=== PATIENT | female | born 1930 | race Caucasian/White ===

== ENCOUNTER 2018-05-31 11:05 | Inpatient (IN) | payer BC, MEDICARE ==
--- NOTE | 2018-05-31 11:57 | ED ---
General Adult HPI - General Chief complaint: Arrhythmia/Palpitations Stated complaint: Chest pain Source: patient, family Mode of arrival: wheelchair Limitations: no limitations - History of Present Illness Initial comments: Dictation was produced using [employer] dictation software. please excuse any grammatical, word or spelling errors. Chief Complaint: 88-year-old female past medical history of hypertension, dysrhythmia presents with generalized weakness and abnormal heart rate History of Present Illness: Is 80-year-old female sent in by primary care physician for dysrhythmia. EKG performed at PCPs office showed atrial flutter. Patient has been feeling generally weak for the last 2-3 days. Patient has a history of this dysrhythmia. She takes 25 mg of diltiazem daily. She states that she was instructed to take 2 pills if she began feeling palpitations. Patient denies the sensation of palpitations. She went to her PCPs office today for generalized weakness. Patient denies any pain complaints. She does have some shortness of breath however only with exertion. The ROS documented in this emergency department record has been reviewed and confirmed by me. Those systems with pertinent positive or negative responses have been documented in the HPI. All other systems are other negative and/or noncontributory. - Related Data Home Medications Medication Instructions Recorded Confirmed Aspirin 81 mg PO DAILY 10/24/15 05/31/18 Diltiazem Cd [Cardizem Cd] 120 mg PO DAILY 10/24/15 05/31/18 HYDROcodone/APAP 7.5-325MG [[place] 1 tab PO TID PRN 10/24/15 05/31/18 7.5-325] Metoprolol Tartrate [Lopressor] 25 mg PO BID 10/24/15 05/31/18 Raloxifene [Evista] 60 mg PO DAILY 10/24/15 05/31/18 Spironolactone-Hctz 25-25Mg 1 each PO DAILY 10/24/15 05/31/18 [Aldactazide 25-25Mg] Allergies Allergy/AdvReac Type Severity Reaction Status Date / Time No Known Allergies Allergy Verified 05/31/18 12:14 Review of Systems ROS Statement: Those systems with pertinent positive or pertinent negative responses have been documented in the HPI. ROS Other: All systems not noted in ROS Statement are negative. Past Medical History Past Medical History: Eye Disorder, Hypertension, Musculoskeletal Disorder, Osteoarthritis (OA) Additional Past Medical History / Comment(s): cataracts, uses cane History of Any Multi-Drug Resistant Organisms: None Reported Past Surgical History: Appendectomy, Back Surgery, Section, Joint Replacement, Tubal Ligation Additional Past Surgical History / Comment(s): left knee & left shoulder replaced, back surg. x 2 Past Anesthesia/Blood Transfusion Reactions: Postoperative Nausea & Vomiting ( PONV) Past Psychological History: No Psychological Hx Reported Smoking Status: Former smoker Past Alcohol Use History: Occasional Past Drug Use History: None Reported - Past Family History Sister(s) Family Medical History: Cancer General Exam - General Exam Comments Initial Comments: PHYSICAL EXAM: General Impression: Alert and oriented x3, not in acute distress HEENT: Normocephalic atraumatic, extra-ocular movements intact, pupils equal and reactive to light bilaterally, mucous membranes moist. Cardiovascular: Tachycardic Chest: Lungs clear to auscultation bilaterally, no rhonchi, no wheeze, no rales Abdomen: Bowel sounds present, abdomen soft, non-tender, non-distended, no organomegaly Musculoskeletal: Pulses present and equal in all extremities, no peripheral edema Motor: Power 5/5 bilaterally, no focal deficits noted Neurological: CN II-XII grossly intact, no focal motor or sensory deficits noted Skin: Intact with no visualized rashes Psych: Normal affect and mood Limitations: no limitations Course Vital Signs 05/31/18 05/31/18 11:15 13:21 Temperature 98.0 F Pulse Rate 147 H 78 Respiratory 18 18 Rate Blood Pressure 105/71 100/68 O2 Sat by Pulse 90 L 99 Oximetry Medical Decision Making - Medical Decision Making ED course: Year-old female past medical history of dysrhythmia presents with clinical presentation consistent with atrial flutter. Patient having any other symptoms. No infectious complaints. At this point I believe it's indicated to start patient on rate controlling medications. As upon arrival shows heart rate of 147, O2 sat of 90, rest of vital signs within normal limits. Patient started on Cardizem drip.Patient started on heparin due to tachydysrhythmia ongoing for more than 48 hours. Laboratory evaluation obtained. White blood cell count 11.5, rest of CBC unremarkable. Coag panel is unremarkable. Chemistry panel shows sodium 128 with chloride 89. There is a mild Acidosis. Glucose is 122. Troponin is 0.048. Urinalysis is negative. Troponin elevation is likely secondary to tachydysrhythmia. Patient labs suggests dehydration. Patient given intravenous fluids. She started on Cardizem. Patient be admitted with cardiology on consult. EKG Interpretation: A 12 lead EKG was obtained. It was interpreted by myself and attending physician. There is a P wave before every QRS complex. Rate is 146. Rhythm is atrial flutter, QRS 88, QTc 523. QT is not prolonged. - Lab Data Result diagrams: 05/31/18 11:28 05/31/18 11:28 Lab Results 05/31/18 05/31/18 05/31/18 Range/Units 11:28 11:28 11:28 WBC 11.5 H (3.8-10.6) k/uL RBC 5.19 (3.80-5.40) m/uL Hgb 15.2 (11.4-16.0) gm/dL Hct 46.1 H (34.0-46.0) % MCV 88.7 (80.0-100.0) fL MCH 29.3 (25.0-35.0) pg MCHC 33.0 (31.0-37.0) g/dL RDW 12.7 (11.5-15.5) % Plt Count 357 (150-450) k/uL Neutrophils % 82 % Lymphocytes % 11 % Monocytes % 5 % Eosinophils % 1 % Basophils % 0 % Neutrophils # 9.5 H (1.3-7.7) k/uL Lymphocytes # 1.2 (1.0-4.8) k/uL Monocytes # 0.6 (0-1.0) k/uL Eosinophils # 0.1 (0-0.7) k/uL Basophils # 0.0 (0-0.2) k/uL PT (9.0-12.0) sec INR (<1.2) APTT (22.0-30.0) sec Sodium 128 L (137-145) mmol/L Potassium 4.1 (3.5-5.1) mmol/L Chloride 89 L (98-107) mmol/L Carbon Dioxide 23 (22-30) mmol/L Anion Gap 16 mmol/L BUN 20 H (7-17) mg/dL Creatinine 0.86 (0.52-1.04) mg/dL Est GFR (CKD-EPI)AfAm 70 (>60 ml/min/1.73 sqM) Est GFR (CKD-EPI)NonAf 61 (>60 ml/min/1.73 sqM) Glucose 122 H (74-99) mg/dL Calcium 10.2 (8.4-10.2) mg/dL Magnesium 1.7 (1.6-2.3) mg/dL Total Bilirubin 0.8 (0.2-1.3) mg/dL AST 24 (14-36) U/L ALT 26 (9-52) U/L Alkaline Phosphatase 52 (38-126) U/L Total Creatine Kinase 27 L (30-135) U/L CK-MB (CK-2) 1.9 (0.0-2.4) ng/mL CK-MB (CK-2) Rel Index 7.0 Troponin I 0.048 H* (0.000-0.034) ng/mL Total Protein 7.4 (6.3-8.2) g/dL Albumin 4.4 (3.5-5.0) g/dL TSH 1.380 (0.465-4.680) mIU/L Urine Color Urine Appearance (Clear) Urine pH (5.0-8.0) Ur Specific [place] (1.001-1.035) Urine Protein (Negative) Urine Glucose (UA) (Negative) Urine Ketones (Negative) Urine Blood (Negative) Urine Nitrite (Negative) Urine Bilirubin (Negative) Urine Urobilinogen (<2.0) mg/dL Ur Leukocyte Esterase (Negative) Urine RBC (0-5) /hpf Urine WBC (0-5) /hpf Ur Squamous Epith Cells (0-4) /hpf Urine Mucus (None) /hpf 05/31/18 05/31/18 Range/Units 11:28 12:59 WBC (3.8-10.6) k/uL RBC (3.80-5.40) m/uL Hgb (11.4-16.0) gm/dL Hct (34.0-46.0) % MCV (80.0-100.0) fL MCH (25.0-35.0) pg MCHC (31.0-37.0) g/dL RDW (11.5-15.5) % Plt Count (150-450) k/uL Neutrophils % % Lymphocytes % % Monocytes % % Eosinophils % % Basophils % % Neutrophils # (1.3-7.7) k/uL Lymphocytes # (1.0-4.8) k/uL Monocytes # (0-1.0) k/uL Eosinophils # (0-0.7) k/uL Basophils # (0-0.2) k/uL PT 10.4 (9.0-12.0) sec INR 1.1 (<1.2) APTT 23.6 (22.0-30.0) sec Sodium (137-145) mmol/L Potassium (3.5-5.1) mmol/L Chloride (98-107) mmol/L Carbon Dioxide (22-30) mmol/L Anion Gap mmol/L BUN (7-17) mg/dL Creatinine (0.52-1.04) mg/dL Est GFR (CKD-EPI)AfAm (>60 ml/min/1.73 sqM) Est GFR (CKD-EPI)NonAf (>60 ml/min/1.73 sqM) Glucose (74-99) mg/dL Calcium (8.4-10.2) mg/dL Magnesium (1.6-2.3) mg/dL Total Bilirubin (0.2-1.3) mg/dL AST (14-36) U/L ALT (9-52) U/L Alkaline Phosphatase (38-126) U/L Total Creatine Kinase (30-135) U/L CK-MB (CK-2) (0.0-2.4) ng/mL CK-MB (CK-2) Rel Index Troponin I (0.000-0.034) ng/mL Total Protein (6.3-8.2) g/dL Albumin (3.5-5.0) g/dL TSH (0.465-4.680) mIU/L Urine Color Yellow Urine Appearance Clear (Clear) Urine pH 7.0 (5.0-8.0) Ur Specific [place] 1.009 (1.001-1.035) Urine Protein Negative (Negative) Urine Glucose (UA) Negative (Negative) Urine Ketones Negative (Negative) Urine Blood Negative (Negative) Urine Nitrite Negative (Negative) Urine Bilirubin Negative (Negative) Urine Urobilinogen <2.0 (<2.0) mg/dL Ur Leukocyte Esterase Trace H (Negative) Urine RBC 11 H (0-5) /hpf Urine WBC 1 (0-5) /hpf Ur Squamous Epith Cells <1 (0-4) /hpf Urine Mucus Occasional H (None) /hpf Disposition Clinical Impression: Atrial flutter Disposition: ADMITTED IP TO THIS HOSP Condition: Fair Referrals: Quinn Dailey MD [Primary Care Provider] - 1-2 days Decision Time: 13:59
[2018-05-31 12:06] LABS: Basophils % (A) 0 %; Eosinophils # (A) 0.1 k/uL (0-0.7); Eosinophils % (A) 1 %; HCT 46.1 % (34.0-46.0); HGB 15.2 gm/dL (11.4-16.0); Lymphocytes # (A) 1.2 k/uL (1.0-4.8); Lymphocytes % (A) 11 %; MCH 29.3 pg (25.0-35.0); MCV 88.7 fL (80.0-100.0); Mean Platelet Volume 6.7; Monocytes # (A) 0.6 k/uL (0-1.0); Monocytes % (A) 5 %; Neutrophils # (A) 9.5 k/uL (1.3-7.7); Neutrophils % (A) 82 %; Platelet Count 357 k/uL (150-450); RBC 5.19 m/uL (3.80-5.40); RDW 12.7 % (11.5-15.5); WBC 11.5 k/uL (3.8-10.6)
[2018-05-31 12:25] LABS: Albumin 4.4 g/dL (3.5-5.0); Calcium 10.2 mg/dL (8.4-10.2); Magnesium 1.7 mg/dL (1.6-2.3); Potassium 4.1 mmol/L (3.5-5.1); Total Bilirubin 0.8 mg/dL (0.2-1.3); Total Protein 7.4 g/dL (6.3-8.2)
[2018-05-31 12:33] LABS: INR 1.1 (<1.2); Partial Thromboplastin Time 23.6 sec (22.0-30.0); Prothrombin Time 10.4 sec (9.0-12.0)
[2018-05-31 12:42] LABS: Creatine Kinase MB 1.9 ng/mL (0.0-2.4)
[2018-05-31] MEDS: DILTIAZEM 50 MG in SODIUM CHLORIDE 0.9% 40 ML IV SCH (12:42)
[2018-05-31 12:46] LABS: Troponin I 0.048 ng/mL (0.000-0.034)
[2018-05-31] MEDS ORDERED: HEPARIN SODIUM,PORCINE 5,000 UNIT/ML 1 ML VIAL IV PRN (12:48)
[2018-05-31] MEDS ORDERED: HEPARIN SODIUM,PORCINE 5,000 UNIT/ML 1 ML VIAL IV ONE (12:48)
[2018-05-31] MEDS ORDERED: DILTIAZEM DRIP BOLUS FROM BAG 1 MG SOLN IV ONE (12:49)
[2018-05-31] MEDS ORDERED: HEPARIN SOD,PORK IN 0.45% NACL 25,000 UNIT in 0.45% NACL 1 500ML.BAG IV SCH (13:00)
--- NOTE | 2018-05-31 13:10 | XR ---
EXAMINATION TYPE: XR chest 2V DATE OF EXAM: 05/31/2018 COMPARISON: CT chest 05/03/2012 HISTORY: Dysrhythmia TECHNIQUE: Frontal and lateral views of the chest are obtained. FINDINGS: There is a substernal nodular density which likely corresponds to previously described nod ule from prior CT. The smaller nodule seen on prior exam are not seen definitively. There is scarring suspected at the lingula. No evident pneumothorax or pleural effusion. Patient is rotated and there are overlying cardiac leads. Arthropathy noted in the right shoulder. Postop change noted to the left shoulder. Heart size is likely within normal limits. Pulmonary vascularity and gill are unremarkable . Possible scarring right lower lobe. The aorta is dense. There is mitral annular calcification. IMPRESSION: Indeterminate lung nodule as described. Follow-up recommended.
[2018-05-31 13:12] LABS: Appearance,Urine Clear (Clear); Bilirubin,Urine Negative (Negative); Blood,Urine Negative (Negative); Color,Urine Yellow; Glucose,Urine (UA) Negative (Negative); Ketones,Urine Negative (Negative); Leukocyte Esterase,Urine Trace (Negative); Mucus,Urine Occasional /hpf; Nitrite,Urine Negative (Negative); Protein,Urine Negative (Negative); RBC,Urine 11 /hpf (0-5); Specific Gravity,Urine 1.009 (1.001-1.035); Squamous Epithelial Cell,Urine <1 /hpf (0-4); Urobilinogen,Urine <2.0 mg/dL (<2.0); WBC,Urine 1 /hpf (0-5)
[2018-05-31] MEDS ORDERED: NALOXONE 0.4 MG/ML 1 ML VIAL IV PRN (13:54)
--- NOTE | 2018-05-31 15:29 | P.HPIM ---
History of Present Illness H&P Date: 05/31/18 Chief Complaint: Generalized weakness This is a 88-year-old female with past medical history noted below who presented to the emergency room with generalized weakness. Patient said that her symptoms started 3 days ago when she was feeling generally weak and lightheaded. She denies any chest pain or shortness of breath. She denies any muscle aches. She said that she was getting dizzy when she stand up as well. She went to see her primary care physician An EKG in the office showed evidence of atrial flutter with rapid ventricular response. She was sent to the emergency room for further evaluation. Patient said that she was diagnosed some arrhythmia in the past that she is not sure what it is exactly. 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 She has extended release Cardizem 120 mg listed on her medication list as once daily that she said that she was directed by her PCP to take half a tablet on a daily basis unless her heart rate is elevated then she can take the other half in the evening. She is otherwise known to have underlying hypertension. Patient was evaluated in the emergency room and was found to have atrial flutter with heart rate up to 150. She was started on IV Cardizem drip. She was also started on IV heparin. Chest x-ray showed evidence of a lung nodule. Patient will be admitted to the hospital for further evaluation. She is hemodynamically stable. I have seen and evaluated the patient in the emergency room. She denies any chest pain at this time. Her heart rate is in the 70s on IV Cardizem drip. She is awaiting cardiology evaluation. Review of Systems Review of system: 14 points review of systems were obtained and were negative except to what were mentioned in the HPI. Past Medical History Past Medical History: Eye Disorder, Hypertension, Musculoskeletal Disorder, Osteoarthritis (OA) Additional Past Medical History / Comment(s): has lt eye cataract(had sx on rt one), uses cane when up. "irreg heart beat-takes cardizem", "takes ativan for sleep" History of Any Multi-Drug Resistant Organisms: None Reported Past Surgical History: Appendectomy, Back Surgery, Section, Joint Replacement, Tubal Ligation Additional Past Surgical History / Comment(s): left knee & left shoulder replaced, back surg. x 2, rt eye cataract removed-has lens implant, 1 upper dental implant. Past Anesthesia/Blood Transfusion Reactions: Postoperative Nausea & Vomiting ( PONV) Smoking Status: Former smoker - Past Family History Sister(s) Family Medical History: Cancer Mother Family Medical History: Coronary Artery Disease (CAD) Additional Family Medical History / Comment(s): "heart problems" Father Additional Family Medical History / Comment(s): alcoholic Medications and Allergies Home Medications Medication Instructions Recorded Confirmed Type Aspirin 81 mg PO DAILY 10/24/15 05/31/18 History Diltiazem Cd [Cardizem Cd] 120 mg PO DAILY 10/24/15 05/31/18 History HYDROcodone/APAP 7.5-325MG [[place] 1 tab PO TID PRN 10/24/15 05/31/18 History 7.5-325] Metoprolol Tartrate [Lopressor] 25 mg PO BID 10/24/15 05/31/18 History Raloxifene [Evista] 60 mg PO DAILY 10/24/15 05/31/18 History Spironolactone-Hctz 25-25Mg 1 each PO DAILY 10/24/15 05/31/18 History [Aldactazide 25-25Mg] Allergies Allergy/AdvReac Type Severity Reaction Status Date / Time No Known Allergies Allergy Verified 05/31/18 12:14 Physical Exam Vitals: Vital Signs Temp Pulse Resp BP Pulse Ox 05/31/18 14:00 49 L 18 109/63 98 05/31/18 13:21 78 18 100/68 99 05/31/18 11:15 98.0 F 147 H 18 105/71 90 L Intake and Output 05/31/18 05/31/18 05/31/18 06:59 14:59 22:59 Other: Weight 73.482 kg General: The patient is awake and alert, in no distress Eye: there is normal conjunctiva bilaterally. Neck: The neck is supple, there is no JVD. Cardiovascular: Normal S1-S2, no S3-S4, no murmurs. Respiratory: Lungs clear to auscultation bilaterally Gastrointestinal: Abdomen is soft, nontender Musculoskeletal: There is no pedal edema. Neurological:. Speech is normal. Skin: Skin is warm and dry Results CBC & Chem 7: 05/31/18 11:28 05/31/18 11:28 Labs: Abnormal Lab Results - Last 24 Hours (Table) 05/31/18 05/31/18 05/31/18 Range/Units 11:28 11:28 11:28 WBC 11.5 H (3.8-10.6) k/uL Hct 46.1 H (34.0-46.0) % Neutrophils # 9.5 H (1.3-7.7) k/uL Sodium 128 L (137-145) mmol/L Chloride 89 L (98-107) mmol/L BUN 20 H (7-17) mg/dL Glucose 122 H (74-99) mg/dL Total Creatine Kinase 27 L (30-135) U/L Troponin I 0.048 H* (0.000-0.034) ng/mL Ur Leukocyte Esterase (Negative) Urine RBC (0-5) /hpf Urine Mucus (None) /hpf 05/31/18 Range/Units 12:59 WBC (3.8-10.6) k/uL Hct (34.0-46.0) % Neutrophils # (1.3-7.7) k/uL Sodium (137-145) mmol/L Chloride (98-107) mmol/L BUN (7-17) mg/dL Glucose (74-99) mg/dL Total Creatine Kinase (30-135) U/L Troponin I (0.000-0.034) ng/mL Ur Leukocyte Esterase Trace H (Negative) Urine RBC 11 H (0-5) /hpf Urine Mucus Occasional H (None) /hpf Assessment and Plan Assessment: 1. Atrial flutter with rapid ventricular response, patient was started on IV Cardizem drip and IV heparin. Awaiting cardiology evaluation. Electrolytes within acceptable range except for hyponatremia. Thyroid function test normal. I would order echocardiogram. Resume home dose of metoprolol. Continue telemetry monitoring. 2. Essential hypertension, blood pressure on the lower side. Discontinue hydrochlorothiazide/spironolactone. We will continue to monitor closely. 3. Hypovolemic hyponatremia, may be attributed to diuretics use. Currently discontinued. I would continue gentle IV fluid hydration and recheck of work in the morning. 4. Dizziness, most likely secondary to underlying atrial flutter. I would check orthostatic blood pressure 5. Lung nodule. Seen previously on CT. Consider repeat imaging after discharge Today, I reviewed her medication list and lab work results. Continue current regimen. Awaiting cardiology evaluation. Patient and her son were updated about her current clinical condition. All of their questions answered to their satisfaction.
[2018-05-31] MEDS: SODIUM CHLORIDE 0.9% 1,000 ML IV SCH (18:16)
[2018-05-31] MEDS: LORazepam 1 MG TAB PO PRN (21:48)
[2018-05-31] MEDS: METOPROLOL TARTRATE 25 MG TAB PO SCH (21:48)
[2018-06-01] MEDS: DILTIAZEM 50 MG in SODIUM CHLORIDE 0.9% 40 ML IV SCH ×2 (03:18→10:57)
[2018-06-01] MEDS: HYDROcodone/APAP 7.5-325MG 1 EACH TAB PO PRN ×2 (03:19→17:26)
[2018-06-01 07:00] LABS: Basophils % (A) 0 %; Eosinophils # (A) 0.1 k/uL (0-0.7); Eosinophils % (A) 1 %; HCT 41.2 % (34.0-46.0); HGB 13.3 gm/dL (11.4-16.0); Lymphocytes # (A) 1.8 k/uL (1.0-4.8); Lymphocytes % (A) 24 %; MCH 29.3 pg (25.0-35.0); MCHC 32.2 g/dL (31.0-37.0); MCV 90.9 fL (80.0-100.0); Monocytes # (A) 0.7 k/uL (0-1.0); Monocytes % (A) 9 %; Neutrophils # (A) 4.8 k/uL (1.3-7.7); Neutrophils % (A) 64 %; Platelet Count 310 k/uL (150-450); RBC 4.53 m/uL (3.80-5.40); WBC 7.4 k/uL (3.8-10.6)
[2018-06-01 07:17] LABS: Magnesium 1.6 mg/dL (1.6-2.3); Potassium 3.7 mmol/L (3.5-5.1)
[2018-06-01] MEDS: ASPIRIN 81 MG PO SCH (08:49)
[2018-06-01] MEDS: METOPROLOL TARTRATE 25 MG TAB PO SCH ×3 (08:49→21:53)
[2018-06-01] MEDS: RALOXIFENE 60 MG TAB PO SCH (08:50)
--- NOTE | 2018-06-01 10:53 | P.PN ---
Subjective Progress Note Date: 06/01/18 Patient said that she is not feeling well today. She still having palpitation in her chest. She is tachycardic on telemetry monitoring with heart rate between 101 130. Cardizem drip was discontinued overnight. Patient otherwise denies any chest pain or shortness of breath. Objective - Vital Signs Vital signs: Vital Signs Temp 97.1 F L 06/01/18 08:00 Pulse 98 06/01/18 08:00 Resp 18 06/01/18 08:00 BP 131/80 06/01/18 08:00 Pulse Ox 98 06/01/18 08:00 Intake & Output 05/31/18 06/01/18 06/01/18 18:59 06:59 18:59 Intake Total 667 Balance 667 Weight 74 kg 73.4 kg Intake: Intake, IV Titration 427 Amount Heparin Sod,Pork in 0.45% 102 NaCl 25,000 unit In 0.45 % NaCl 1 500ml.bag @ 12 UNITS/KG/HR 17.63 mls/hr IV .Q24H DAXA Rx#: [id number] Sodium Chloride 0.9% 1, 325 000 ml @ 50 mls/hr IV . Q20H DAXA Rx#:[id number] Oral 240 Other: Voiding Method Toilet Toilet # Voids 3 - Exam General: The patient is awake and alert, in no distress Eye: there is normal conjunctiva bilaterally. Neck: The neck is supple, there is no JVD. Cardiovascular: Normal S1-S2, no S3-S4, no murmurs. Respiratory: Lungs clear to auscultation bilaterally Gastrointestinal: Abdomen is soft, nontender Musculoskeletal: There is no pedal edema. Neurological:. Speech is normal. Skin: Skin is warm and dry - Labs CBC & Chem 7: 06/01/18 06:39 06/01/18 06:39 Labs: Abnormal Lab Results - Last 24 Hours (Table) 05/31/18 05/31/18 05/31/18 Range/Units 11:28 11:28 11:28 WBC 11.5 H (3.8-10.6) k/uL Hct 46.1 H (34.0-46.0) % Neutrophils # 9.5 H (1.3-7.7) k/uL APTT (22.0-30.0) sec Sodium 128 L (137-145) mmol/L Chloride 89 L (98-107) mmol/L BUN 20 H (7-17) mg/dL Glucose 122 H (74-99) mg/dL Total Creatine Kinase 27 L (30-135) U/L Troponin I 0.048 H* (0.000-0.034) ng/mL Ur Leukocyte Esterase (Negative) Urine RBC (0-5) /hpf Urine Mucus (None) /hpf 05/31/18 05/31/18 06/01/18 Range/Units 12:59 19:10 06:39 WBC (3.8-10.6) k/uL Hct (34.0-46.0) % Neutrophils # (1.3-7.7) k/uL APTT 51.4 H (22.0-30.0) sec Sodium 130 L (137-145) mmol/L Chloride 96 L (98-107) mmol/L BUN 18 H (7-17) mg/dL Glucose 101 H (74-99) mg/dL Total Creatine Kinase (30-135) U/L Troponin I (0.000-0.034) ng/mL Ur Leukocyte Esterase Trace H (Negative) Urine RBC 11 H (0-5) /hpf Urine Mucus Occasional H (None) /hpf 06/01/18 06/01/18 Range/Units 06:39 06:39 WBC (3.8-10.6) k/uL Hct (34.0-46.0) % Neutrophils # (1.3-7.7) k/uL APTT 53.4 H (22.0-30.0) sec Sodium (137-145) mmol/L Chloride (98-107) mmol/L BUN (7-17) mg/dL Glucose (74-99) mg/dL Total Creatine Kinase (30-135) U/L Troponin I 0.073 H* (0.000-0.034) ng/mL Ur Leukocyte Esterase (Negative) Urine RBC (0-5) /hpf Urine Mucus (None) /hpf Assessment and Plan Assessment: 1. Atrial flutter with rapid ventricular response, patient was started on IV Cardizem drip and IV heparin. Awaiting cardiology evaluation. Thyroid function test normal. Echocardiogram done awaiting. Resume home dose of metoprolol. Continue telemetry monitoring. 2. Essential hypertension, blood pressure on the lower side. I discontinued hydrochlorothiazide/spironolactone. We will continue to monitor closely. 3. Hypovolemic hyponatremia, may be attributed to diuretics use. Currently discontinued. I would continue gentle IV fluid hydration and recheck of work in the morning. 4. Dizziness, most likely secondary to underlying atrial flutter and possible orthostatic hypotension. Repeat orthostatic blood pressur 5. Lung nodule. Seen previously on CT. Consider repeat imaging after discharge Today, I reviewed her medication list and lab work results. Continue current regimen. Awaiting cardiology evaluation. Patient and her son were updated about her current clinical condition. All of their questions answered to their satisfaction.
--- NOTE | 2018-06-01 10:55 | P.CRDCN ---
History of Present Illness Consult date: 06/01/18 Requesting physician: Consuelo Lux Consult reason: atrial fibrillation Chief complaint: Weakness ,chest pressure History of present illness: This is a pleasant 88-year-old female with past medical history of hypertension, arrhythmia, for which she was on Cardizem 120 at home, she was directed by her primary care physician to take a half a pill in the morning and a half a pill in the evening and that if she felt herself go into a rapid irregular rhythm she was okay to take an additional dose. For approximately 3 days the patient has been experiencing symptoms of weakness and generalized lightheadedness, she also states that she's been having occasional episodes where she feels dull heaviness in her chest. She does also state that when she gets up too fast she has some mild dizziness. Because of the symptoms primarily of weakness she went to primary care physician's office, not her regular doctor he is currently on vacation, and EKG was performed there, patient was found to be in rapid atrial flutter with a heart rate in the 150s to 160s and patient was advised to come to the hospital for further evaluation. Patient denied at that time feeling any palpitations or heart racing, no chest discomfort at that time. Initial EKG on presentation here showed typical atrial flutter with 2-1 AV conduction. Chest x-ray showed intermediate lung nodule as described. Substernal nodular density which is likely related to previously described nodule from prior CAT scan. Blood pressure on arrival here 105/70 with a heart rate in the 150s, 90% on room air, afebrile. Blood pressure this morning 130/80 with a heart rate in the 90s, 98% on room air. Repeat EKG shows atrial fibrillation with moderately rapid ventricular response. White blood cell count on admission 11.5, 7.4 this morning, hemoglobin 15.2 on admission, 13.3 this morning. Platelet count 310. Sodium on admission 128, 130 this morning. BUN 18, creatinine 0.9, magnesium 1.6. Potassium 3.7. Troponin 0.048, 0.073. TSH 1.3. At the time of my examination this morning, patient feels well, no complaints. Past Medical History Past Medical History: Eye Disorder, Hypertension, Musculoskeletal Disorder, Osteoarthritis (OA) Additional Past Medical History / Comment(s): has lt eye cataract(had sx on rt one), uses cane when up. "irreg heart beat-takes cardizem", "takes ativan for sleep" History of Any Multi-Drug Resistant Organisms: None Reported Past Surgical History: Appendectomy, Back Surgery, Section, Joint Replacement, Tubal Ligation Additional Past Surgical History / Comment(s): left knee & left shoulder replaced, back surg. x 2, rt eye cataract removed-has lens implant, 1 upper dental implant. Past Anesthesia/Blood Transfusion Reactions: Postoperative Nausea & Vomiting ( PONV) Smoking Status: Former smoker - Past Family History Sister(s) Family Medical History: Cancer Mother Family Medical History: Coronary Artery Disease (CAD) Additional Family Medical History / Comment(s): "heart problems" Father Additional Family Medical History / Comment(s): alcoholic Medications and Allergies Home Medications Medication Instructions Recorded Confirmed Type Aspirin 81 mg PO DAILY 10/24/15 05/31/18 History Diltiazem Cd [Cardizem Cd] 120 mg PO DAILY 10/24/15 05/31/18 History HYDROcodone/APAP 7.5-325MG [[place] 1 tab PO TID PRN 10/24/15 05/31/18 History 7.5-325] Metoprolol Tartrate [Lopressor] 25 mg PO BID 10/24/15 05/31/18 History Raloxifene [Evista] 60 mg PO DAILY 10/24/15 05/31/18 History Spironolactone-Hctz 25-25Mg 1 each PO DAILY 10/24/15 05/31/18 History [Aldactazide 25-25Mg] LORazepam [Ativan] 1 mg PO HS PRN 05/31/18 05/31/18 History Allergies Allergy/AdvReac Type Severity Reaction Status Date / Time No Known Allergies Allergy Verified 05/31/18 12:14 Physical Exam Vitals: Vital Signs Temp Pulse Pulse Pulse Resp BP BP 06/01/18 08:00 97.1 F L 98 18 131/80 06/01/18 03:58 97.7 F 75 17 103/67 05/31/18 23:45 98.0 F 90 18 95/64 05/31/18 20:00 97.7 F 111 H 18 97/61 05/31/18 18:04 97 F L 78 18 108/57 05/31/18 18:00 78 20 05/31/18 17:32 70 16 108/68 05/31/18 16:10 87 16 108/68 05/31/18 15:20 95 18 122/64 05/31/18 14:00 49 L 18 109/63 05/31/18 13:21 78 18 100/68 05/31/18 11:15 98.0 F 147 H 18 105/71 Pulse Ox 06/01/18 08:00 98 06/01/18 03:58 98 05/31/18 23:45 98 05/31/18 20:00 95 05/31/18 18:04 05/31/18 18:00 05/31/18 17:32 99 05/31/18 16:10 98 05/31/18 15:20 95 05/31/18 14:00 98 05/31/18 13:21 99 05/31/18 11:15 90 L Intake and Output 05/31/18 06/01/18 06/01/18 22:59 06:59 14:59 Intake Total 667 Balance 667 Intake: Intake, IV Titration 427 Amount Heparin Sod,Pork in 0.45% 102 NaCl 25,000 unit In 0.45 % NaCl 1 500ml.bag @ 12 UNITS/KG/HR 17.63 mls/hr IV .Q24H [facility] Rx#: [id number] Sodium Chloride 0.9% 1, 325 000 ml @ 50 mls/hr IV . Q20H [facility] Rx#:[id number] Oral 240 Other: Voiding Method Toilet Toilet Toilet # Voids 3 Weight 74 kg 73.4 kg PHYSICAL EXAMINATION: GENERAL: 88-year-old female in no acute distress at the time of my examination HEENT: Head is atraumatic, normocephalic. Pupils equal, round. Sclera anicteric. Conjunctiva are clear. Mucous membranes of the mouth are moist. Neck is supple. There is no elevated jugular venous pressure. No carotid bruit is heard. HEART EXAMINATION: S1 and S2 irregularly irregular systolic murmur is heard. CHEST EXAMINATION: Lungs are clear to auscultation and precussion. No chest wall tenderness is noted on palpation or with deep breathing. ABDOMEN: Soft, nontender. Bowel sounds are heard. No organomegaly noted. EXTREMITIES: 2+ peripheral pulses with no evidence of peripheral edema and no calf tenderness noted. Mild discoloration noted in bilateral lower extremities NEUROLOGIC patient is awake, alert and oriented X3. . Results 06/01/18 06:39 06/01/18 06:39 Cardiac Enzymes 05/31/18 05/31/18 06/01/18 Range/Units 11:28 11:28 06:39 AST 24 (14-36) U/L CK-MB (CK-2) 1.9 (0.0-2.4) ng/mL Troponin I 0.048 H* 0.073 H* (0.000-0.034) ng/mL Coagulation 05/31/18 05/31/18 06/01/18 Range/Units 11:28 19:10 06:39 PT 10.4 (9.0-12.0) sec APTT 23.6 51.4 H 53.4 H (22.0-30.0) sec CBC 05/31/18 06/01/18 Range/Units 11:28 06:39 WBC 11.5 H 7.4 (3.8-10.6) k/uL RBC 5.19 4.53 (3.80-5.40) m/uL Hgb 15.2 13.3 (11.4-16.0) gm/dL Hct 46.1 H 41.2 (34.0-46.0) % Plt Count 357 310 (150-450) k/uL Comprehensive Metabolic Panel 05/31/18 06/01/18 Range/Units 11:28 06:39 Sodium 128 L 130 L (137-145) mmol/L Potassium 4.1 3.7 (3.5-5.1) mmol/L Chloride 89 L 96 L (98-107) mmol/L Carbon Dioxide 23 26 (22-30) mmol/L BUN 20 H 18 H (7-17) mg/dL Creatinine 0.86 0.92 (0.52-1.04) mg/dL Glucose 122 H 101 H (74-99) mg/dL Calcium 10.2 9.0 (8.4-10.2) mg/dL AST 24 (14-36) U/L ALT 26 (9-52) U/L Alkaline Phosphatase 52 (38-126) U/L Total Protein 7.4 (6.3-8.2) g/dL Albumin 4.4 (3.5-5.0) g/dL Current Medications Generic Name Dose Route Start Last Admin Trade Name Freq PRN Reason Stop Dose Admin Hydrocodone Bitart/Acetaminophen 1 each 05/31/18 15:18 06/01/18 03:19 [place] 7.5-325 PO 1 each TID PRN Administration Moderate Pain Aspirin 81 mg 06/01/18 09:00 06/01/18 08:49 Aspirin PO 81 mg DAILY [facility] Administration Heparin Sodium (Porcine) 0 unit 05/31/18 12:48 Heparin IV PER PROTOCOL PRN Low PTT Protocol Diltiazem HCl 50 mg/ Sodium 50 mls @ 5 mls/hr 05/31/18 12:00 06/01/18 03:18 Chloride IV Not Given .Q10H [facility] 5 MG/HR Heparin Sodium/Sodium Chloride 500 mls @ 17.63 mls/hr 05/31/18 13:00 13:31 25,000 unit/ Sodium Chloride IV 12 units/kg/hr .Q24H [facility] 17.63 mls/hr Administration Protocol 12 UNITS/KG/HR Sodium Chloride 1,000 mls @ 50 mls/hr 05/31/18 15:30 05/31/18 18:16 Saline 0.9% IV Not Given .Q20H [facility] Lorazepam 1 mg 05/31/18 21:34 05/31/18 21:48 Ativan PO 1 mg HS PRN Administration Insomnia Metoprolol Tartrate 25 mg 05/31/18 21:00 06/01/18 08:49 Lopressor PO 25 mg BID [facility] Administration Naloxone HCl 0.2 mg 05/31/18 13:54 Narcan IV Q2M PRN Opioid Reversal Raloxifene HCl 60 mg 06/01/18 09:00 06/01/18 08:50 Evista PO 60 mg DAILY [facility] Administration Intake and Output 05/31/18 06/01/18 06/01/18 22:59 06:59 14:59 Intake Total 667 Balance 667 Intake: Intake, IV Titration 427 Amount Heparin Sod,Pork in 0.45% 102 NaCl 25,000 unit In 0.45 % NaCl 1 500ml.bag @ 12 UNITS/KG/HR 17.63 mls/hr IV .Q24H [facility] Rx#: [id number] Sodium Chloride 0.9% 1, 325 000 ml @ 50 mls/hr IV . Q20H [facility] Rx#:[id number] Oral 240 Other: Voiding Method Toilet Toilet Toilet # Voids 3 Weight 74 kg 73.4 kg 06/01/18 06:39 06/01/18 06:39 EKG Interpretations (text) Initial EKG showed atrial flutter with rapid ventricular response, subsequent EKG this morning shows atrial fibrillation with moderately rapid ventricular Assessment and Plan Plan: Assessment and plan #1 atrial flutter with rapid ventricular response currently in atrial fibrillation with moderately rapid ventricular rate. TSH is normal #2 history of atrial arrhythmia, on Cardizem at home #3 hypertension #4 hypomagnesemia Plan We will obtain an echocardiogram with Doppler study. We will also replace the potassium and magnesium levels. Should is currently on heparin and she has been educated regarding the need for anticoagulation. We will check into one of the newer anticoagulants to see if the patient has coverage, if so we will initiate Eliquis 2-1/2 mg one tablet by mouth twice a day. We will discontinue the IV Cardizem and increase her dose of beta lily to 25 mg one tablet by mouth 3 times a day. Further recommendations to follow. DNP note has been reviewed, I agree with a documented findings and plan of care. Patient was seen and examined.
[2018-06-01] MEDS: APIXABAN 2.5 MG TABLET PO SCH ×2 (13:24→21:52)
--- NOTE | 2018-06-01 14:08 | ECHOF ---
Referral Reason:Aflutter MEASUREMENTS -------- HEIGHT: 172.7 cm WEIGHT: 73.0 kg BP: 103/67 RVIDd: 2.1 cm (< 3.3) IVSd: 1.5 cm (0.6 - 1.1) LVIDd: 4.0 cm (3.9 - 5.3) LVPWd: 1.2 cm (0.6 - 1.1) IVSs: 1.7 cm LVIDs: 2.4 cm LVPWs: 1.4 cm LA Diam: 3.9 cm (2.7 - 3.8) LAESV Index (A-L): 32.81 ml/m Ao Diam: 3.4 cm (2.0 - 3.7) AV Cusp: 1.0 cm (1.5 - 2.6) LA Diam: 4.0 cm (2.7 - 3.8) MV EXCURSION: 15.965 mm (> 18.000) MV EF SLOPE: 163 mm/s (70 - 150) EPSS: 0.3 cm MV E Kai: 0.53 m/s MV DecT: 253 ms MV A Kai: 0.76 m/s MV E/A Ratio: 0.69 RAP: 5.00 mmHg RVSP: 24.94 mmHg FINDINGS -------- The rhythm appears to be atrial flutter. This was a technically adequate study. The left ventricular size is normal. There is moderate concentric left ventricular hypertrophy. O verall left ventricular systolic function is normal with, an EF between 55 - 60 %. The right ventricle is normal in size. The left atrial size is normal. LA is midly dilated 29-33ml/m2. The right atrial size is normal. There is mild aortic valve sclerosis. There is mild aortic regurgitation. Mild mitral annular calcification present. Mild mitral regurgitation is present. Mild tricuspid regurgitation present. There is no evidence of pulmonary hypertension. The right v entricular systolic pressure, as measured by Doppler, is 24.94mmHg. Trace/mild (physiologic) pulmonic regurgitation. The aortic root size is normal. There is no pericardial effusion. CONCLUSIONS -------- 1. The left ventricular size is normal. 2. There is moderate concentric left ventricular hypertrophy. 3. Overall left ventricular systolic function is normal with, an EF between 55 - 60 %. 4. The right ventricle is normal in size. 5. The left atrial size is normal. 6. LA is midly dilated 29-33ml/m2. 7. The right atrial size is normal. 8. There is mild aortic valve sclerosis. 9. There is mild aortic regurgitation. 10. Mild mitral annular calcification present. 11. Mild mitral regurgitation is present. 12. Mild tricuspid regurgitation present. 13. There is no evidence of pulmonary hypertension. 14. The right ventricular systolic pressure, as measured by Doppler, is 24.94mmHg. 15. Trace/mild (physiologic) pulmonic regurgitation. 16. The aortic root size is normal. 17. There is no pericardial effusion. APPLICATIONS CONSULTANT: Clarisa Mcdaniel RDCS
[2018-06-01] MEDS: LORazepam 1 MG TAB PO PRN (21:53)
[2018-06-02 07:06] LABS: Basophils % (A) 0 %; Eosinophils # (A) 0.1 k/uL (0-0.7); Eosinophils % (A) 2 %; HCT 40.1 % (34.0-46.0); HGB 13.2 gm/dL (11.4-16.0); Lymphocytes # (A) 1.4 k/uL (1.0-4.8); Lymphocytes % (A) 20 %; MCH 29.8 pg (25.0-35.0); MCHC 32.9 g/dL (31.0-37.0); MCV 90.6 fL (80.0-100.0); Mean Platelet Volume 6.8; Monocytes # (A) 0.6 k/uL (0-1.0); Monocytes % (A) 9 %; Neutrophils # (A) 4.5 k/uL (1.3-7.7); Neutrophils % (A) 67 %; Platelet Count 304 k/uL (150-450); RBC 4.42 m/uL (3.80-5.40); RDW 12.9 % (11.5-15.5); WBC 6.8 k/uL (3.8-10.6)
[2018-06-02 07:11] LABS: Magnesium 1.8 mg/dL (1.6-2.3)
[2018-06-02] MEDS: SODIUM CHLORIDE 0.9% 1,000 ML IV SCH ×2 (07:31→07:40)
[2018-06-02] MEDS: METOPROLOL TARTRATE 25 MG TAB PO SCH ×3 (07:41→21:43)
[2018-06-02] MEDS: ASPIRIN 81 MG PO SCH (07:41)
[2018-06-02] MEDS: RALOXIFENE 60 MG TAB PO SCH (07:41)
[2018-06-02] MEDS: APIXABAN 2.5 MG TABLET PO SCH ×2 (07:41→19:58)
[2018-06-02] MEDS ORDERED: METOPROLOL TARTRATE 25 MG TAB PO STA (12:26)
--- NOTE | 2018-06-02 13:52 | P.PN ---
Subjective Progress Note Date: 06/02/18 Patient's heart rate is still not well controlled today generally in the 120 range. Cardizem drip was discontinued. Patient denies any shortness of breath or chest pain. Cardiology adjusting her regimen. Objective - Vital Signs Vital signs: Vital Signs Temp 97.8 F 06/02/18 11:14 Pulse 108 H 06/02/18 11:14 Resp 16 06/02/18 11:14 BP 105/63 06/02/18 11:14 Pulse Ox 95 06/02/18 11:14 Intake & Output 06/01/18 06/02/18 06/02/18 18:59 06:59 18:59 Intake Total 230 540 118 Balance 230 540 118 Weight 73.2 kg Intake: Intake, IV Titration 300 Amount Sodium Chloride 0.9% 1, 300 000 ml @ 50 mls/hr IV . Q20H [facility] Rx#:[id number] Oral 230 240 118 Other: Voiding Method Toilet Toilet Toilet # Voids 1 3 - Exam General: The patient is awake and alert, in no distress Eye: there is normal conjunctiva bilaterally. Neck: The neck is supple, there is no JVD. Cardiovascular: Normal S1-S2, no S3-S4, no murmurs. Respiratory: Lungs clear to auscultation bilaterally Gastrointestinal: Abdomen is soft, nontender Musculoskeletal: There is no pedal edema. Neurological:. Speech is normal. Skin: Skin is warm and dry - Labs CBC & Chem 7: 06/02/18 06:28 06/02/18 06:28 Labs: Abnormal Lab Results - Last 24 Hours (Table) 06/01/18 06/02/18 Range/Units 18:39 06:28 Sodium 132 L (137-145) mmol/L Glucose 101 H (74-99) mg/dL Troponin I 0.049 H* (0.000-0.034) ng/mL Assessment and Plan Assessment: 1. Atrial flutter with rapid ventricular response, patient was started on IV Cardizem drip and IV heparin on presentation. Her regimen was adjusted and she is currently on metoprolol and Eliquis for anticoagulation. Thyroid function test normal. Echocardiogram showed preserved ejection fraction and no significant valvular abnormality. Continue telemetry monitoring. 2. Essential hypertension, blood pressure on the lower side. I discontinued hydrochlorothiazide/spironolactone. We will continue to monitor closely. 3. Hypovolemic hyponatremia, may be attributed to diuretics use. Currently discontinued. patient received IV fluid hydration. Sodium level improving slowly. 4 Dizziness, most likely secondary to underlying atrial flutter and possible orthostatic hypotension. Repeat orthostatic blood pressure in the morning 5. Lung nodule. Seen previously on CT. Consider repeat imaging few weeks after discharge Today, I reviewed her medication list and lab work results. Continue current regimen. Patient and her son were updated about her current clinical condition. All of their questions answered to their satisfaction.
--- NOTE | 2018-06-02 15:28 | CDI ---
Last Revision, August 2017 Documentation Clarification Form Date: 06/02/2018 3:00:41 PM From: Ann Marie Ocasio RN, CCDS Admit Date: 05/31/2018 1:54:00 PM Patient Name: Keara Duong Visit Number: [id number] Discharge Date: ATTENTION: The Clinical Documentation Specialists (CDI) and [facility] Coding Staff appreciate your assistance in clarifying documentation. Please respond to the clarification below the line at the bottom and electronically sign. The CDI & [facility] Coding staff will review the response and follow-up if needed. Please note: Queries are made part of the Legal Health Record. If you have any questions, please contact the author of this message via ITS. Deena Campbell Atrial fibrillation is documented in your consult on 06/01/18 History/Risk Factors: Hypertension, Dysrhythmia Clinical Indicators: Present with generalized weakness and complaints of palpitation in her chest. EKG showed typical atrial flutter with 2:1 AV conduction. Repeat EKG shows atrial fibrillation with moderately rapid ventricular response. Troponin 0.048, 0.037, EKG/telemetry: Atrial Fibrillation with rapid ventricular response @ 104 bpm Treatment: Cardizem drip (DC) Heparin drip Monitor/Circulation Man Labs Eliquis PO Lopressor PO In your professional opinion, can you please clarify the type of atrial fibrillation, if known? Chronic/Permanent Paroxysmal Persistent Other, please specify Unable to determine Please continue to document in your progress notes and discharge summary in order to capture severity of illness and risk of mortality. Include clinical findings that support your diagnosis. MTDD
[2018-06-02] MEDS: HYDROcodone/APAP 7.5-325MG 1 EACH TAB PO PRN (19:58)
[2018-06-02] MEDS: LORazepam 1 MG TAB PO PRN (21:44)
[2018-06-03 06:00] LABS: Basophils % (A) 0 %; Eosinophils # (A) 0.2 k/uL (0-0.7); Eosinophils % (A) 3 %; HCT 40.9 % (34.0-46.0); HGB 13.2 gm/dL (11.4-16.0); Lymphocytes # (A) 1.4 k/uL (1.0-4.8); Lymphocytes % (A) 21 %; MCH 29.8 pg (25.0-35.0); MCHC 32.3 g/dL (31.0-37.0); MCV 92.1 fL (80.0-100.0); Mean Platelet Volume 6.8; Monocytes # (A) 0.6 k/uL (0-1.0); Monocytes % (A) 8 %; Neutrophils # (A) 4.6 k/uL (1.3-7.7); Neutrophils % (A) 67 %; Platelet Count 295 k/uL (150-450); RBC 4.44 m/uL (3.80-5.40); RDW 13.1 % (11.5-15.5); WBC 6.8 k/uL (3.8-10.6)
[2018-06-03 06:12] LABS: Calcium 9.2 mg/dL (8.4-10.2); Magnesium 1.9 mg/dL (1.6-2.3)
[2018-06-03] MEDS: ASPIRIN 81 MG PO SCH (08:13)
[2018-06-03] MEDS: RALOXIFENE 60 MG TAB PO SCH (08:13)
[2018-06-03] MEDS: APIXABAN 2.5 MG TABLET PO SCH ×2 (08:13→20:44)
[2018-06-03] MEDS: HYDROcodone/APAP 7.5-325MG 1 EACH TAB PO PRN (08:18)
[2018-06-03] MEDS ORDERED: METOPROLOL TARTRATE 50 MG TAB PO SCH (09:00)
--- NOTE | 2018-06-03 10:41 | P.PN ---
Subjective Patient is doing well this morning. She denies any dizziness or postoral dizziness, chest pain or shortness of breath. She is still in atrial fibrillation with occasional documented spikes with heart rate in high 90s although the heart rate is been better this morning. She says she's been up and ambulating without any significant difficulties. She's been eating well and not having any particular complaints at this moment REVIEW OF SYSTEMS: CONSTITUTIONAL: No fever or chills HEENT: No changes in vision or voice CARDIOVASCULAR: no chest pain or abnormal heart beats, or any swelling in ankles or feet. RESPIRATORY: No wheezing or coughing. GASTROINTESTINAL: No abdominal pain, no nausea no vomiting no constipation or diarrhea GENITOURINARY: no any urinary urgency, frequency or burning, and there has been no blood in her urine. no flank pain. MUSCULOSKELETAL: She notes full range of motion of all her joints without pain or swelling. NEUROLOGICAL: , no headache. no vision changes, or fainting. No numbness or tingling. Objective - Vital Signs Vital signs: Vital Signs Temp 96.1 F L 06/03/18 08:00 Pulse 62 06/03/18 08:00 Resp 18 06/03/18 08:00 BP 108/61 06/03/18 08:00 Pulse Ox 97 06/03/18 08:00 Intake & Output 06/02/18 06/03/18 06/03/18 18:59 06:59 18:59 Intake Total 688 240 Output Total 380 Balance 688 -380 240 Weight 73.6 kg Intake: Intake, IV Titration 50 Amount Sodium Chloride 0.9% 1, 50 000 ml @ 50 mls/hr IV . Q20H [facility] Rx#:[id number] Oral 638 240 Output: Urine 380 Other: Voiding Method Toilet Toilet Toilet # Voids 1 - Exam Vital Signs: I have reviewed the vital signs. GENERAL: Well-nourished, Well-developed , no apparent distress, cooperative Eyes: PERRL, extraoculry movements intact, clear conjunctiva Head: : Atraumatic external nose and ears, oropharyngeal mucosa is moist without lesions or exudates Neck: Symmetric, trachea midline, No thyromegaly, no masses or neck vain pulsation, no neck rigidity CVS: +S1/S2, No murmurs or gallops. Heart rhythm is irregularly irregular but not tachycardic and bradycardic RESP: Unlabored respiratory effort. Clear to auscultation bilaterally. Abdomen: Bowel sounds present in all 4 quadrants, Soft to palpation, Nontender/ Nondistended, No hepatosplenomegaly, no hernias or masses, no CVA tnderness Musculoskeletal: Extremities w/o deformity, No cyanosis or clubbing, no joint swelling Skin: Warm, Dry. 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 Atrial fibrillation with rapid ventricular response symptomatic Status post Cardizem and subsequently Cardizem was discontinued and she was switched to metoprolol 3 times a day She's been tolerating this well based on the patient reports and we will continue to monitor any post dural symptoms or hypotension Patient has elevated CADVASC score and has been started on anticoagulation with Eliquis which she has been tolerating well without any clinical signs of bleeding We will check her hemoglobin in the morning Home blood pressure medications have been discontinued to allow metoprolol and we will continue with this 2. Symptomatic hyponatremia, hypovolemic in nature and due to use of thiazide diuretics This improved with discontinuation of diuretics and light IV hydration We will completely discontinue her diuretics and anticipate this will stay at the time of discharge like this Encourage protein intake 3. Anxiety chronic musculoskeletal pain Patient been chronically on lorazepam as needed on bedtime this was continued and also on her home pain medications continue the when necessary basis tolerating this well 4. Lung nodule Patient is a former smoker We will kindly ask patient to follow-up this an outpatient basis with her PCP and likely obtain further imaging with appropriate computed tomography scan
--- NOTE | 2018-06-03 12:52 | P.PN ---
Subjective Progress Note Date: 06/03/18 This is a pleasant 88-year-old female with past medical history of hypertension, arrhythmia, for which she was on Cardizem 120 at home, she was directed by her primary care physician to take a half a pill in the morning and a half a pill in the evening and that if she felt herself go into a rapid irregular rhythm she was okay to take an additional dose. For approximately 3 days the patient has been experiencing symptoms of weakness and generalized lightheadedness, she also states that she's been having occasional episodes where she feels dull heaviness in her chest. She does also state that when she gets up too fast she has some mild dizziness. Because of the symptoms primarily of weakness she went to primary care physician's office, not her regular doctor he is currently on vacation, and EKG was performed there, patient was found to be in rapid atrial flutter with a heart rate in the 150s to 160s and patient was advised to come to the hospital for further evaluation. Patient denied at that time feeling any palpitations or heart racing, no chest discomfort at that time. Initial EKG on presentation here showed typical atrial flutter with 2-1 AV conduction. Chest x-ray showed intermediate lung nodule as described. Substernal nodular density which is likely related to previously described nodule from prior CAT scan. Blood pressure on arrival here 105/70 with a heart rate in the 150s, 90% on room air, afebrile. Blood pressure this morning 130/80 with a heart rate in the 90s, 98% on room air. Repeat EKG shows atrial fibrillation with moderately rapid ventricular response. White blood cell count on admission 11.5, 7.4 this morning, hemoglobin 15.2 on admission, 13.3 this morning. Platelet count 310. Sodium on admission 128, 130 this morning. BUN 18, creatinine 0.9, magnesium 1.6. Potassium 3.7. Troponin 0.048, 0.073. TSH 1.3. At the time of my examination this morning, patient feels well, no complaints. 06/03/2018 Patient was seen and examined this morning, continues to be in atrial fibrillation, heart rate in the 70s. Earlier this morning her heart rate was up in the 120 range, as well as it through the night, beta lily was increased to 50 mg one tablet by mouth 3 times a day. Objective - Vital Signs Vital signs: Vital Signs Temp 97.4 F L 06/03/18 12:00 Pulse 88 06/03/18 12:00 Resp 18 06/03/18 12:00 BP 118/74 06/03/18 12:00 Pulse Ox 98 06/03/18 12:00 Intake & Output 06/02/18 06/03/18 06/03/18 18:59 06:59 18:59 Intake Total 688 240 Output Total 380 Balance 688 -380 240 Weight 73.6 kg Intake: Intake, IV Titration 50 Amount Sodium Chloride 0.9% 1, 50 000 ml @ 50 mls/hr IV . Q20H DAXA Rx#:[id number] Oral 638 240 Output: Urine 380 Other: Voiding Method Toilet Toilet Toilet # Voids 1 - Exam PHYSICAL EXAMINATION: GENERAL: 88-year-old female in no acute distress at the time of my examination HEENT: Head is atraumatic, normocephalic. Pupils equal, round. Sclera anicteric. Conjunctiva are clear. Mucous membranes of the mouth are moist. Neck is supple. There is no elevated jugular venous pressure. No carotid bruit is heard. HEART EXAMINATION: S1 and S2 irregularly irregular systolic murmur is heard. CHEST EXAMINATION: Lungs are clear to auscultation and precussion. No chest wall tenderness is noted on palpation or with deep breathing. ABDOMEN: Soft, nontender. Bowel sounds are heard. No organomegaly noted. EXTREMITIES: 2+ peripheral pulses with no evidence of peripheral edema and no calf tenderness noted. Mild discoloration noted in bilateral lower extremities NEUROLOGIC patient is awake, alert and oriented X3. - Labs CBC & Chem 7: 06/03/18 05:31 06/03/18 05:31 Labs: Abnormal Lab Results - Last 24 Hours (Table) 06/03/18 Range/Units 05:31 Sodium 135 L (137-145) mmol/L Glucose 100 H (74-99) mg/dL Assessment and Plan Plan: Assessment and plan #1 atrial flutter with rapid ventricular response currently in persistent atrial fibrillation with moderately rapid ventricular rate. TSH is normal #2 history of atrial arrhythmia, on Cardizem at home #3 hypertension #4 hypomagnesemia Plan From cardiology's perspective, the patient has been encouraged to be up ambulating in the hallway, if heart rate remains stableshe may be able to be discharged on current medications. FRANCISCO JAVIER Caldwell will see her in the office post discharge and consider cardioversion electively as an outpatient. DNP note has been reviewed, I agree with a documented findings and plan of care. Patient was seen and examined.
[2018-06-03] MEDS: METOPROLOL TARTRATE 50 MG TAB PO SCH ×2 (15:45→20:44)
[2018-06-03] MEDS: LORazepam 1 MG TAB PO PRN (20:44)
[2018-06-04] MEDS: HYDROcodone/APAP 7.5-325MG 1 EACH TAB PO PRN (04:38)
[2018-06-04 07:49] LABS: Basophils % (A) 0 %; Eosinophils # (A) 0.2 k/uL (0-0.7); Eosinophils % (A) 2 %; HCT 43.4 % (34.0-46.0); HGB 14.5 gm/dL (11.4-16.0); Lymphocytes # (A) 1.8 k/uL (1.0-4.8); Lymphocytes % (A) 19 %; MCH 30.4 pg (25.0-35.0); MCHC 33.4 g/dL (31.0-37.0); Monocytes # (A) 0.6 k/uL (0-1.0); Monocytes % (A) 7 %; Neutrophils # (A) 6.6 k/uL (1.3-7.7); Neutrophils % (A) 70 %; Platelet Count 302 k/uL (150-450); RBC 4.77 m/uL (3.80-5.40); WBC 9.5 k/uL (3.8-10.6)
[2018-06-04 07:58] LABS: Calcium 9.4 mg/dL (8.4-10.2); Potassium 5.2 mmol/L (3.5-5.1)
[2018-06-04] MEDS: ASPIRIN 81 MG PO SCH (08:09)
[2018-06-04] MEDS: RALOXIFENE 60 MG TAB PO SCH (08:09)
[2018-06-04] MEDS: APIXABAN 2.5 MG TABLET PO SCH ×2 (08:09→21:25)
[2018-06-04] MEDS: METOPROLOL TARTRATE 50 MG TAB PO SCH ×3 (08:09→21:25)
--- NOTE | 2018-06-04 10:52 | P.PN ---
Subjective Progress Note Date: 06/04/18 This is a pleasant 88-year-old female with past medical history of hypertension, arrhythmia, for which she was on Cardizem 120 at home, she was directed by her primary care physician to take a half a pill in the morning and a half a pill in the evening and that if she felt herself go into a rapid irregular rhythm she was okay to take an additional dose. For approximately 3 days the patient has been experiencing symptoms of weakness and generalized lightheadedness, she also states that she's been having occasional episodes where she feels dull heaviness in her chest. She does also state that when she gets up too fast she has some mild dizziness. Because of the symptoms primarily of weakness she went to primary care physician's office, not her regular doctor he is currently on vacation, and EKG was performed there, patient was found to be in rapid atrial flutter with a heart rate in the 150s to 160s and patient was advised to come to the hospital for further evaluation. Patient denied at that time feeling any palpitations or heart racing, no chest discomfort at that time. Initial EKG on presentation here showed typical atrial flutter with 2-1 AV conduction. Chest x-ray showed intermediate lung nodule as described. Substernal nodular density which is likely related to previously described nodule from prior CAT scan. Blood pressure on arrival here 105/70 with a heart rate in the 150s, 90% on room air, afebrile. Blood pressure this morning 130/80 with a heart rate in the 90s, 98% on room air. Repeat EKG shows atrial fibrillation with moderately rapid ventricular response. White blood cell count on admission 11.5, 7.4 this morning, hemoglobin 15.2 on admission, 13.3 this morning. Platelet count 310. Sodium on admission 128, 130 this morning. BUN 18, creatinine 0.9, magnesium 1.6. Potassium 3.7. Troponin 0.048, 0.073. TSH 1.3. At the time of my examination this morning, patient feels well, no complaints. 06/03/2018 Patient was seen and examined this morning, continues to be in atrial fibrillation, heart rate in the 70s. Earlier this morning her heart rate was up in the 120 range, as well as it through the night, beta lily was increased to 50 mg one tablet by mouth 3 times a day. 06/04/2018 Patient was seen and examined this morning, overall feeling well she just states that she feels weak because she's been in bed for so many days. Continues to be in A. fib, her rate is under adequate control. From cardiology' s perspective, she may be able to be discharged home to follow-up in the office with Dr. Travis Caldwell. Objective - Vital Signs Vital signs: Vital Signs Temp 96.9 F L 06/04/18 08:00 Pulse 96 06/04/18 08:00 Resp 18 06/04/18 08:00 BP 124/66 06/04/18 08:00 Pulse Ox 96 06/04/18 08:00 Intake & Output 06/03/18 06/04/18 06/04/18 18:59 06:59 18:59 Intake Total 740 137 240 Balance 740 137 240 Weight 73.2 kg Intake: Oral 740 137 240 Other: Voiding Method Toilet Toilet Toilet # Voids 3 1 - Exam PHYSICAL EXAMINATION: GENERAL: 88-year-old female in no acute distress at the time of my examination HEENT: Head is atraumatic, normocephalic. Pupils equal, round. Sclera anicteric. Conjunctiva are clear. Mucous membranes of the mouth are moist. Neck is supple. There is no elevated jugular venous pressure. No carotid bruit is heard. HEART EXAMINATION: S1 and S2 irregularly irregular systolic murmur is heard. CHEST EXAMINATION: Lungs are clear to auscultation and precussion. No chest wall tenderness is noted on palpation or with deep breathing. ABDOMEN: Soft, nontender. Bowel sounds are heard. No organomegaly noted. EXTREMITIES: 2+ peripheral pulses with no evidence of peripheral edema and no calf tenderness noted. Mild discoloration noted in bilateral lower extremities NEUROLOGIC patient is awake, alert and oriented X3. - Labs CBC & Chem 7: 06/04/18 06:56 06/04/18 06:56 Labs: Abnormal Lab Results - Last 24 Hours (Table) 06/04/18 Range/Units 06:56 Sodium 136 L (137-145) mmol/L Potassium 5.2 H (3.5-5.1) mmol/L BUN 21 H (7-17) mg/dL Glucose 105 H (74-99) mg/dL Assessment and Plan Plan: Assessment and plan #1 atrial flutter with rapid ventricular response currently in persistent atrial fibrillation with moderately rapid ventricular rate. TSH is normal #2 history of atrial arrhythmia, on Cardizem at home #3 hypertension #4 hypomagnesemia Plan From cardiology's perspective, patient may be able to be discharged home today. We'll make her a follow-up appointment to see Dr. FRANCISCO JAVIER Caldwell in the office post discharge. DNP note has been reviewed, I agree with a documented findings and plan of care. Patient was seen and examined.
--- NOTE | 2018-06-04 14:18 | P.PN ---
Subjective Patient is up in chair eating lunch. She was doing quite well overnight and this morning being in normal sinus rhythm but unfortunately she is back into A. fib with RVR with heart rate into 130s. She describes feeling some palpitations but no chest pain or shortness of breath and no dizziness. REVIEW OF SYSTEMS: CONSTITUTIONAL: No fever or chills HEENT: No changes in vision or voice RESPIRATORY: No wheezing or coughing. GASTROINTESTINAL: No abdominal pain, no nausea no vomiting no constipation or diarrhea GENITOURINARY: no any urinary urgency, frequency or burning, and there has been no blood in her urine. no flank pain. MUSCULOSKELETAL: She notes full range of motion of all her joints without pain or swelling. NEUROLOGICAL: , no headache. no vision changes, or fainting. No numbness or tingling. Objective - Vital Signs Vital signs: Vital Signs Temp 97.1 F L 06/04/18 12:00 Pulse 114 H 06/04/18 12:00 Resp 18 06/04/18 12:00 BP 104/64 06/04/18 12:00 Pulse Ox 100 06/04/18 12:00 Intake & Output 06/03/18 06/04/18 06/04/18 18:59 06:59 18:59 Intake Total 740 137 360 Balance 740 137 360 Weight 73.2 kg Intake: Oral 740 137 360 Other: Voiding Method Toilet Toilet Toilet # Voids 3 1 2 - Exam Vital Signs: I have reviewed the vital signs. GENERAL: Well-nourished, Well-developed , no apparent distress, cooperative Eyes: PERRL, extraoculry movements intact, clear conjunctiva Head: : Atraumatic external nose and ears, oropharyngeal mucosa is moist without lesions or exudates Neck: Symmetric, trachea midline, No thyromegaly, no masses or neck vain pulsation, no neck rigidity CVS: Tachycardic and irregular S1-S2 RESP: Unlabored respiratory effort. Clear to auscultation bilaterally. Abdomen: Bowel sounds present in all 4 quadrants, Soft to palpation, Nontender/ Nondistended, No hepatosplenomegaly, no hernias or masses, no CVA tnderness Musculoskeletal: Extremities w/o deformity, No cyanosis or clubbing, no joint swelling Skin: Warm, Dry. 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 Atrial fibrillation with rapid ventricular response symptomatic Status post Cardizem and subsequently Cardizem was discontinued and she was switched to metoprolol 3 times a day She's been tolerating this well No hypotension orthostatic dizziness. Unfortunately she's back to A. fib with RVR Awaiting further cardiology input Patient has elevated CADVASC score and has been started on anticoagulation with Eliquis which she has been tolerating well without any clinical signs of bleeding Home blood pressure medications have been discontinued to allow metoprolol and we will continue with this 2. Symptomatic hyponatremia, hypovolemic in nature and due to use of thiazide diuretics This improved with discontinuation of diuretics and light IV hydration We will completely discontinue her diuretics and anticipate this will stay at the time of discharge like this Encourage protein intake 3. Anxiety chronic musculoskeletal pain Patient been chronically on lorazepam as needed on bedtime this was continued and also on her home pain medications continue the when necessary basis tolerating this well 4. Lung nodule Patient is a former smoker We will kindly ask patient to follow-up this an outpatient basis with her PCP and likely obtain further imaging with appropriate computed tomography scan
[2018-06-04] MEDS: LORazepam 1 MG TAB PO PRN (21:25)
[2018-06-05 05:56] LABS: Basophils % (A) 0 %; Eosinophils # (A) 0.2 k/uL (0-0.7); Eosinophils % (A) 2 %; HCT 38.8 % (34.0-46.0); HGB 13.1 gm/dL (11.4-16.0); Lymphocytes # (A) 1.7 k/uL (1.0-4.8); Lymphocytes % (A) 20 %; MCH 30.7 pg (25.0-35.0); MCHC 33.7 g/dL (31.0-37.0); MCV 91.2 fL (80.0-100.0); Mean Platelet Volume 7.1; Monocytes # (A) 0.6 k/uL (0-1.0); Monocytes % (A) 7 %; Neutrophils # (A) 6.2 k/uL (1.3-7.7); Neutrophils % (A) 70 %; Platelet Count 294 k/uL (150-450); RBC 4.25 m/uL (3.80-5.40); RDW 13.3 % (11.5-15.5); WBC 8.9 k/uL (3.8-10.6)
[2018-06-05 06:10] LABS: Calcium 9.1 mg/dL (8.4-10.2); Potassium 4.6 mmol/L (3.5-5.1)
[2018-06-05] MEDS: APIXABAN 2.5 MG TABLET PO SCH ×2 (07:44→20:28)
[2018-06-05] MEDS: METOPROLOL TARTRATE 50 MG TAB PO SCH ×3 (07:44→20:28)
[2018-06-05] MEDS: RALOXIFENE 60 MG TAB PO SCH (07:45)
[2018-06-05] MEDS: HYDROcodone/APAP 7.5-325MG 1 EACH TAB PO PRN ×2 (07:47→20:27)
--- NOTE | 2018-06-05 13:36 | P.PN ---
Subjective Patient had an uneventful evening and night but this morning she is back into A. fib with RVR this morning 140 currently after receiving oral Lopressor she is down to 100 210. Asymptomatic no shortness of breath no chest pain no dizziness no palpitations. She is currently on Lopressor 50 mg 3 times a day and Eliquis. Her daughter is in the room and we had a torn discussion went over all the plan of care and all the findings. REVIEW OF SYSTEMS: CONSTITUTIONAL: No fever or chills HEENT: No changes in vision or voice CARDIOVASCULAR: no chest pain or any swelling in ankles or feet. RESPIRATORY: No wheezing or coughing. GASTROINTESTINAL: No abdominal pain, no nausea no vomiting no constipation or diarrhea GENITOURINARY: no any urinary urgency, frequency or burning, and there has been no blood in her urine. no flank pain. MUSCULOSKELETAL: She notes full range of motion of all her joints without pain or swelling. NEUROLOGICAL: , no headache. no vision changes, or fainting. No numbness or tingling. Objective - Vital Signs Vital signs: Vital Signs Temp 96.8 F L 06/05/18 12:00 Pulse 113 H 06/05/18 12:00 Resp 18 06/05/18 12:00 BP 92/68 06/05/18 12:00 Pulse Ox 98 06/05/18 12:00 Intake & Output 06/04/18 06/05/18 06/05/18 18:59 06:59 18:59 Intake Total 480 620 360 Balance 480 620 360 Weight 73.4 kg Intake: Oral 480 620 360 Other: Voiding Method Toilet Toilet Toilet # Voids 1 2 1 - Exam Vital Signs: I have reviewed the vital signs. GENERAL: Well-nourished, Well-developed , no apparent distress, cooperative Eyes: PERRL, extraoculry movements intact, clear conjunctiva Head: : Atraumatic external nose and ears, oropharyngeal mucosa is moist without lesions or exudates Neck: Symmetric, trachea midline, No thyromegaly, no masses or neck vain pulsation, no neck rigidity; scar from surgery CVS: Tachycardic around 100 to 110 and irregular S1-S2 RESP: Unlabored respiratory effort. Clear to auscultation bilaterally. Abdomen: Bowel sounds present in all 4 quadrants, Soft to palpation, Nontender/ Nondistended, No hepatosplenomegaly, no hernias or masses, no CVA tnderness Musculoskeletal: Extremities w/o deformity, No cyanosis or clubbing, no joint swelling Skin: Warm, Dry. No rashes or lesions Psych: Awake, Alert, & Oriented (AAO) x3 Appropriate mood and affect - Labs CBC & Chem 7: 06/05/18 05:45 06/05/18 05:45 Labs: Abnormal Lab Results - Last 24 Hours (Table) 06/05/18 Range/Units 05:45 BUN 23 H (7-17) mg/dL Glucose 107 H (74-99) mg/dL Assessment and Plan Plan: 1. Atrial fibrillation with rapid ventricular response symptomatic Status post Cardizem and subsequently Cardizem was discontinued and she was switched to metoprolol 3 times a day She's been tolerating this well No hypotension orthostatic dizziness. She's been having early-morning tachycardias that responded well to Lopressor Awaiting further cardiology input Patient has elevated CADVASC score and has been started on anticoagulation with Eliquis which she has been tolerating well without any clinical signs of bleeding Home blood pressure medications have been discontinued to allow metoprolol and we will continue with this 2. Symptomatic hyponatremia, hypovolemic in nature and due to use of thiazide diuretics This improved with discontinuation of diuretics and light IV hydration We will completely discontinue her diuretics and anticipate this will stay at the time of discharge like this Encourage protein intake 3. Anxiety chronic musculoskeletal pain Patient been chronically on lorazepam as needed on bedtime this was continued and also on her home pain medications continue the when necessary basis tolerating this well 4. Lung nodule Patient is a former smoker We will kindly ask patient to follow-up this an outpatient basis with her PCP and likely obtain further imaging with appropriate computed tomography scan
[2018-06-05] MEDS: LORazepam 1 MG TAB PO PRN (21:16)
[2018-06-06] MEDS: HYDROcodone/APAP 7.5-325MG 1 EACH TAB PO PRN (04:13)
[2018-06-06 06:50] LABS: Basophils % (A) 0 %; Eosinophils # (A) 0.2 k/uL (0-0.7); Eosinophils % (A) 2 %; HCT 39.3 % (34.0-46.0); HGB 12.9 gm/dL (11.4-16.0); Lymphocytes # (A) 1.6 k/uL (1.0-4.8); Lymphocytes % (A) 21 %; MCH 30.5 pg (25.0-35.0); MCHC 32.9 g/dL (31.0-37.0); MCV 92.5 fL (80.0-100.0); Monocytes # (A) 0.6 k/uL (0-1.0); Monocytes % (A) 8 %; Neutrophils # (A) 5.2 k/uL (1.3-7.7); Neutrophils % (A) 68 %; Platelet Count 270 k/uL (150-450); RBC 4.24 m/uL (3.80-5.40); RDW 13.3 % (11.5-15.5); WBC 7.7 k/uL (3.8-10.6)
[2018-06-06 07:14] LABS: Calcium 9.1 mg/dL (8.4-10.2); Potassium 4.7 mmol/L (3.5-5.1)
[2018-06-06] MEDS: RALOXIFENE 60 MG TAB PO SCH (09:07)
[2018-06-06] MEDS: APIXABAN 2.5 MG TABLET PO SCH ×2 (09:08→20:52)
[2018-06-06] MEDS: METOPROLOL TARTRATE 50 MG TAB PO SCH ×3 (09:12→20:52)
--- NOTE | 2018-06-06 15:32 | P.PN ---
Subjective Progress Note Date: 06/06/18 The patient was seen and examined the bedside. The patient was in good spirits today and noted that she had an episode of palpitations, with shortness of breath, and dizziness at 3 AM which woke her up from sleep. The episode lasted until 6 AM, and then resolved spontaneously and did not recur. She otherwise denied fever, chills, chest pain, shortness of breath, nausea, vomiting, diarrhea, constipation, or dizziness. Objective - Vital Signs Vital signs: Vital Signs Temp 97.0 F L 06/06/18 12:00 Pulse 113 H 06/06/18 12:00 Resp 18 06/06/18 12:00 BP 112/69 06/06/18 12:00 Pulse Ox 95 06/06/18 12:00 Intake & Output 06/05/18 06/06/18 06/06/18 18:59 06:59 18:59 Intake Total 480 750 240 Balance 480 750 240 Weight 73.8 kg Intake: Oral 480 750 240 Other: Voiding Method Toilet Toilet Toilet # Voids 1 1 - Exam General: Non-toxic, in no acute distress HEENT: NC/AT, anicteric sclerae, moist conjunctiva, no lid-lag, PERRLA, oropharynx clear, no erythema, exudates Cardiovascular: S1/S2 wnl, irregularly irregular, no murmurs appreciated Lungs: Clear to auscultation, normal respiratory effort, no accessory muscle use Abdominal: Soft, nontender, non-distended, no guarding, rebound, or rigidity, normoactive bowel sounds Skin: Warm, dry Extremities: No edema or contractures Psychiatric: Alert and oriented to person, place and time, appropriate affect, Intact judgment Neuro: CN II-XII grossly intact, no focal motor deficits - Labs CBC & Chem 7: 06/06/18 06:25 06/06/18 06:25 Labs: Abnormal Lab Results - Last 24 Hours (Table) 06/06/18 Range/Units 06:25 Carbon Dioxide 20 L (22-30) mmol/L BUN 22 H (7-17) mg/dL Glucose 103 H (74-99) mg/dL Assessment and Plan Plan: Aflutter w/ RVR - Patient continues to have runs of RVR into 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
[2018-06-06] MEDS: LORazepam 1 MG TAB PO PRN (20:53)
[2018-06-07 06:42] LABS: Basophils % (A) 0 %; Eosinophils # (A) 0.2 k/uL (0-0.7); Eosinophils % (A) 2 %; HCT 38.8 % (34.0-46.0); HGB 12.7 gm/dL (11.4-16.0); Lymphocytes # (A) 1.7 k/uL (1.0-4.8); Lymphocytes % (A) 20 %; MCH 29.8 pg (25.0-35.0); MCHC 32.8 g/dL (31.0-37.0); Mean Platelet Volume 7.7; Monocytes # (A) 0.5 k/uL (0-1.0); Monocytes % (A) 6 %; Neutrophils # (A) 5.7 k/uL (1.3-7.7); Neutrophils % (A) 69 %; Platelet Count 291 k/uL (150-450); RBC 4.26 m/uL (3.80-5.40); RDW 13.4 % (11.5-15.5); WBC 8.3 k/uL (3.8-10.6)
[2018-06-07 06:51] LABS: Calcium 9.2 mg/dL (8.4-10.2); Potassium 4.8 mmol/L (3.5-5.1)
[2018-06-07] MEDS: HYDROcodone/APAP 7.5-325MG 1 EACH TAB PO PRN (08:48)
[2018-06-07] MEDS: METOPROLOL TARTRATE 50 MG TAB PO SCH ×2 (09:08→20:03)
[2018-06-07] MEDS: APIXABAN 2.5 MG TABLET PO SCH ×2 (09:08→20:03)
[2018-06-07] MEDS: RALOXIFENE 60 MG TAB PO SCH (09:08)
[2018-06-07] MEDS ORDERED: DEXTROSE 5% IN WATER 100 ML with AMIODARONE 150 MG IV ONE (11:05)
[2018-06-07] MEDS: AMIODARONE 450 MG in DEXTROSE 5% IN WATER 250 ML IV SCH ×4 (11:41→21:10)
[2018-06-07] MEDS: SODIUM CHLORIDE 0.9% 1,000 ML IV SCH (11:46)
--- NOTE | 2018-06-07 12:00 | P.PN ---
Subjective Patient interviewed and examined. Seen by Dr. Dailey today and requested reevaluation for atrial fibrillation Currently in atrial fibrillation/rapid atrial tachycardia with RVR that has been difficult to rate control with metoprolol 100 mg twice daily. On anticoagulation since May The patient continues to be short of breath feels that her heart is beating rapidly and is symptomatic Suggest Continue anticoagulation, start IV amiodarone, D and electrical cardioversion during this admission and switched to by mouth amiodarone If she has atrial flutter once again she should undergo an EP study and ablation for this Lifelong anticoagulation Objective - Vital Signs Vital signs: Vital Signs Temp 97.5 F L 06/07/18 08:50 Pulse 84 06/07/18 11:46 Resp 18 06/07/18 11:46 BP 105/68 06/07/18 11:46 Pulse Ox 96 06/07/18 11:46 Intake & Output 06/06/18 06/07/18 06/07/18 18:59 06:59 18:59 Intake Total 582 550 360 Balance 582 550 360 Weight 73.6 kg Intake: Oral 582 550 360 Other: Voiding Method Toilet Toilet Toilet # Voids 2 2 - Labs CBC & Chem 7: 06/07/18 05:53 06/07/18 05:53 Labs: Abnormal Lab Results - Last 24 Hours (Table) 06/07/18 Range/Units 05:53 Chloride 108 H (98-107) mmol/L Carbon Dioxide 19 L (22-30) mmol/L BUN 22 H (7-17) mg/dL
[2018-06-07 14:12] VITALS: BMI 24.6
[2018-06-07] MEDS: MIRTAZAPINE 15 MG TAB PO SCH (20:03)
[2018-06-07] MEDS: LORazepam 1 MG TAB PO PRN (20:43)
--- NOTE | 2018-06-07 21:25 | PN ---
PROGRESS NOTE ATTENDING PHYSICIAN: Dr. Graciela Dailey. CHIEF COMPLAINT: Re-evaluation. HISTORY OF PRESENT ILLNESS: This 88-year-old female was admitted to the hospital with atrial fibrillation, rapid ventricular rate. The patient is noted to have adequate thyroid status and no dilated cardiomyopathy. The patient continues to be in atrial fibrillation. No evidence of any other infective process. REVIEW OF SYSTEMS: NEURO: Denies any headaches, dizziness. PSYCH: Some depression and grief. CARDIAC: No chest pain, angina, palpitations. CARDIAC: No chest pain, angina. Some palpitations off and on. No shortness of breath. GI: No nausea, vomiting, abdominal pain, diarrhea, constipation, hematochezia, melena. : No symptoms of dysuria, hematuria, urgency, frequency. EXTREMITIES: Denies pain, edema. CONSTITUTIONAL: No fever or chills. PHYSICAL EXAMINATION: Pleasant female in no distress. Vital signs reveal temperature 97.5, pulse 123, respirations 18, blood pressure 94/74, pulse ox of 98% on room air. HEENT: Normocephalic. NECK: Supple. No JVD. CHEST: Clear to auscultation, percussion. CARDIAC: Normal S1, S2 with no gallops. Irregularly, irregular rhythm. Systolic murmur 2/6 left sternal border. ABDOMEN: Soft. No palpable masses. Bowel sounds normal. No organomegaly. No abdominal bruits. Extremities reveal no edema. Good pulses both upper and lower extremities. Neurologically, awake, alert, oriented with well-coordinated movements. The patient is depressed, did cry. Current depression per family relating to spouse's recent demise. LABORATORY ASSESSMENT: Electrolytes which are normal, CO2 currently of 19, BUN 22, creatinine 0.83. ASSESSMENT: 1. Atrial fibrillation with rapid ventricular rate. 2. History of hypertension. 3. Chronic back pain. 4. Depression. PLAN: Continue present medical regimen. I have contacted the mining consultant to take further steps, as the patient's present management is not adequate to control her heart rate. Possibility of using amiodarone. The patient condition otherwise is guarded. Prognosis guarded. We will start the patient on some Remeron to see if that will help with her depression. MMODL / IJN: [id number] /
[2018-06-08] MEDS: APIXABAN 2.5 MG TABLET PO SCH ×2 (06:34→20:44)
[2018-06-08] MEDS: RALOXIFENE 60 MG TAB PO SCH (06:34)
[2018-06-08 08:09] LABS: Basophils % (A) 0 %; Eosinophils # (A) 0.2 k/uL (0-0.7); Eosinophils % (A) 2 %; HCT 40.6 % (34.0-46.0); HGB 13.4 gm/dL (11.4-16.0); Lymphocytes # (A) 1.5 k/uL (1.0-4.8); Lymphocytes % (A) 16 %; MCH 30.2 pg (25.0-35.0); MCHC 32.9 g/dL (31.0-37.0); MCV 91.8 fL (80.0-100.0); Mean Platelet Volume 7.8; Monocytes # (A) 0.7 k/uL (0-1.0); Monocytes % (A) 8 %; Neutrophils # (A) 6.6 k/uL (1.3-7.7); Neutrophils % (A) 73 %; Platelet Count 304 k/uL (150-450); RBC 4.42 m/uL (3.80-5.40); RDW 13.4 % (11.5-15.5); WBC 9.1 k/uL (3.8-10.6)
[2018-06-08 08:19] LABS: Calcium 9.4 mg/dL (8.4-10.2); Potassium 4.7 mmol/L (3.5-5.1)
--- NOTE | 2018-06-08 15:06 | P.PN ---
Subjective Progress Note Date: 06/08/18 This is a pleasant 88-year-old female with past medical history of hypertension, arrhythmia, for which she was on Cardizem 120 at home, she was directed by her primary care physician to take a half a pill in the morning and a half a pill in the evening and that if she felt herself go into a rapid irregular rhythm she was okay to take an additional dose. For approximately 3 days the patient has been experiencing symptoms of weakness and generalized lightheadedness, she also states that she's been having occasional episodes where she feels dull heaviness in her chest. She does also state that when she gets up too fast she has some mild dizziness. Because of the symptoms primarily of weakness she went to primary care physician's office, not her regular doctor he is currently on vacation, and EKG was performed there, patient was found to be in rapid atrial flutter with a heart rate in the 150s to 160s and patient was advised to come to the hospital for further evaluation. Patient denied at that time feeling any palpitations or heart racing, no chest discomfort at that time. Initial EKG on presentation here showed typical atrial flutter with 2-1 AV conduction. Chest x-ray showed intermediate lung nodule as described. Substernal nodular density which is likely related to previously described nodule from prior CAT scan. Blood pressure on arrival here 105/70 with a heart rate in the 150s, 90% on room air, afebrile. Blood pressure this morning 130/80 with a heart rate in the 90s, 98% on room air. Repeat EKG shows atrial fibrillation with moderately rapid ventricular response. White blood cell count on admission 11.5, 7.4 this morning, hemoglobin 15.2 on admission, 13.3 this morning. Platelet count 310. Sodium on admission 128, 130 this morning. BUN 18, creatinine 0.9, magnesium 1.6. Potassium 3.7. Troponin 0.048, 0.073. TSH 1.3. At the time of my examination this morning, patient feels well, no complaints. 06/03/2018 Patient was seen and examined this morning, continues to be in atrial fibrillation, heart rate in the 70s. Earlier this morning her heart rate was up in the 120 range, as well as it through the night, beta lily was increased to 50 mg one tablet by mouth 3 times a day. 06/04/2018 Patient was seen and examined this morning, overall feeling well she just states that she feels weak because she's been in bed for so many days. Continues to be in A. fib, her rate is under adequate control. From cardiology' s perspective, she may be able to be discharged home to follow-up in the office with Dr. Travis Caldwell. 06/08/2018 Patient seen and examined this morning, converted to normal sinus rhythm and remains in normal sinus rhythm. Once the IV amiodarone is discontinued we will start the patient on amiodarone 400 mg by mouth daily. LUKE and cardioversion which are scheduled for today have been canceled. Objective - Vital Signs Vital signs: Vital Signs Temp 97.2 F L 06/08/18 03:24 Pulse 45 L 06/08/18 03:27 Resp 17 06/08/18 03:27 BP 124/58 06/08/18 03:24 Pulse Ox 92 L 06/08/18 03:24 Intake & Output 06/07/18 06/08/18 06/08/18 18:59 06:59 18:59 Intake Total 1172.36 516.64 240 Balance 1172.36 516.64 240 Weight 73.6 kg 73.8 kg Intake: IV 40 Sodium Chloride 0.9% 1, 40 000 ml @ 20 mls/hr IV . Q24H DAXA Rx#:[id number] Intake, IV Titration 212.36 266.64 Amount Amiodarone 450 mg In 212.36 46.64 Dextrose 5% in Water 250 ml @ 1 MG/MIN 34.53 mls/ hr IV .Q7H31M DAXA Rx#: [id number] Sodium Chloride 0.9% 1, 220 000 ml @ 20 mls/hr IV . Q24H DAXA Rx#:[id number] Oral 920 250 240 Other: Voiding Method Toilet Toilet # Voids 1 2 - Exam PHYSICAL EXAMINATION: GENERAL: 88-year-old female in no acute distress at the time of my examination HEENT: Head is atraumatic, normocephalic. Pupils equal, round. Sclera anicteric. Conjunctiva are clear. Mucous membranes of the mouth are moist. Neck is supple. There is no elevated jugular venous pressure. No carotid bruit is heard. HEART EXAMINATION: S1 and S2 normal systolic murmur is heard. CHEST EXAMINATION: Lungs are clear to auscultation and precussion. No chest wall tenderness is noted on palpation or with deep breathing. ABDOMEN: Soft, nontender. Bowel sounds are heard. No organomegaly noted. EXTREMITIES: 2+ peripheral pulses with no evidence of peripheral edema and no calf tenderness noted. Mild discoloration noted in bilateral lower extremities NEUROLOGIC patient is awake, alert and oriented X3. - Labs CBC & Chem 7: 06/08/18 07:31 06/08/18 07:31 Labs: Abnormal Lab Results - Last 24 Hours (Table) 06/08/18 Range/Units 07:31 Chloride 108 H (98-107) mmol/L Carbon Dioxide 21 L (22-30) mmol/L BUN 22 H (7-17) mg/dL Assessment and Plan Plan: Assessment and plan #1 atrial flutter with rapid ventricular response currently in persistent atrial fibrillation with moderately rapid ventricular rate. TSH is normal #2 history of atrial arrhythmia, on Cardizem at home #3 hypertension #4 hypomagnesemia Plan From cardiology's perspective, patient may be able to be discharged home today. We will add amiodarone 400 mg one tablet daily to her medication regime. We' ll make her a follow-up appointment to see Dr. FRANCISCO JAVIER Caldwell in the office post discharge. DNP note has been reviewed, I agree with a documented findings and plan of care. Patient was seen and examined.
[2018-06-08] MEDS: METOPROLOL TARTRATE 50 MG TAB PO SCH ×2 (17:33→22:44)
[2018-06-08] MEDS: AMIODARONE 200 MG TAB PO SCH (17:33)
[2018-06-08] MEDS: SODIUM CHLORIDE 0.9% 1,000 ML IV SCH (18:36)
[2018-06-08] MEDS: LORazepam 1 MG TAB PO PRN (20:44)
[2018-06-08] MEDS: MIRTAZAPINE 15 MG TAB PO SCH (20:44)
--- NOTE | 2018-06-08 22:35 | PN ---
PROGRESS NOTE CHIEF COMPLAINT: Re-evaluation. HISTORY OF PRESENT ILLNESS: This 88-year-old female was admitted to the hospital with atrial flutter and also subsequently degenerating into atrial fibrillation with rapid ventricular rate. The patient was scheduled for a LUKE and cardioversion; however, in the night the patient cardioverted on amiodarone drip. She is feeling fairly well otherwise. Denies any symptoms of palpitations or shortness of breath. She did sleep well. She was started on Remeron last night for depression. She is doing better this morning. Obviously, with the patient back in a sinus rhythm, the LUKE and cardioversion are being canceled. REVIEW OF SYSTEMS: NEURO: Denies any headaches, dizziness. PSYCH: Some anxiety and depression. CARDIAC: Denies chest pain, angina, palpitations. RESPIRATORY: Denies shortness of breath, cough, hemoptysis. GI: No nausea, vomiting, abdominal pain, diarrhea. : No symptoms of dysuria, hematuria. EXTREMITIES: Denies pain, edema. CONSTITUTIONAL: No fever or chills. PHYSICAL EXAMINATION: Pleasant female in no distress. Vital signs reveal temperature 97.2, pulse 45, respirations 17, blood pressure 124/58, pulse ox 92% on room air. HEENT: Normocephalic. NECK: No JVD. CHEST: Clear to auscultation. CARDIAC: Normal S1 and S2 with no gallops or murmurs. ABDOMEN: Soft. Bowel sounds present. Extremities reveal no edema. Good pulses, both upper and lower extremities. Neurologically awake, alert, oriented with well-coordinated movements. LABORATORY ASSESSMENT: CBC normal. BMP normal. ASSESSMENT: 1. Atrial fibrillation, converted. 2. Bradycardia. 3. Hypertension, controlled. 4. Chronic back pain. 5. Depression. PLAN: Continue present medical regimen. Patient's condition discussed with the patient. Prognosis remains guarded. Will decrease the metoprolol from 100 b.i.d. to 50 b.i.d. Meanwhile, the patient to ambulate. Probable discharge home tomorrow. Patient's condition discussed with the patient and also with her son, JOLIE, over the phone. MMODL / IJN: [id number] /
[2018-06-09] MEDS: METOPROLOL TARTRATE 50 MG TAB PO SCH (08:37)
[2018-06-09] MEDS: RALOXIFENE 60 MG TAB PO SCH (08:37)
[2018-06-09] MEDS: AMIODARONE 200 MG TAB PO SCH (08:37)
[2018-06-09] MEDS: HYDROcodone/APAP 7.5-325MG 1 EACH TAB PO PRN (08:37)
[2018-06-09] MEDS: APIXABAN 2.5 MG TABLET PO SCH (08:37)
[2018-06-09 11:19] VITALS: BP 115/62; PULSE 55; RESP 16; TEMP 99
--- NOTE | 2018-06-09 14:30 | P.PN ---
Subjective Progress Note Date: 06/09/18 This is a pleasant 88-year-old female with past medical history of hypertension, arrhythmia, for which she was on Cardizem 120 at home, she was directed by her primary care physician to take a half a pill in the morning and a half a pill in the evening and that if she felt herself go into a rapid irregular rhythm she was okay to take an additional dose. For approximately 3 days the patient has been experiencing symptoms of weakness and generalized lightheadedness, she also states that she's been having occasional episodes where she feels dull heaviness in her chest. She does also state that when she gets up too fast she has some mild dizziness. Because of the symptoms primarily of weakness she went to primary care physician's office, not her regular doctor he is currently on vacation, and EKG was performed there, patient was found to be in rapid atrial flutter with a heart rate in the 150s to 160s and patient was advised to come to the hospital for further evaluation. Patient denied at that time feeling any palpitations or heart racing, no chest discomfort at that time. Initial EKG on presentation here showed typical atrial flutter with 2-1 AV conduction. Chest x-ray showed intermediate lung nodule as described. Substernal nodular density which is likely related to previously described nodule from prior CAT scan. Blood pressure on arrival here 105/70 with a heart rate in the 150s, 90% on room air, afebrile. Blood pressure this morning 130/80 with a heart rate in the 90s, 98% on room air. Repeat EKG shows atrial fibrillation with moderately rapid ventricular response. White blood cell count on admission 11.5, 7.4 this morning, hemoglobin 15.2 on admission, 13.3 this morning. Platelet count 310. Sodium on admission 128, 130 this morning. BUN 18, creatinine 0.9, magnesium 1.6. Potassium 3.7. Troponin 0.048, 0.073. TSH 1.3. At the time of my examination this morning, patient feels well, no complaints. 06/03/2018 Patient was seen and examined this morning, continues to be in atrial fibrillation, heart rate in the 70s. Earlier this morning her heart rate was up in the 120 range, as well as it through the night, beta lily was increased to 50 mg one tablet by mouth 3 times a day. 06/04/2018 Patient was seen and examined this morning, overall feeling well she just states that she feels weak because she's been in bed for so many days. Continues to be in A. fib, her rate is under adequate control. From cardiology' s perspective, she may be able to be discharged home to follow-up in the office with Dr. Travis Caldwell. 06/08/2018 Patient seen and examined this morning, converted to normal sinus rhythm and remains in normal sinus rhythm. Once the IV amiodarone is discontinued we will start the patient on amiodarone 400 mg by mouth daily. LUKE and cardioversion which are scheduled for today have been canceled. 06/09/2018 seen and examined today, doing well overall. She may be able to be discharged from our perspective, we'll make her a follow-up appointment to see Dr. FRANCISCO JAVIER Caldwell in the office post discharge. Objective - Vital Signs Vital signs: Vital Signs Temp 99 F 06/09/18 11:18 Pulse 55 L 06/09/18 11:18 Resp 16 06/09/18 11:18 BP 115/62 06/09/18 11:18 Pulse Ox 97 06/09/18 11:18 Intake & Output 06/08/18 06/09/18 06/09/18 18:59 06:59 18:59 Intake Total 480 10 300 Balance 480 10 300 Weight 73.8 kg Intake: IV 10 Invasive Line 3 10 Oral 480 300 Other: Voiding Method Toilet Toilet Toilet # Voids 1 1 - Exam PHYSICAL EXAMINATION: GENERAL: 88-year-old female in no acute distress at the time of my examination HEENT: Head is atraumatic, normocephalic. Pupils equal, round. Sclera anicteric. Conjunctiva are clear. Mucous membranes of the mouth are moist. Neck is supple. There is no elevated jugular venous pressure. No carotid bruit is heard. HEART EXAMINATION: S1 and S2 normal systolic murmur is heard. CHEST EXAMINATION: Lungs are clear to auscultation and precussion. No chest wall tenderness is noted on palpation or with deep breathing. ABDOMEN: Soft, nontender. Bowel sounds are heard. No organomegaly noted. EXTREMITIES: 2+ peripheral pulses with no evidence of peripheral edema and no calf tenderness noted. Mild discoloration noted in bilateral lower extremities NEUROLOGIC patient is awake, alert and oriented X3. - Labs CBC & Chem 7: 06/08/18 07:31 06/08/18 07:31 Assessment and Plan Plan: Assessment and plan #1 atrial flutter with rapid ventricular response currently in persistent atrial fibrillation with moderately rapid ventricular rate. TSH is normal #2 history of atrial arrhythmia, on Cardizem at home #3 hypertension #4 hypomagnesemia Plan From cardiology's perspective, patient may be able to be discharged home today. Continue amiodarone 400 mg one tablet daily to her medication regime. We'll make her a follow-up appointment to see Dr. FRANCISCO JAVIER Caldwell in the office post discharge. DNP note has been reviewed, I agree with a documented findings and plan of care. Patient was seen and examined.
== END 2018-06-09 13:01 | disposition home health service (06) | DRG 309 ==
LOC: EC 11:05 → 6SEL 13:54
PROVIDERS: ADMIT Internal Medicine; ATTEND Internal Medicine
DX: I48.3 Typical atrial flutter (principal); E87.1 Hypo-osmolality and hyponatremia; E87.2 Acidosis; E83.42 Hypomagnesemia; I48.1 Persistent atrial fibrillation; I10 Essential (primary) hypertension; F32.9 Major depressive disorder, single episode, unspecified; F41.9 Anxiety disorder, unspecified; M54.9 Dorsalgia, unspecified; G89.29 Other chronic pain; M19.91 Primary osteoarthritis, unspecified site; H26.9 Unspecified cataract; R91.1 Solitary pulmonary nodule; Z79.82 Long term (current) use of aspirin; Z79.810 Long term (current) use of selective estrogen receptor modulators (SERMs); Z79.899 Other long term (current) drug therapy; Z98.51 Tubal ligation status; Z90.49 Acquired absence of other specified parts of digestive tract; Z96.612 Presence of left artificial shoulder joint; Z87.891 Personal history of nicotine dependence; Z98.41 Cataract extraction status, right eye; Z96.1 Presence of intraocular lens; Z80.9 Family history of malignant neoplasm, unspecified; Z82.49 Family history of ischemic heart disease and other diseases of the circulatory system; Z81.1 Family history of alcohol abuse and dependence
CPT/HCPCS: 36415; 71046; 80048; 80053; 81001; 82550; 82553; 83735; 84443; 84484; 85025; 85610; 85730; 93005; 93306; 96365; 96366; 96368; 96376; 99285

== ENCOUNTER → 2018-06-29 | Outpatient (CLI) | payer MEDICARE ==
[2018-06-29 16:33] LABS: Calcium 9.4 mg/dL (8.4-10.2)
== END | disposition home or self-care (01) ==
LOC: LABWHC1 14:53
PROVIDERS: ATTEND Nurse Practitioner Adult Health
DX: R60.0 Localized edema (principal)
CPT/HCPCS: 36415; 80048

== ENCOUNTER 2018-11-16 06:35 | Day surgery (SDC) | payer MEDICARE ==
[2018-11-10 14:35] VITALS: BMI 26.9
[~2018-11-16 06:35] MED LIST: LACTATED RINGERS 1,000 ML IV SCH; LIDOCAINE 1% 20 ML VIAL (10MG/ML) FOR IV START INTRADERMA PRN; TETRACAINE 0.5% OPHTH (PF) DROPS 4 ML BTL OP ONE
[2018-11-16] MEDS: PHENYLEPHRINE 2.5% OPHTH DRP 2ML OP NR ×3 (06:58→07:17)
[2018-11-16 07:02] VITALS: TEMP 97.7
[2018-11-16] MEDS: CYCLOPENTOLATE 1% OPHTH SOLN 2 ML BTL OP ONE ×3 (07:02→07:20)
[2018-11-16] MEDS ORDERED: MIDAZOLAM 2 MG/2 ML VIAL ONE (07:25)
[2018-11-16] MEDS ORDERED: fentaNYL (PF) 50 MCG/ML 2 ML AMP ONE (07:25)
[2018-11-16] MEDS ORDERED: HYALURONATE SODIUM INTRAOCULAR 1 EACH SYRINGE (12MG/ML) INTRAOCULA ONE ×2 (07:39→07:46)
[2018-11-16] MEDS: TIMOLOL 0.5% OPHTH DROPS 5 ML BTL OP ONE ×2 (07:40→07:46)
[2018-11-16] MEDS ORDERED: BALANCED SALT IRRIG SOLN COMB2 15 ML IRRIG.SOLN IRRIGATION ONE ×2 (07:40→07:46)
[2018-11-16] MEDS ORDERED: LIDOCAINE 1% (PF) 10MG/ML VIAL SQ ONE ×2 (07:40→07:46)
[2018-11-16] MEDS: MOXIFLOXACIN HCL 0.5% DROPS 3 ML BTL OP ONE ×2 (07:40→07:46)
[2018-11-16] MEDS ORDERED: EPINEPHrine (PF) 0.3 ML in BALANCED SALT IRRIG SOLN COMB2 500 ML IRRIGATION ONE (07:41)
--- NOTE | 2018-11-16 07:58 | P.OP ---
Date of Procedure: 11/16/18 Preoperative Diagnosis: NS & CS Postoperative Diagnosis: same Procedure(s) Performed: PIOL, OS Implants: PCB00 19.00 Anesthesia: MAC Surgeon: Jose Villegas Estimated Blood Loss (ml): 0 Pathology: none sent Condition: stable Disposition: same day Indications for Procedure: Blurry vision Operative Findings: no complications
[2018-11-16 08:29] VITALS: BP 121/78; PULSE 56; RESP 18
--- NOTE | 2018-11-16 12:27 | OP ---
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 POSTOPERATIVE DIAGNOSIS: Nuclear sclerosis and cortical sclerosis. OPERATION: Phacoemulsification of cataract and intraocular lens implant of the left eye. ESTIMATED BLOOD LOSS: Zero. SPECIMEN TAKEN: None. NARRATIVE: After obtaining the appropriate consent, the patient was brought to the operating room where the patient was placed under cardiac monitoring and prepped and draped in the usual sterile manner. At the 5 o'clock position a 15 degree super sharp blade was used to create a paracentesis followed by instillation of 1% Xylocaine MPF 50:50 mix with BSS into the anterior chamber. This was followed by viscoelastic Amvisc to stabilize the anterior chamber. At the 3 o'clock position a self-sealing corneal flap incision was created using 2.8 mm vicenta keratome. A cystotome was used to initiate a continuous tear capsulorrhexis which was completed with the Utrata forceps. A Binkhorst cannula was used to hydrodissect the lens nucleus followed by hydrodelineation. Phacoemulsification of the lens was performed utilizing phaco chop in 12.85 seconds at 19% power. The remaining cortical material was removed using the irrigation aspiration mode followed by additional 1% Xylocaine MPF into the anterior chamber followed by viscoelastic to stabilize the capsular bag. A Mahesh-Mahesh PCB00 19.0 diopters posterior chamber lens was placed into the capsular bag without difficulty. The remaining viscoelastic material was removed from the anterior chamber with the irrigation/aspiration. Balanced salt solution was used to normalize the intraocular pressure. The incision was checked for watertight integrity. The patient then received two drops of 0.5% timolol followed by two drops Vigamox, was lightly patched and shielded in the usual manner. There were no complications from the procedure. The patient tolerated the procedure well and was returned to recovery in good condition. MMODL / IJN: [id number] /
== END 2018-11-16 08:36 | disposition home or self-care (01) ==
LOC: OR 06:35
PROVIDERS: ATTEND Ophthalmology
DX: H25.12 Age-related nuclear cataract, left eye (principal); K21.9 Gastro-esophageal reflux disease without esophagitis; I48.91 Unspecified atrial fibrillation; I11.0 Hypertensive heart disease with heart failure; I50.9 Heart failure, unspecified; H25.012 Cortical age-related cataract, left eye; H02.831 Dermatochalasis of right upper eyelid; H02.834 Dermatochalasis of left upper eyelid; H00.023 Hordeolum internum right eye, unspecified eyelid; H00.026 Hordeolum internum left eye, unspecified eyelid; H52.4 Presbyopia; H52.13 Myopia, bilateral; F32.9 Major depressive disorder, single episode, unspecified; M19.90 Unspecified osteoarthritis, unspecified site; F41.9 Anxiety disorder, unspecified; G47.00 Insomnia, unspecified; Z79.891 Long term (current) use of opiate analgesic; Z79.899 Other long term (current) drug therapy; Z79.01 Long term (current) use of anticoagulants; Z96.612 Presence of left artificial shoulder joint; Z98.42 Cataract extraction status, left eye; Z96.1 Presence of intraocular lens; Z97.3 Presence of spectacles and contact lenses; Z87.891 Personal history of nicotine dependence
CPT/HCPCS: 66984; C1780; J2250; J0171; J3010; J2001

== ENCOUNTER 2019-01-19 12:48 | Observation (INO) | payer MEDICARE, BC ==
--- NOTE | 2019-01-19 13:47 | ED ---
General Adult HPI - General Chief complaint: Shortness of Breath Stated complaint: SOB weakness Time Seen by Provider: 01/19/19 13:26 Source: patient, RN notes reviewed, old records reviewed Mode of arrival: wheelchair Limitations: no limitations - History of Present Illness Initial comments: 88 yo female presented for evaluation of dyspnea generalized weakness. Patient has history of congestive heart failure. Symptoms have progressed over one week. She said generalized weakness, decreased appetite, dyspnea. Dyspnea began as orthopnea, has progressed to dyspnea with exertion. She denies weight gain. Denies lower extremity pain or swelling. Denies chest pain. Denies nausea vomiting but has had decreased appetite. No fever or chills. No dysuria or hematuria. - Related Data Home Medications Medication Instructions Recorded Confirmed HYDROcodone/APAP 7.5-325MG [Rupert 1 tab PO TID PRN 10/24/15 01/19/19 7.5-325] Raloxifene [Evista] 60 mg PO DAILY 10/24/15 01/19/19 LORazepam [Ativan] 1 mg PO HS 05/31/18 01/19/19 Furosemide [Lasix] 40 mg PO QAM 11/10/18 01/19/19 Metoprolol Tartrate [Lopressor] 25 mg PO QAM 11/10/18 01/19/19 Potassium Chloride [K-Tab ER] 10 meq PO DAILY 11/10/18 01/19/19 Previous Rx's Medication Instructions Recorded Apixaban [Eliquis] 2.5 mg PO BID #60 tablet 06/09/18 Mirtazapine [Remeron] 7.5 mg PO HS #30 tab 06/09/18 Allergies Allergy/AdvReac Type Severity Reaction Status Date / Time No Known Allergies Allergy Verified 01/19/19 13:36 Review of Systems ROS Statement: Those systems with pertinent positive or pertinent negative responses have been documented in the HPI. ROS Other: All systems not noted in ROS Statement are negative. Past Medical History Past Medical History: Atrial Fibrillation, Eye Disorder, Hypertension, Musculoskeletal Disorder, Osteoarthritis (OA) Additional Past Medical History / Comment(s): has lt eye cataract, uses cane wh en up. History of Any Multi-Drug Resistant Organisms: None Reported Past Surgical History: Appendectomy, Back Surgery, Section, Joint Replacement, Tubal Ligation Additional Past Surgical History / Comment(s): left knee & left shoulder replaced, back surg. x 2, rt eye cataract removed-has lens implant, 1 upper dental implant. Past Anesthesia/Blood Transfusion Reactions: Postoperative Nausea & Vomiting (PONV) Additional Past Anesthesia/Blood Transfusion Reaction / Comment(s): no hx blood transfusion Past Psychological History: Anxiety, Depression Smoking Status: Former smoker Past Alcohol Use History: None Reported Past Drug Use History: None Reported - Past Family History Sister(s) Family Medical History: Cancer Mother Family Medical History: Coronary Artery Disease (CAD) Additional Family Medical History / Comment(s): "heart problems" Father Additional Family Medical History / Comment(s): alcoholic General Exam Limitations: no limitations General appearance: alert, in no apparent distress Head exam: Present: atraumatic, normocephalic Eye exam: Present: normal appearance, PERRL ENT exam: Present: normal exam Neck exam: Present: normal inspection Respiratory exam: Present: normal lung sounds bilaterally, respiratory distress. Absent: rales Cardiovascular Exam: Present: regular rate, irregular rhythm GI/Abdominal exam: Present: soft. Absent: distended, tenderness, guarding Extremities exam: Present: normal inspection, normal capillary refill. Absent: pedal edema, joint swelling, calf tenderness Neurological exam: Present: alert, oriented X3, CN II-XII intact. Absent: motor sensory deficit Psychiatric exam: Present: normal affect, normal mood Skin exam: Present: warm, dry, intact. Absent: cyanosis, diaphoretic Course Vital Signs 01/19/19 13:22 Temperature 97.9 F Pulse Rate 88 Respiratory 24 Rate Blood Pressure 132/78 O2 Sat by Pulse 98 Oximetry EKG Findings - EKG Comments: EKG Findings:: EKG: Atrial fibrillation, left axis deviation, no ST segment elevation rate of 89, QRS duration 86, QTC 345 Medical Decision Making - Medical Decision Making 80-year-old female presenting with dyspnea and orthopnea. Patient has history of atrial fibrillation, history of congestive heart failure she is currently on Eliquis. No significant weight gain or pedal edema. Chest x-ray negative for eric pulmonary edema. She has normal CBC, CMP shows mild hypokalemia, creatin ine 1.13 which is mildly elevated above baseline. She has troponin elevation 0.044. BMP is pending. Urinalysis negative for infection. Patient given aspirin, and Lasix in the emergency department. She will be admitted to trend cardiac enzymes, echo will be obtained. Cardiology placed on consult. Case discussed with admitting physician. - Lab Data Result diagrams: 01/19/19 14:27 01/19/19 14:27 Lab Results 01/19/19 01/19/19 01/19/19 Range/Units 14:25 14:27 14:27 WBC 8.9 (3.8-10.6) k/uL RBC 4.94 (3.80-5.40) m/uL Hgb 15.0 (11.4-16.0) gm/dL Hct 44.6 (34.0-46.0) % MCV 90.4 (80.0-100.0) fL MCH 30.3 (25.0-35.0) pg MCHC 33.6 (31.0-37.0) g/dL RDW 13.6 (11.5-15.5) % Plt Count 309 (150-450) k/uL Neutrophils % 75 % Lymphocytes % 15 % Monocytes % 6 % Eosinophils % 1 % Basophils % 0 % Neutrophils # 6.6 (1.3-7.7) k/uL Lymphocytes # 1.4 (1.0-4.8) k/uL Monocytes # 0.6 (0-1.0) k/uL Eosinophils # 0.1 (0-0.7) k/uL Basophils # 0.0 (0-0.2) k/uL PT (9.0-12.0) sec INR (<1.2) APTT (22.0-30.0) sec Sodium 142 (137-145) mmol/L Potassium 3.4 L (3.5-5.1) mmol/L Chloride 100 (98-107) mmol/L Carbon Dioxide 30 (22-30) mmol/L Anion Gap 12 mmol/L BUN 27 H (7-17) mg/dL Creatinine 1.13 H (0.52-1.04) mg/dL Est GFR (CKD-EPI)AfAm 50 (>60 ml/min/1.73 sqM) Est GFR (CKD-EPI)NonAf 44 (>60 ml/min/1.73 sqM) Glucose 114 H (74-99) mg/dL Calcium 10.0 (8.4-10.2) mg/dL Magnesium 1.9 (1.6-2.3) mg/dL Total Bilirubin 0.7 (0.2-1.3) mg/dL AST 20 (14-36) U/L ALT 28 (9-52) U/L Alkaline Phosphatase 67 (38-126) U/L Troponin I (0.000-0.034) ng/mL Total Protein 7.5 (6.3-8.2) g/dL Albumin 4.6 (3.5-5.0) g/dL Urine Color Light Yellow Urine Appearance Clear (Clear) Urine pH 7.0 (5.0-8.0) Ur Specific [place] 1.010 (1.001-1.035) Urine Protein Negative (Negative) Urine Glucose (UA) Negative (Negative) Urine Ketones Negative (Negative) Urine Blood Negative (Negative) Urine Nitrite Negative (Negative) Urine Bilirubin Negative (Negative) Urine Urobilinogen <2.0 (<2.0) mg/dL Ur Leukocyte Esterase Negative (Negative) 01/19/19 01/19/19 Range/Units 14:27 14:27 WBC (3.8-10.6) k/uL RBC (3.80-5.40) m/uL Hgb (11.4-16.0) gm/dL Hct (34.0-46.0) % MCV (80.0-100.0) fL MCH (25.0-35.0) pg MCHC (31.0-37.0) g/dL RDW (11.5-15.5) % Plt Count (150-450) k/uL Neutrophils % % Lymphocytes % % Monocytes % % Eosinophils % % Basophils % % Neutrophils # (1.3-7.7) k/uL Lymphocytes # (1.0-4.8) k/uL Monocytes # (0-1.0) k/uL Eosinophils # (0-0.7) k/uL Basophils # (0-0.2) k/uL PT 10.6 (9.0-12.0) sec INR 1.0 (<1.2) APTT 24.4 (22.0-30.0) sec Sodium (137-145) mmol/L Potassium (3.5-5.1) mmol/L Chloride (98-107) mmol/L Carbon Dioxide (22-30) mmol/L Anion Gap mmol/L BUN (7-17) mg/dL Creatinine (0.52-1.04) mg/dL Est GFR (CKD-EPI)AfAm (>60 ml/min/1.73 sqM) Est GFR (CKD-EPI)NonAf (>60 ml/min/1.73 sqM) Glucose (74-99) mg/dL Calcium (8.4-10.2) mg/dL Magnesium (1.6-2.3) mg/dL Total Bilirubin (0.2-1.3) mg/dL AST (14-36) U/L ALT (9-52) U/L Alkaline Phosphatase (38-126) U/L Troponin I 0.044 H* (0.000-0.034) ng/mL Total Protein (6.3-8.2) g/dL Albumin (3.5-5.0) g/dL Urine Color Urine Appearance (Clear) Urine pH (5.0-8.0) Ur Specific [place] (1.001-1.035) Urine Protein (Negative) Urine Glucose (UA) (Negative) Urine Ketones (Negative) Urine Blood (Negative) Urine Nitrite (Negative) Urine Bilirubin (Negative) Urine Urobilinogen (<2.0) mg/dL Ur Leukocyte Esterase (Negative) Disposition Clinical Impression: Congestive heart failure, Elevated troponin I level Disposition: ADMITTED IP TO THIS [facility] Condition: Stable Is patient prescribed a controlled substance at d/c from ED?: No Referrals: Quinn Dailey MD [Primary Care Provider] - 1-2 days Decision to Admit Reason: Admit from EC Decision Date: 01/19/19 Decision Time: 16:26
[2019-01-19 14:56] LABS: Basophils % (A) 0 %; Eosinophils # (A) 0.1 k/uL (0-0.7); Eosinophils % (A) 1 %; HCT 44.6 % (34.0-46.0); Lymphocytes # (A) 1.4 k/uL (1.0-4.8); Lymphocytes % (A) 15 %; MCH 30.3 pg (25.0-35.0); MCHC 33.6 g/dL (31.0-37.0); MCV 90.4 fL (80.0-100.0); Monocytes # (A) 0.6 k/uL (0-1.0); Monocytes % (A) 6 %; Neutrophils # (A) 6.6 k/uL (1.3-7.7); Neutrophils % (A) 75 %; Platelet Count 309 k/uL (150-450); RBC 4.94 m/uL (3.80-5.40); RDW 13.6 % (11.5-15.5); WBC 8.9 k/uL (3.8-10.6)
[2019-01-19 14:58] LABS: Appearance,Urine Clear (Clear); Bilirubin,Urine Negative (Negative); Blood,Urine Negative (Negative); Color,Urine Light Yellow; Glucose,Urine (UA) Negative (Negative); Ketones,Urine Negative (Negative); Leukocyte Esterase,Urine Negative (Negative); Nitrite,Urine Negative (Negative); Protein,Urine Negative (Negative); Urobilinogen,Urine <2.0 mg/dL (<2.0)
[2019-01-19 15:08] LABS: Albumin 4.6 g/dL (3.5-5.0); Magnesium 1.9 mg/dL (1.6-2.3); Potassium 3.4 mmol/L (3.5-5.1); Total Bilirubin 0.7 mg/dL (0.2-1.3); Total Protein 7.5 g/dL (6.3-8.2)
[2019-01-19 15:09] LABS: Partial Thromboplastin Time 24.4 sec (22.0-30.0); Prothrombin Time 10.6 sec (9.0-12.0)
--- NOTE | 2019-01-19 15:26 | XR ---
EXAMINATION TYPE: XR chest 2V DATE OF EXAM: 01/19/2019 COMPARISON: Prior chest x-ray 05/31/2018 HISTORY: Difficulty breathing, shortness of breath TECHNIQUE: Frontal and lateral views of the chest are obtained. FINDINGS: There is no focal air space opacity, pleural effusion, or pneumothorax seen. The cardiac silhouette size is within normal limits. Patient is status post left shoulder arthroplasty. Arthropa thy noted in the right shoulder. The aorta is dense. The osseous structures are intact. IMPRESSION: No acute cardiopulmonary process. Previously identified subpleural nodule seen with cert ainty.
[2019-01-19] MEDS ORDERED: FUROSEMIDE 10 MG/ML 4 ML VIAL IV STA (15:53)
[2019-01-19] MEDS ORDERED: ASPIRIN 325 MG TAB PO STA (15:53)
[2019-01-19] MEDS ORDERED: NALOXONE 0.4 MG/ML 1 ML VIAL IV PRN (16:22)
--- NOTE | 2019-01-19 19:01 | P.HPIM ---
History of Present Illness H&P Date: 01/19/19 Chief Complaint: Shortness of breath 88-year-old female with PMH of atrial fibrillation, hypertension presents the ED for shortness of breath. Patient reports progressive shortness of breath that has been worsening over the past 2 days. Patient initially reported dyspnea intermittently but has become more constant recently. She also reports generalized weakness at this time. She denies any orthopnea or lower extremity edema. Patient reports falling 3 days ago, states that her knee buckled, denied any loss of consciousness. She also reports some chest pressure at this time. Patient denies any headaches, lower extremity edema, nausea, vomiting, fever, cough, chest pain, palpitations, changes in urination or bowel habits. Patient does report a decrease in appetite. Patient reports feeling depressed since loss of her less than one year ago. In the ED, patient's vital signs are stable except for heart rate which ranged from 88 to 140s on telemetry. CBC was unremarkable. Correlation thousand negative. CMP showed a potassium of 3.4, BUN of 27 and creatinine 1.13. Troponin was 0.044. BNP was 3810. Chest x-ray was negative. Patient is admitted for shortness of breath and elevated troponins, cardiology on consult. Review of Systems Pertinent positives and negatives as discussed in HPI, a complete review of systems was performed and all other systems are negative. Past Medical History Past Medical History: Atrial Fibrillation, Eye Disorder, Hypertension, Musculoskeletal Disorder, Osteoarthritis (OA) Additional Past Medical History / Comment(s): has lt eye cataract, uses cane when up. History of Any Multi-Drug Resistant Organisms: None Reported Past Surgical History: Appendectomy, Back Surgery, Section, Joint Replacement, Tubal Ligation Additional Past Surgical History / Comment(s): left knee & left shoulder replaced, back surg. x 2, rt eye cataract removed-has lens implant, 1 upper dental implant. Past Anesthesia/Blood Transfusion Reactions: Postoperative Nausea & Vomiting (PONV) Additional Past Anesthesia/Blood Transfusion Reaction / Comment(s): no hx blood transfusion Past Psychological History: Anxiety, Depression Smoking Status: Former smoker Past Alcohol Use History: None Reported Past Drug Use History: None Reported - Past Family History Sister(s) Family Medical History: Cancer Mother Family Medical History: Coronary Artery Disease (CAD) Additional Family Medical History / Comment(s): "heart problems" Father Additional Family Medical History / Comment(s): alcoholic Medications and Allergies Home Medications Medication Instructions Recorded Confirmed Type RX: HYDROcodone/APAP 7.5-325MG 1 tab PO TID PRN 10/24/15 01/19/19 History [[place] 7.5-325] RX: Raloxifene [Evista] 60 mg PO DAILY 10/24/15 01/19/19 History RX: LORazepam [Ativan] 1 mg PO HS 05/31/18 01/19/19 History RX: Apixaban [Eliquis] 2.5 mg PO BID #60 tablet 06/09/18 01/19/19 Rx RX: Mirtazapine [Remeron] 7.5 mg PO HS #30 tab 06/09/18 01/19/19 Rx Furosemide [Lasix] 40 mg PO QAM 11/10/18 01/19/19 History Potassium Chloride [K-Tab ER] 10 meq PO DAILY 11/10/18 01/19/19 History RX: Metoprolol Tartrate [Lopressor] 25 mg PO QAM 11/10/18 01/19/19 History Allergies Allergy/AdvReac Type Severity Reaction Status Date / Time No Known Allergies Allergy Verified 01/19/19 13:36 Physical Exam Vitals: Vital Signs Temp Pulse Resp BP Pulse Ox 01/19/19 17:00 98.0 F 108 H 20 126/77 98 01/19/19 13:22 97.9 F 88 24 132/78 98 Intake and Output 01/19/19 01/19/19 01/19/19 06:59 14:59 22:59 Other: Weight 72.756 kg General: [non toxic], [no distress], [appears at stated age] Derm: [warm], [dry] Head: [atraumatic], [normocephalic], [symmetric] Eyes: [EOMI], [no lid lag], [anicteric sclera] Mouth: [no lip lesion], [mucus membranes moist] Cardiovascular: [S1S2 reg], [irregularly irregular], [positive DP pulse bilateral] Lungs: [CTA bilateral], [no rhonchi, no rales] , [no accessory muscle use] Abdominal: [soft], [ nontender to palpation], [no guarding], [no appreciable organomegaly] Ext: [no gross muscle atrophy], [no edema], [no contractures] Neuro: [ CN II-XI grossly intact], [no focal neuro deficits] Psych: [Alert], [oriented], [appropriate affect] Results CBC & Chem 7: 01/19/19 14:27 01/19/19 14:27 Labs: Abnormal Lab Results - Last 24 Hours (Table) 01/19/19 01/19/19 Range/Units 14:27 14:27 Potassium 3.4 L (3.5-5.1) mmol/L BUN 27 H (7-17) mg/dL Creatinine 1.13 H (0.52-1.04) mg/dL Glucose 114 H (74-99) mg/dL Troponin I 0.044 H* (0.000-0.034) ng/mL Thrombosis Risk Factor Assmnt - Choose All That Apply Any of the Below Risk Factors Present?: Yes Each Factor Represents 1 point: Obesity (BMI >25) Other Risk Factors: Yes Each Risk Factor Represents 3 Points: Age 75 years or older Thrombosis Risk Factor Assessment Total Risk Factor Score: 4 Thrombosis Risk Factor Assessment Level: Moderate Risk Assessment and Plan Assessment: Assessment and Plan 1. Shortness of breath likely secondary to atrial fibrillation with RVR 2. Troponin elevation 3. Atrial fibrillation 4. Hypertension 5. Acute kidney injury 6. Hypokalemia Chest x-ray negative. BNP 3810, echocardiogram in the past showing EF 55-60% with moderate LVH. Troponin 0.044, with EKG showing atrial fibrillation. Plan: Rule out acute coronary syndrome. Follow-up echocardiogram. Ensure that rate is controlled. Troponin 0.044, with EKG showing atrial fibrillation. Plan: Trend 2 Trop/EKG to rule out ACS. Follow cardiology consult. Follow lipid panel. Restart metoprolol. Telemetry monitoring. Heart rate as high as 140s and ED. Plan: Telemetry monitoring. Continue metoprolol. Continue Eliquis. Initial potassium greater than 4 and magnesium greater than 2. Follow echocardiogram, cardiology consult. BP 126/77. Continue metoprolol. Monitor vitals, adjust medications as necessary. BUN 27, creatinine 1.13. Possibly on CKD. Plan: Avoid nephrotoxins. Daily BMP. Encourage hydration by mouth. Potassium 3.4. Plan: Replace by mouth.
[2019-01-19] MEDS: HYDROcodone/APAP 7.5-325MG 1 EACH TAB PO PRN (20:20)
[2019-01-19] MEDS ORDERED: POTASSIUM CHLORIDE ER 20 MEQ TAB.ER PO STA (21:30)
[2019-01-19] MEDS ORDERED: HYDROcodone/APAP 5-325MG 1 EACH TAB PO PRN (21:32)
[2019-01-19] MEDS ORDERED: MORPHINE SULFATE 2 MG/ML SYRINGE IV PRN (21:32)
[2019-01-19] MEDS ORDERED: ACETAMINOPHEN TAB 325 MG TAB PO PRN (21:32)
[2019-01-19 22:19] VITALS: BMI 27.8
[2019-01-19] MEDS: LORazepam 1 MG TAB PO SCH (22:21)
[2019-01-19] MEDS: APIXABAN 2.5 MG TABLET PO SCH (22:21)
[2019-01-19] MEDS: MIRTAZAPINE 15 MG TAB PO SCH (22:21)
[2019-01-20 03:14] LABS: Calcium 9.3 mg/dL (8.4-10.2); Potassium 3.5 mmol/L (3.5-5.1)
[2019-01-20] MEDS ORDERED: METOPROLOL TARTRATE 25 MG TAB PO SCH (09:00)
[2019-01-20] MEDS: APIXABAN 2.5 MG TABLET PO SCH ×2 (09:23→21:30)
[2019-01-20] MEDS: RALOXIFENE 60 MG TAB PO SCH (09:23)
[2019-01-20] MEDS ORDERED: POTASSIUM CHLORIDE ER 20 MEQ TAB.ER PO STA (10:34)
--- NOTE | 2019-01-20 10:35 | P.PN ---
Subjective Progress Note Date: 01/20/19 Principal diagnosis: Atrial fibrillation, troponin elevation Patient was seen and examined. No acute events overnight. Patient states that her breathing has gotten slightly worse overnight. She complains of palpitations this morning. She denies any chest pain. No nausea or vomiting. No fever or chills. Tolerating breakfast this morning. Objective - Vital Signs Vital signs: Vital Signs Temp 97.6 F 01/19/19 22:03 Pulse 87 01/20/19 06:06 Resp 16 01/20/19 06:06 BP 117/66 01/20/19 06:06 Pulse Ox 97 01/20/19 06:06 Intake & Output 01/19/19 01/20/19 01/20/19 18:59 06:59 18:59 Intake Total 180 Balance 180 Weight 72.756 kg 71.4 kg Intake: Oral 180 Other: # Voids 1 - Exam General: [non toxic], [no distress], [appears at stated age] Derm: [warm], [dry] Head: [atraumatic], [normocephalic], [symmetric] Eyes: [EOMI], [no lid lag], [anicteric sclera] Mouth: [no lip lesion], [mucus membranes moist] Cardiovascular: [S1S2 reg], [irregularly irregular], [positive DP pulse bilateral] Lungs: [CTA bilateral], [no rhonchi, no rales] , [no accessory muscle use] Abdominal: [soft], [ nontender to palpation], [no guarding], [no appreciable organomegaly] Ext: [no gross muscle atrophy], [no edema], [no contractures] Neuro: [no focal neuro deficits] Psych: [Alert], [oriented], [appropriate affect] - Labs CBC & Chem 7: 01/19/19 14:27 01/20/19 02:48 Labs: Abnormal Lab Results - Last 24 Hours (Table) 01/19/19 01/19/19 01/19/19 Range/Units 14:27 14:27 20:46 Potassium 3.4 L (3.5-5.1) mmol/L BUN 27 H (7-17) mg/dL Creatinine 1.13 H (0.52-1.04) mg/dL Glucose 114 H (74-99) mg/dL Troponin I 0.044 H* 0.044 H* (0.000-0.034) ng/mL LDL Cholesterol, Calc (0-99) mg/dL 01/20/19 01/20/19 Range/Units 02:48 02:48 Potassium (3.5-5.1) mmol/L BUN 29 H (7-17) mg/dL Creatinine 1.17 H (0.52-1.04) mg/dL Glucose 112 H (74-99) mg/dL Troponin I 0.041 H* (0.000-0.034) ng/mL LDL Cholesterol, Calc 117 H (0-99) mg/dL Assessment and Plan Assessment: Assessment and Plan 1. Shortness of breath likely secondary to atrial fibrillation with RVR 2. Troponin elevation 3. Atrial fibrillation 4. Hypertension 5. Acute kidney injury 6. Hypokalemia 7. Hyperlipidemia Chest x-ray negative. BNP 3810, echocardiogram in the past showing EF 55-60% with moderate LVH. Troponin 0.044 x 2, 0.041 with EKG showing atrial fibrillation. Plan: ACS ruled out. Follow-up echocardiogram. Ensure that rate is controlled. Troponin 0.044 x 2, 0.041, with EKG showing atrial fibrillation. Likely demand ischemia. Plan: ACS ruled out. Follow cardiology consult. Restart metoprolol. Telemetry monitoring. Heart rate as high as 140s and ED. Plan: Telemetry monitoring. Continue metoprolol. Continue Eliquis. Ensure potassium greater than 4 and magnesium greater than 2. Follow echocardiogram, cardiology consult. BP 117/66. Continue metoprolol. Monitor vitals, adjust medications as necessary. BUN 27-29, creatinine 1.13-1.17. Possibly on CKD. Plan: Avoid nephrotoxins. Daily BMP. Encourage hydration by mouth. Hold Lasix. Potassium 3.4-3.5. Plan: Replace by mouth. Lipid panel shows LDL of 117. Plan: Start Lipitor. Patient admitted for shortness of breath and elevated troponins. Likely secondary to atrial fibrillation with RVR. Cardiology consulted, echocardiogram obtained. Patient is pending clinical improvement. Possible DC in 1-2 days.
--- NOTE | 2019-01-20 11:11 | ECHOF ---
Referral Reason:CHF MEASUREMENTS -------- HEIGHT: 160.0 cm WEIGHT: 71.2 kg BP: 117/66 IVSd: 1.4 cm (0.6 - 1.1) LVIDd: 2.9 cm (3.9 - 5.3) LVPWd: 1.6 cm (0.6 - 1.1) IVSs: 1.8 cm LVIDs: 1.5 cm LVPWs: 2.1 cm LAESV Index (A-L): 36.87 ml/m Ao Diam: 2.8 cm (2.0 - 3.7) AV Cusp: 1.2 cm (1.5 - 2.6) LA Diam: 3.0 cm (2.7 - 3.8) MV EXCURSION: 16.659 mm (> 18.000) MV EF SLOPE: 137 mm/s (70 - 150) EPSS: 0.5 cm AR PHT: 334 ms RAP: 5.00 mmHg RVSP: 21.47 mmHg FINDINGS -------- Atrial fibrillation. This was a technically adequate study. The left ventricular size is normal. There is moderate concentric left ventricular hypertrophy. O verall left ventricular systolic function is normal with, an EF between 55 - 60 %. The right ventricle is normal in size. LA is moderately dilated 34-39 ml/m2 The right atrial size is normal. Interatrial and interventricular septum intact. Aortic valve is trileaflet and is mildly thickened. There is moderate aortic regurgitation. The mitral valve leaflets are mildly thickened. Mild mitral annular calcification present. Modera te mitral regurgitation is present. Mild tricuspid regurgitation present. The right ventricular systolic pressure, as measured by Doppl er, is 21.47mmHg. There is no pulmonic regurgitation present. The aortic root size is normal. Normal inferior vena cava with normal inspiratory collapse consistent with estimated right atrial pre ssure of 5 mmHg. There is no pericardial effusion. CONCLUSIONS -------- 1. Atrial fibrillation. 2. This was a technically adequate study. 3. The left ventricular size is normal. 4. There is moderate concentric left ventricular hypertrophy. 5. Overall left ventricular systolic function is normal with, an EF between 55 - 60 %. 6. The right ventricle is normal in size. 7. LA is moderately dilated 34-39 ml/m2 8. The right atrial size is normal. 9. Interatrial and interventricular septum intact. 10. Aortic valve is trileaflet and is mildly thickened. 11. There is moderate aortic regurgitation. 12. The mitral valve leaflets are mildly thickened. 13. Mild mitral annular calcification present. 14. Moderate mitral regurgitation is present. 15. Mild tricuspid regurgitation present. 16. The right ventricular systolic pressure, as measured by Doppler, is 21.47mmHg. 17. There is no pulmonic regurgitation present. 18. The aortic root size is normal. 19. Normal inferior vena cava with normal inspiratory collapse consistent with estimated right atrial pressure of 5 mmHg. 20. There is no pericardial effusion. [employer] ATTENDANT: Olga Justin RDCS
--- NOTE | 2019-01-20 11:30 | P.CRDCN ---
History of Present Illness Consult date: 01/20/19 Requesting physician: Manasa Chowdhury Consult reason: atrial fibrillation, shortness of breath Chief complaint: Shortness of breath History of present illness: This is an 88-year-old female who follows with Dr. Travis Caldwell in the office, she has a past medical history significant for hypertension, paroxysmal atrial fibrillation, hypertension. She presented to the hospital with symptoms of worsening shortness of breath over a 2 day duration. According to the patient, at times she finds it very difficult to breathe, then the symptoms seemed to dissipate and shortly thereafter she again feels like it's extremely difficult to breathe. Patient also complains of feeling very weak. She has experienced a fall approximately 3 days ago, she states that her legs give out on her because her knees buckled at that time, she denies any syncope . Patient also admits to being very depressed since her approximately a year ago. Her EKG on arrival here showed atrial fibrillation with a heart rate in the 80s. Chest x-ray did not reveal any acute cardiopulmonary process. Previously identified subpleural nodule seen. Blood pressure 127/80, heart rate presently in the 80s, earlier this morning patient states it was harder to breathe today than it was yesterday, it was noted at that time that her heart rate was up in the 120 range on the monitor. It appears that when her atrial fibrillation rate goes fast that the patient has difficulty breathing, once her heart rate is regulated her breathing seems to be more stable. CBC is normal, sodium 139, potassium 3.5, BUN 29 and creatinine 1.1. Magnesium level 2.0. BNP level 3810, troponins 0.04, 0.04, 0.04. Patient's home medications include potassium, Lopressor 25 mg in the morning, Lasix 40 mg daily and Eliquis 2-1/2 twice a day. Past Medical History Past Medical History: Atrial Fibrillation, Eye Disorder, Hypertension, Musculoskeletal Disorder, Osteoarthritis (OA) Additional Past Medical History / Comment(s): has lt eye cataract, uses cane when up. History of Any Multi-Drug Resistant Organisms: None Reported Past Surgical History: Appendectomy, Back Surgery, Section, Joint Replacement, Tubal Ligation Additional Past Surgical History / Comment(s): left knee & left shoulder replaced, back surg. x 2, rt eye cataract removed-has lens implant, 1 upper dental implant. Past Anesthesia/Blood Transfusion Reactions: Postoperative Nausea & Vomiting (PONV) Additional Past Anesthesia/Blood Transfusion Reaction / Comment(s): no hx blood transfusion Past Psychological History: Anxiety, Depression Smoking Status: Former smoker Past Alcohol Use History: None Reported Additional Past Alcohol Use History / Comment(s): started smoking at age 12 smoked 1/2 ppd and quit 1966. Past Drug Use History: None Reported - Past Family History Sister(s) Family Medical History: Cancer Mother Family Medical History: Coronary Artery Disease (CAD) Additional Family Medical History / Comment(s): "heart problems" Father Additional Family Medical History / Comment(s): alcoholic Medications and Allergies Home Medications Medication Instructions Recorded Confirmed Type HYDROcodone/APAP 7.5-325MG [[place] 1 tab PO TID PRN 10/24/15 01/19/19 History 7.5-325] Raloxifene [Evista] 60 mg PO DAILY 10/24/15 01/19/19 History LORazepam [Ativan] 1 mg PO HS 05/31/18 01/19/19 History Apixaban [Eliquis] 2.5 mg PO BID #60 tablet 06/09/18 01/19/19 Rx Mirtazapine [Remeron] 7.5 mg PO HS #30 tab 06/09/18 01/19/19 Rx Furosemide [Lasix] 40 mg PO QAM 11/10/18 01/19/19 History Metoprolol Tartrate [Lopressor] 25 mg PO QAM 11/10/18 01/19/19 History Potassium Chloride [K-Tab ER] 10 meq PO DAILY 11/10/18 01/19/19 History Allergies Allergy/AdvReac Type Severity Reaction Status Date / Time No Known Allergies Allergy Verified 01/19/19 13:36 Physical Exam Vitals: Vital Signs Temp Pulse Pulse Resp BP BP Pulse Ox 01/20/19 08:00 87 20 139/77 93 L 01/20/19 06:06 87 16 117/66 97 01/19/19 22:03 97.6 F 71 16 132/69 97 01/19/19 21:16 78 16 102/76 98 01/19/19 20:28 110 H 20 127/87 100 01/19/19 17:00 98.0 F 108 H 20 126/77 98 01/19/19 13:22 97.9 F 88 24 132/78 98 Intake and Output 01/19/19 01/20/19 01/20/19 22:59 06:59 14:59 Intake Total 180 Balance 180 Intake: Oral 180 Other: # Voids 1 Weight 71.4 kg PHYSICAL EXAMINATION: GENERAL: 88-year-old female in no acute distress at the time of my examination HEENT: Head is atraumatic, normocephalic. Pupils equal, round. Sclera anicteric. Conjunctiva are clear. Mucous membranes of the mouth are moist. Neck is supple. There is no elevated jugular venous pressure. No carotid bruit is heard. HEART EXAMINATION: Heart S1 and S2 irregularly irregular a systolic murmur is heard CHEST EXAMINATION: Lungs are clear to auscultation and precussion. No chest wall tenderness is noted on palpation or with deep breathing. ABDOMEN: Soft, nontender. Bowel sounds are heard. No organomegaly noted. EXTREMITIES: 2+ peripheral pulses with no evidence of peripheral edema and no calf tenderness noted. NEUROLOGIC patient is awake, alert and oriented 3 . . Results 01/19/19 14:27 01/20/19 02:48 Cardiac Enzymes 01/19/19 01/19/19 01/19/19 Range/Units 14:27 14:27 20:46 AST 20 (14-36) U/L Troponin I 0.044 H* 0.044 H* (0.000-0.034) ng/mL 01/20/19 Range/Units 02:48 AST (14-36) U/L Troponin I 0.041 H* (0.000-0.034) ng/mL Coagulation 01/19/19 Range/Units 14:27 PT 10.6 (9.0-12.0) sec APTT 24.4 (22.0-30.0) sec Lipids 01/20/19 Range/Units 02:48 Triglycerides 106 (<150) mg/dL Cholesterol 179 (<200) mg/dL HDL Cholesterol 41 (40-60) mg/dL CBC 01/19/19 Range/Units 14:27 WBC 8.9 (3.8-10.6) k/uL RBC 4.94 (3.80-5.40) m/uL Hgb 15.0 (11.4-16.0) gm/dL Hct 44.6 (34.0-46.0) % Plt Count 309 (150-450) k/uL Comprehensive Metabolic Panel 01/19/19 01/20/19 Range/Units 14:27 02:48 Sodium 142 139 (137-145) mmol/L Potassium 3.4 L 3.5 (3.5-5.1) mmol/L Chloride 100 103 (98-107) mmol/L Carbon Dioxide 30 27 (22-30) mmol/L BUN 27 H 29 H (7-17) mg/dL Creatinine 1.13 H 1.17 H (0.52-1.04) mg/dL Glucose 114 H 112 H (74-99) mg/dL Calcium 10.0 9.3 (8.4-10.2) mg/dL AST 20 (14-36) U/L ALT 28 (9-52) U/L Alkaline Phosphatase 67 (38-126) U/L Total Protein 7.5 (6.3-8.2) g/dL Albumin 4.6 (3.5-5.0) g/dL Current Medications Generic Name Dose Route Start Last Admin Trade Name Freq PRN Reason Stop Dose Admin Acetaminophen 650 mg 01/19/19 21:32 Tylenol Tab PO Q6HR PRN Mild Pain or Fever > 100.5 Hydrocodone Bitart/Acetaminophen 1 each 01/19/19 18:55 01/19/19 20:20 [place] 7.5-325 PO 1 each TID PRN Administration Pain Hydrocodone Bitart/Acetaminophen 1 each 01/19/19 21:32 [place] 5-325 PO Q4HR PRN Moderate Pain Apixaban 2.5 mg 01/19/19 21:00 01/20/19 09:23 Eliquis PO 2.5 mg BID DAXA Administration Atorvastatin Calcium 20 mg 01/20/19 21:00 Lipitor PO HS DAXA Lorazepam 1 mg 01/19/19 21:00 01/19/19 22:21 Ativan PO 1 mg HS DAXA Administration Metoprolol Tartrate 25 mg 01/20/19 09:00 01/20/19 09:23 Lopressor PO 25 mg QAM DAXA Administration Mirtazapine 7.5 mg 01/19/19 21:00 01/19/19 22:21 Remeron PO 7.5 mg HS DAXA Administration Morphine Sulfate 2 mg 01/19/19 21:32 Morphine Sulfate (Inj) IV Q4HR PRN Severe Pain Naloxone HCl 0.2 mg 01/19/19 16:22 Narcan IV Q2M PRN Opioid Reversal Raloxifene HCl 60 mg 01/20/19 09:00 01/20/19 09:23 [place] PO 60 mg DAILY DAXA Administration Intake and Output 01/19/19 01/20/19 01/20/19 22:59 06:59 14:59 Intake Total 180 Balance 180 Intake: Oral 180 Other: # Voids 1 Weight 71.4 kg 01/19/19 14:27 01/20/19 02:48 EKG Interpretations (text) EKG shows atrial fibrillation with a controlled ventricular response Assessment and Plan Plan: Assessment and plan #1 symptoms of shortness of breath, appears to be secondary to A. fib with RVR, no overt evidence of congestive cardiac failure #2 paroxysmal atrial fibrillation #3 hypertension #4 hypokalemia #5 abnormality in troponin, not consistent with acute coronary syndrome, likely secondary to atrial fibrillation with rapid ventricular response Plan Patient had an echocardiogram with Doppler study performed which revealed an ejection fraction of 55-60%. We will increase the dose of beta lily, continue anticoagulation, replace potassium. Check TSH level. Further recommendations to follow. DNP note has been reviewed, I agree with a documented findings and plan of care. Patient was seen and examined.
[2019-01-20] MEDS: HYDROcodone/APAP 7.5-325MG 1 EACH TAB PO PRN (12:45)
[2019-01-20] MEDS ORDERED: ATORVASTATIN 20 MG TAB PO SCH (21:00)
[2019-01-20] MEDS: METOPROLOL TARTRATE 25 MG TAB PO SCH (21:30)
[2019-01-20] MEDS: MIRTAZAPINE 15 MG TAB PO SCH (21:31)
[2019-01-20] MEDS: LORazepam 1 MG TAB PO SCH (21:31)
[2019-01-21 00:30] VITALS: RESP 17
[2019-01-21] MEDS: APIXABAN 2.5 MG TABLET PO SCH (09:00)
[2019-01-21] MEDS: METOPROLOL TARTRATE 25 MG TAB PO SCH (09:00)
[2019-01-21] MEDS: RALOXIFENE 60 MG TAB PO SCH (09:00)
--- NOTE | 2019-01-21 10:12 | P.PN ---
Subjective Progress Note Date: 01/21/19 Principal diagnosis: Paroxysmal atrial fibrillation This is a pleasant 88-year-old female patient who sees Dr. Caldwell in the office as an outpatient with a past medical history significant for paroxysmal atrial fibrillation, hypertension, and dyslipidemia, who presented to the hospital with shortness of breath for 2 days and was found to be in atrial fibrillation with RVR. She underwent an echocardiogram which revealed normal LV function was moderate MR. On follow-up with her today, she is feeling better indeterminable shortness of breath. She has been in and out atrial fibrillation and once she is in atrial fibrillation her heart rate has been in the 90s. The blood pressure seems to be within normal limits. I'm going to increase the dose of metoprolol. From the cardiac standpoint of view, the patient can be discharged home. Objective - Vital Signs Vital signs: Vital Signs Temp 97.5 F L 01/21/19 08:20 Pulse 82 01/21/19 08:20 Resp 17 01/21/19 08:20 BP 119/71 01/21/19 08:20 Pulse Ox 100 01/21/19 08:20 Intake & Output 01/20/19 01/21/19 01/21/19 18:59 06:59 18:59 Intake Total 540 250 480 Output Total 400 400 Balance 140 250 80 Weight 71.4 kg 72.8 kg Intake: IV 10 0.9 10 Oral 540 240 480 Output: Urine 400 400 Other: Voiding Method Toilet # Voids 1 4 - Constitutional General appearance: Present: no acute distress - Respiratory Respiratory: bilateral: CTA - Cardiovascular Rhythm: irregularly irregular Heart sounds: normal: S1, S2 - Labs CBC & Chem 7: 01/19/19 14:27 01/20/19 02:48 Assessment and Plan Assessment: Assessment #1 paroxysmal atrial fibrillation #2 hypertension #3 mildly abnormal cardiac enzymes Plan #1 increase the dose of metoprolol #2 the patient can be discharged home
[2019-01-21 12:36] VITALS: BP 114/73; PULSE 70; TEMP 97.6
--- NOTE | 2019-01-21 12:45 | P.DS ---
Providers Date of admission: 01/19/19 16:22 Expected date of discharge: 01/21/19 Attending physician: Manasa Chowdhury MD Consults: 01/19/19 16:23 Consult Physician Routine Consulting Provider: Perry Acevedo Consult Reason/Comments: CHF Do you want consulting provider notified?: Yes Primary care physician: [facility] Course: -year-old female with PMH of atrial fibrillation, hypertension presents the ED for shortness of breath. Patient reports progressive shortness of breath that has been worsening over the past 2 days. Patient initially reported dyspnea intermittently but has become more constant recently. She also reports generalized weakness at this time. She denies any orthopnea or lower extremity edema. Patient reports falling 3 days ago, states that her knee buckled, denied any loss of consciousness. She also reports some chest pressure at this time. Patient denies any headaches, lower extremity edema, nausea, vomiting, fever, cough, chest pain, palpitations, changes in urination or bowel habits. Patient does report a decrease in appetite. Patient reports feeling depressed since loss of her less than one year ago. In the ED, patient's vital signs are stable except for heart rate which ranged from 88 to 140s on telemetry. CBC was unremarkable. Correlation thousand negative. CMP showed a potassium of 3.4, BUN of 27 and creatinine 1.13. Troponin was 0.044. BNP was 3810. Chest x-ray was negative. Patient is admitted for shortness of breath and elevated troponins, cardiology on consult. Her shortness of breath was thought to be secondary to atrial fibrillation with RVR. Chest x-ray was negative. BNP was 3810. Troponin was 0.0442, 0.041 with EKG showing atrial fibrillation, ACS was ruled out. Cardiology was consulted and recommended increasing metoprolol. Cardiology recommended echocardiogram which showed EF 55-60% with moderate LVH. Patient was seen and examined. No acute events overnight. Patient reports improvement in her breathing since admission. She was able to shower this morning with the help of a walker. Patient denies any dizziness, chest pain, shortness of breath or palpitations. No nausea or vomiting. No fever or chills. Requesting to go home. General: [non toxic], [no distress], [appears at stated age] Derm: [warm], [dry] Head: [atraumatic], [normocephalic], [symmetric] Eyes: [EOMI], [no lid lag], [anicteric sclera] Mouth: [no lip lesion], [mucus membranes moist] Cardiovascular: [S1S2 reg], [irregularly irregular], [positive DP pulse bilateral] Lungs: [CTA bilateral], [no rhonchi, no rales] , [no accessory muscle use] Abdominal: [soft], [ nontender to palpation], [no guarding], [no appreciable organomegaly] Ext: [no gross muscle atrophy], [no edema], [no contractures] Neuro: [no focal neuro deficits] Psych: [Alert], [oriented], [appropriate affect] Assessment and Plan 1. Shortness of breath likely secondary to atrial fibrillation with RVR 2. Troponin elevation 3. Atrial fibrillation 4. Hypertension 5. Acute kidney injury 6. Hypokalemia 7. Hyperlipidemia Chest x-ray negative. BNP 3810, echocardiogram in the past showing EF 55-60% with moderate LVH. Repeat echocardiogram is similar to previous echo. Troponin 0.044 x 2, 0.041 with EKG showing atrial fibrillation. Plan: ACS ruled out. Ensure that rate is controlled. Follow cardiology consult. Troponin 0.044 x 2, 0.041, with EKG showing atrial fibrillation. Likely demand ischemia. Plan: ACS ruled out. Follow cardiology consult. Restart metoprolol. Telemetry monitoring. Heart rate as high as 140s and ED. Plan: Telemetry monitoring. Continue metoprolol. Continue Eliquis. Ensure potassium greater than 4 and magnesium greater than 2. Cardiology recommends DC home. BP 114/73. Continue metoprolol. Monitor vitals, adjust medications as necessary. BUN 27-29, creatinine 1.13-1.17. Possibly on CKD. Plan: Avoid nephrotoxins. Daily BMP. Encourage hydration by mouth. Hold Lasix. Potassium 3.4-3.5. Plan: Resolved Lipid panel shows LDL of 117. Plan: Start Lipitor. Patient has shown significant improvement and is requesting to go home. She has been cleared by cardiology. PT is evaluated the patient and recommended subacute rehab but patient states that she would rather go home with home PT. She does have a walker at home. Her children live close by. Will discharge patient today. Close follow-up with PCP and cardiology within 1 week. Pertinent Studies: Chest x-ray, echocardiogram Patient Condition at Discharge: Stable Plan - Discharge Summary Discharge Rx Participant: Yes New Discharge Prescriptions: New Atorvastatin [Lipitor] 20 mg PO HS #30 tab Metoprolol Tartrate [Lopressor] 25 mg PO TID #90 tab Continue Raloxifene [Evista] 60 mg PO DAILY HYDROcodone/APAP 7.5-325MG [[place] 7.5-325] 1 tab PO TID PRN PRN Reason: Pain LORazepam [Ativan] 1 mg PO HS Apixaban [Eliquis] 2.5 mg PO BID #60 tablet Mirtazapine [Remeron] 7.5 mg PO HS #30 tab Potassium Chloride [K-Tab ER] 10 meq PO DAILY Furosemide [Lasix] 40 mg PO QAM Discontinued Metoprolol Tartrate [Lopressor] 25 mg PO QAM Discharge Medication List HYDROcodone/APAP 7.5-325MG [[place] 7.5-325] 1 tab PO TID PRN 10/24/15 [History] Raloxifene [Evista] 60 mg PO DAILY 10/24/15 [History] LORazepam [Ativan] 1 mg PO HS 05/31/18 [History] Apixaban [Eliquis] 2.5 mg PO BID #60 tablet 06/09/18 [Rx] Mirtazapine [Remeron] 7.5 mg PO HS #30 tab 06/09/18 [Rx] Furosemide [Lasix] 40 mg PO QAM 11/10/18 [History] Potassium Chloride [K-Tab ER] 10 meq PO DAILY 11/10/18 [History] Atorvastatin [Lipitor] 20 mg PO HS #30 tab 01/21/19 [Rx] Metoprolol Tartrate [Lopressor] 25 mg PO TID #90 tab 01/21/19 [Rx] Follow up Appointment(s)/Referral(s): Quinn Dailey MD [Primary Care Provider] - 1-2 days Veronica Caldwell MD [STAFF PHYSICIAN] - 02/06/19 1:15 pm () Ambulatory/Diagnostic Orders: Basic Metabolic Panel [LAB.AMB] Time Frame: 3 Days, Location: None Selected Patient Instructions/Handouts: Heart Failure (DC), Low-Sodium Diet (DC) Activity/Diet/Wound Care/Special Instructions: Diet: Heart healthy Follow-up with PCP within 1-2 days of discharge. Follow-up with cardiology with the appointment given to you. Take all medications as advised. Discharge Disposition: HOME SELF-CARE
[2019-01-21] MEDS ORDERED: METOPROLOL TARTRATE 25 MG TAB PO SCH (16:00)
== END 2019-01-21 14:09 | disposition home or self-care (01) ==
LOC: EC 12:48 → 3SCARD 16:22
PROVIDERS: ADMIT Family Medicine; ATTEND Family Medicine
DX: I48.0 Paroxysmal atrial fibrillation (principal); I11.0 Hypertensive heart disease with heart failure; I50.9 Heart failure, unspecified; R06.02 Shortness of breath; R77.8 Other specified abnormalities of plasma proteins; E78.5 Hyperlipidemia, unspecified; E87.6 Hypokalemia; F32.9 Major depressive disorder, single episode, unspecified; F41.9 Anxiety disorder, unspecified; H26.9 Unspecified cataract; N17.9 Acute kidney failure, unspecified; E66.9 Obesity, unspecified; Z68.28 Body mass index [BMI] 28.0-28.9, adult; Z96.612 Presence of left artificial shoulder joint; Z96.652 Presence of left artificial knee joint; Z87.891 Personal history of nicotine dependence; Z96.5 Presence of tooth-root and mandibular implants; Z98.51 Tubal ligation status; Z79.01 Long term (current) use of anticoagulants; W19.XXXA Unspecified fall, initial encounter; Z79.899 Other long term (current) drug therapy; Z82.49 Family history of ischemic heart disease and other diseases of the circulatory system
CPT/HCPCS: 96374; 99285; 36415; 93005; 93306; 97162; 83880; 80061; 80053; 80048; 83735 ×2; 84443; 84484 ×2; 85025; 85610; 85730; 81003; 71046; G0378 ×3; J1940

== ENCOUNTER 2019-07-09 11:48 | Inpatient (IN) | payer MEDICARE, BC ==
[2019-07-09] MEDS ORDERED: LORazepam 2 MG/ML INJ IV STA (12:15)
[2019-07-09] MEDS ORDERED: SODIUM CHLORIDE 0.9% 500 ML 500 ML IV STA (12:15)
--- NOTE | 2019-07-09 12:40 | ED ---
General Adult HPI - General Chief complaint: Weakness Stated complaint: WEAKNESS, BRUCE Time Seen by Provider: 07/09/19 12:00 Source: patient, family, RN notes reviewed Mode of arrival: ambulatory Limitations: no limitations - History of Present Illness Initial comments: This is an 89-year-old female presents to the emergency department complaining of weakness for the last 2 or 3 weeks. Son states that the patient's 1 year ago and since then she's been very depressed and anxious. Patient denies any headache she denies any numbness or focal weakness. Patient denies any chest pain or palpitations. Patient denies any shortness of breath or difficulty breathing. Patient denies any abdominal pain patient denies nausea vomiting diarrhea. Patient denies any recent injury or trauma. Patient denies any dysuria hematuria urinary frequency. - Related Data Home Medications Medication Instructions Recorded Confirmed Raloxifene [Evista] 60 mg PO DAILY 10/24/15 07/09/19 LORazepam [Ativan] 1 mg PO HS 05/31/18 07/09/19 Furosemide [Lasix] 40 mg PO QAM 11/10/18 07/09/19 Potassium Chloride [K-Tab ER] 20 meq PO Q48H 11/10/18 07/09/19 Atorvastatin [Lipitor] 20 mg PO Q48H 07/09/19 07/09/19 Metoprolol Tartrate [Lopressor] 50 mg PO BID 07/09/19 07/09/19 Previous Rx's Medication Instructions Recorded Apixaban [Eliquis] 2.5 mg PO BID #60 tablet 06/09/18 Allergies Allergy/AdvReac Type Severity Reaction Status Date / Time No Known Allergies Allergy Verified 07/09/19 12:57 Review of Systems ROS Statement: Those systems with pertinent positive or pertinent negative responses have been documented in the HPI. ROS Other: All systems not noted in ROS Statement are negative. Past Medical History Past Medical History: Atrial Fibrillation, Eye Disorder, Hypertension, Musculoskeletal Disorder, Osteoarthritis (OA) Additional Past Medical History / Comment(s): has lt eye cataract, uses cane when up. History of Any Multi-Drug Resistant Organisms: None Reported Past Surgical History: Appendectomy, Back Surgery, Section, Joint Replacement, Tubal Ligation Additional Past Surgical History / Comment(s): left knee & left shoulder replaced, back surg. x 2, rt eye cataract removed-has lens implant, 1 upper dental implant. Past Anesthesia/Blood Transfusion Reactions: Postoperative Nausea & Vomiting (PONV) Additional Past Anesthesia/Blood Transfusion Reaction / Comment(s): no hx blood transfusion Past Psychological History: Anxiety, Depression Smoking Status: Former smoker Past Alcohol Use History: None Reported Past Drug Use History: None Reported - Past Family History Sister(s) Family Medical History: Cancer Mother Family Medical History: Coronary Artery Disease (CAD) Additional Family Medical History / Comment(s): "heart problems" Father Additional Family Medical History / Comment(s): alcoholic General Exam - General Exam Comments Initial Comments: GENERAL: Patient is well-developed and well-nourished. Patient is nontoxic and well- hydrated and is in no acute distress. ENT: Neck is soft and supple. No significant lymphadenopathy is noted. Oropharynx is clear. Moist mucous membranes. Neck has full range of motion without eliciting any pain. There is no thyroid enlargement and no masses were felt. EYES: The sclera were anicteric and conjunctiva were pink and moist. Extraocular movements were intact and pupils were equal round and reactive to light. Eyelids were unremarkable. PULMONARY: Unlabored respirations. Good breath sounds bilaterally. No audible rales rhonchi or wheezing was noted. CARDIOVASCULAR: Patient is tachycardic and has an irregular heartbeat. ABDOMEN: Soft and nontender with normal bowel sounds. No palpable organomegaly was noted. There is no palpable pulsatile mass. SKIN: Skin is clear with no lesions or rashes and otherwise unremarkable. NEUROLOGIC: Patient is alert and oriented x3. Cranial nerves II through XII are grossly intact. Motor and sensory are also intact. Normal speech, volume and content. Symmetrical smile. Cerebellar exam grossly intact. MUSCULOSKELETAL: Normal extremities with adequate strength and full range of motion. No lower extremity swelling or edema. No calf tenderness. LYMPHATICS: No significant lymphadenopathy is noted PSYCHIATRIC: Normal psychiatric evaluation. Normal interpersonal interactions appears functionally intact in deals appropriately with others. No signs of depression. No signs of anxiety. No delusions. No hallucinations. Limitations: no limitations Course Vital Signs 07/09/19 07/09/19 07/09/19 12:00 12:28 12:30 Temperature 97.5 F L Pulse Rate 77 131 H Respiratory 18 23 Rate Blood Pressure 125/83 127/80 127/80 O2 Sat by Pulse 99 64 L Oximetry 07/09/19 07/09/19 07/09/19 12:40 12:50 13:00 Temperature Pulse Rate 123 H 126 H 140 H Respiratory 20 15 20 Rate Blood Pressure 117/99 117/99 117/99 O2 Sat by Pulse 97 98 99 Oximetry 07/09/19 07/09/19 13:20 13:40 Temperature Pulse Rate 116 H 120 H Respiratory 25 H 21 Rate Blood Pressure 89/66 100/85 O2 Sat by Pulse 98 97 Oximetry Medical Decision Making - Medical Decision Making EKG shows atrial fibrillation at a rate of 140 beats a minute QRS is 96 QT i nterval 348 QTC is 531. Patient's EKG shows no ST segment elevation or depression. Chest x-ray shows no acute abnormality Patient's heart rate was 140 and irregular so started the patient on a Cardizem drip. I spoke with some physicians agreed to admit the patient admitted the patient I continued Cardizem on the floor. I consult cardiology. - Lab Data Result diagrams: 07/09/19 12:45 07/09/19 12:45 Lab Results 07/09/19 07/09/19 07/09/19 Range/Units 12:21 12:45 12:45 WBC 8.9 (3.8-10.6) k/uL RBC 4.69 (3.80-5.40) m/uL Hgb 14.4 (11.4-16.0) gm/dL Hct 44.5 (34.0-46.0) % MCV 94.9 (80.0-100.0) fL MCH 30.8 (25.0-35.0) pg MCHC 32.4 (31.0-37.0) g/dL RDW 14.1 (11.5-15.5) % Plt Count 280 (150-450) k/uL Neutrophils % 80 % Lymphocytes % 11 % Monocytes % 6 % Eosinophils % 2 % Basophils % 1 % Neutrophils # 7.1 (1.3-7.7) k/uL Lymphocytes # 1.0 (1.0-4.8) k/uL Monocytes # 0.5 (0-1.0) k/uL Eosinophils # 0.2 (0-0.7) k/uL Basophils # 0.1 (0-0.2) k/uL PT (9.0-12.0) sec INR (<1.2) APTT (22.0-30.0) sec Sodium 144 (137-145) mmol/L Potassium 3.9 (3.5-5.1) mmol/L Chloride 105 (98-107) mmol/L Carbon Dioxide 28 (22-30) mmol/L Anion Gap 11 mmol/L BUN 34 H (7-17) mg/dL Creatinine 1.16 H (0.52-1.04) mg/dL Est GFR (CKD-EPI)AfAm 48 (>60 ml/min/1.73 sqM) Est GFR (CKD-EPI)NonAf 42 (>60 ml/min/1.73 sqM) Glucose 120 H (74-99) mg/dL Calcium 9.6 (8.4-10.2) mg/dL Magnesium 2.1 (1.6-2.3) mg/dL Total Bilirubin 0.7 (0.2-1.3) mg/dL AST 33 (14-36) U/L ALT 53 H (9-52) U/L Alkaline Phosphatase 58 (38-126) U/L Troponin I (0.000-0.034) ng/mL Total Protein 6.7 (6.3-8.2) g/dL Albumin 4.1 (3.5-5.0) g/dL Urine Color Light Yellow Urine Appearance Clear (Clear) Urine pH 7.0 (5.0-8.0) Ur Specific [place] 1.007 (1.001-1.035) Urine Protein Negative (Negative) Urine Glucose (UA) Negative (Negative) Urine Ketones Negative (Negative) Urine Blood Negative (Negative) Urine Nitrite Negative (Negative) Urine Bilirubin Negative (Negative) Urine Urobilinogen <2.0 (<2.0) mg/dL Ur Leukocyte Esterase Trace H (Negative) Urine RBC 1 (0-5) /hpf Urine WBC 3 (0-5) /hpf 07/09/19 07/09/19 Range/Units 12:45 12:45 WBC (3.8-10.6) k/uL RBC (3.80-5.40) m/uL Hgb (11.4-16.0) gm/dL Hct (34.0-46.0) % MCV (80.0-100.0) fL MCH (25.0-35.0) pg MCHC (31.0-37.0) g/dL RDW (11.5-15.5) % Plt Count (150-450) k/uL Neutrophils % % Lymphocytes % % Monocytes % % Eosinophils % % Basophils % % Neutrophils # (1.3-7.7) k/uL Lymphocytes # (1.0-4.8) k/uL Monocytes # (0-1.0) k/uL Eosinophils # (0-0.7) k/uL Basophils # (0-0.2) k/uL PT 11.9 (9.0-12.0) sec INR 1.1 (<1.2) APTT 24.9 (22.0-30.0) sec Sodium (137-145) mmol/L Potassium (3.5-5.1) mmol/L Chloride (98-107) mmol/L Carbon Dioxide (22-30) mmol/L Anion Gap mmol/L BUN (7-17) mg/dL Creatinine (0.52-1.04) mg/dL Est GFR (CKD-EPI)AfAm (>60 ml/min/1.73 sqM) Est GFR (CKD-EPI)NonAf (>60 ml/min/1.73 sqM) Glucose (74-99) mg/dL Calcium (8.4-10.2) mg/dL Magnesium (1.6-2.3) mg/dL Total Bilirubin (0.2-1.3) mg/dL AST (14-36) U/L ALT (9-52) U/L Alkaline Phosphatase (38-126) U/L Troponin I <0.012 (0.000-0.034) ng/mL Total Protein (6.3-8.2) g/dL Albumin (3.5-5.0) g/dL Urine Color Urine Appearance (Clear) Urine pH (5.0-8.0) Ur Specific [place] (1.001-1.035) Urine Protein (Negative) Urine Glucose (UA) (Negative) Urine Ketones (Negative) Urine Blood (Negative) Urine Nitrite (Negative) Urine Bilirubin (Negative) Urine Urobilinogen (<2.0) mg/dL Ur Leukocyte Esterase (Negative) Urine RBC (0-5) /hpf Urine WBC (0-5) /hpf Critical Care Time Critical Care Time: Yes Total Critical Care Time: 35 Disposition Clinical Impression: Atrial fibrillation with rapid ventricular response, Weakness Disposition: ADMITTED IP TO THIS HOSP Referrals: Quinn Dailey MD [Primary Care Provider] - 1-2 days Time of Disposition: 14:09
[2019-07-09] MEDS ORDERED: DILTIAZEM DRIP BOLUS FROM BAG 1 MG SOLN IV ONE (12:42)
[2019-07-09] MEDS: DILTIAZEM 125 MG in SODIUM CHLORIDE 0.9% 100 ML IV SCH (12:55)
[2019-07-09 12:56] LABS: Basophils # (A) 0.1 k/uL (0-0.2); Basophils % (A) 1 %; Eosinophils # (A) 0.2 k/uL (0-0.7); Eosinophils % (A) 2 %; HCT 44.5 % (34.0-46.0); HGB 14.4 gm/dL (11.4-16.0); Lymphocytes % (A) 11 %; MCH 30.8 pg (25.0-35.0); MCHC 32.4 g/dL (31.0-37.0); MCV 94.9 fL (80.0-100.0); Mean Platelet Volume 7.5; Monocytes # (A) 0.5 k/uL (0-1.0); Monocytes % (A) 6 %; Neutrophils # (A) 7.1 k/uL (1.3-7.7); Neutrophils % (A) 80 %; Platelet Count 280 k/uL (150-450); RBC 4.69 m/uL (3.80-5.40); RDW 14.1 % (11.5-15.5); WBC 8.9 k/uL (3.8-10.6)
[2019-07-09 13:06] LABS: Albumin 4.1 g/dL (3.5-5.0); Calcium 9.6 mg/dL (8.4-10.2); Magnesium 2.1 mg/dL (1.6-2.3); Potassium 3.9 mmol/L (3.5-5.1); Total Bilirubin 0.7 mg/dL (0.2-1.3); Total Protein 6.7 g/dL (6.3-8.2)
[2019-07-09 13:07] LABS: INR 1.1 (<1.2); Partial Thromboplastin Time 24.9 sec (22.0-30.0); Prothrombin Time 11.9 sec (9.0-12.0)
[2019-07-09 13:09] LABS: Appearance,Urine Clear (Clear); Bilirubin,Urine Negative (Negative); Blood,Urine Negative (Negative); Color,Urine Light Yellow; Glucose,Urine (UA) Negative (Negative); Ketones,Urine Negative (Negative); Leukocyte Esterase,Urine Trace (Negative); Nitrite,Urine Negative (Negative); Protein,Urine Negative (Negative); RBC,Urine 1 /hpf (0-5); Specific Gravity,Urine 1.007 (1.001-1.035); Urobilinogen,Urine <2.0 mg/dL (<2.0); WBC,Urine 3 /hpf (0-5)
--- NOTE | 2019-07-09 13:32 | XR ---
EXAMINATION TYPE: XR chest 2V DATE OF EXAM: 07/09/2019 HISTORY: Weakness. REFERENCE: Previous study dated 01/19/2019. FINDINGS: There is a left shoulder arthroplasty in place. The heart is mildly enlarged. There is atelectasis at the left lung base. Lungs otherwise clear. Ther e is blunting of the left CP angle. I could not exclude a small left effusion. IMPRESSION: 1. MILD CARDIOMEGALY. 2. LEFT BASILAR ATELECTASIS OR EARLY AIRSPACE DISEASE. 3. I CANNOT EXCLUDE A SMALL, LEFT EFFUSION.
[2019-07-09] MEDS ORDERED: NITROGLYCERIN SL TABS 0.4 MG TAB SUBLINGUAL PRN (14:11)
[2019-07-09 15:53] VITALS: BMI 25.4
[2019-07-09] MEDS ORDERED: NALOXONE 0.4 MG/ML 1 ML VIAL IV PRN (16:46)
--- NOTE | 2019-07-09 16:46 | P.HPIM ---
History of Present Illness H&P Date: 07/09/19 Chief Complaint: Graciela. enzo with RVR 89-year-old female with PMH of atrial fibrillation, hypertension, anxiety and depression presents to the ED for worsening shortness of breath. Patient states that she woke up this morning feeling very dyspneic. Her shortness of breath was associated with palpitations. Patient states that she took an extra Lasix dose, when it did not help this prompted the patient to come to the ED. Patient states that her exercise tolerance has been declining as of late. Patient states that she is unable to walk more than 1 block and is unable to climb 1 flight of stairs. She does deny lower extremity edema or orthopnea. No PND. Patient reports worsening depression since the passing of her 1-1/2 years ago. Patient states that she saw her PCP, was prescribed an antidepressant beginning with the letter "M" and has been taking it over the last 4 days. She does report passive suicidal ideation without any plans. She denies any auditory or visual hallucinations. Patient reports that she just wants to be with her . Patient denies any headache, nausea or vomiting, fever or chills, cough, chest pain, changes in urination or bowel habits. No changes in appetite or weight. Patient denies any dizziness, numbness/weakness /tingling of the extremities. In the ED, vital signs are stable except for pulse of 131, and irregular. CBC was unremarkable. Coagulation panel was negative. CMP showed BUN 34, creatinine 1.16. Glucose was 120 and ALT was 53. Troponin was less than 0.012, EKG showing atrial fibrillation with RVR. Chest x-ray showed left basilar atelectasis. Patient is admitted for atrial fibrillation with RVR with cardiology on consult. Review of Systems Pertinent positives and negatives as discussed in HPI, a complete review of systems was performed and all other systems are negative. Past Medical History Past Medical History: Atrial Fibrillation, Heart Failure, Eye Disorder, Hypertension, Musculoskeletal Disorder, Osteoarthritis (OA) Additional Past Medical History / Comment(s): has lt eye cataract, uses cane when up. History of Any Multi-Drug Resistant Organisms: None Reported Past Surgical History: Appendectomy, Back Surgery, Section, Joint Replacement, Tubal Ligation Additional Past Surgical History / Comment(s): left knee & left shoulder replaced, back surg. x 2. 1 upper dental implant, right and left cataract removal with lens implant, thyroid surgery for nonmalignant tumor Past Anesthesia/Blood Transfusion Reactions: Postoperative Nausea & Vomiting (PONV) Additional Past Anesthesia/Blood Transfusion Reaction / Comment(s): no hx blood transfusion Past Psychological History: Anxiety, Depression Smoking Status: Former smoker Past Alcohol Use History: None Reported Additional Past Alcohol Use History / Comment(s): started smoking at age 12 smoked 1/2 ppd and quit 1965. Past Drug Use History: None Reported - Past Family History Sister(s) Family Medical History: Cancer Mother Family Medical History: Coronary Artery Disease (CAD) Additional Family Medical History / Comment(s): "heart problems" Father Additional Family Medical History / Comment(s): alcoholic Medications and Allergies Home Medications Medication Instructions Recorded Confirmed Type Raloxifene [Evista] 60 mg PO DAILY 10/24/15 07/09/19 History LORazepam [Ativan] 1 mg PO HS 05/31/18 07/09/19 History Apixaban [Eliquis] 2.5 mg PO BID #60 tablet 06/09/18 07/09/19 Rx Furosemide [Lasix] 40 mg PO QAM 11/10/18 07/09/19 History Potassium Chloride [K-Tab ER] 20 meq PO Q48H 11/10/18 07/09/19 History Atorvastatin [Lipitor] 20 mg PO Q48H 07/09/19 07/09/19 History Metoprolol Tartrate [Lopressor] 50 mg PO BID 07/09/19 07/09/19 History Allergies Allergy/AdvReac Type Severity Reaction Status Date / Time No Known Allergies Allergy Verified 07/09/19 12:57 Physical Exam Vitals: Vital Signs Temp Pulse Pulse Resp BP BP Pulse Ox 07/09/19 16:10 144 H 07/09/19 15:34 96.2 F L 138 H 18 125/84 91 L 07/09/19 14:58 118 H 18 116/80 97 07/09/19 13:40 120 H 21 100/85 97 07/09/19 13:20 116 H 25 H 89/66 98 07/09/19 13:00 140 H 20 117/99 99 07/09/19 12:50 126 H 15 117/99 98 07/09/19 12:40 123 H 20 117/99 97 07/09/19 12:30 131 H 23 127/80 07/09/19 12:28 127/80 64 L 07/09/19 12:00 97.5 F L 77 18 125/83 99 Intake and Output 07/09/19 07/09/19 07/09/19 06:59 14:59 22:59 Other: Weight 69.4 kg General: [non toxic], [appears tearful and sad], [appears at stated age] Derm: [warm], [dry] Head: [atraumatic], [normocephalic], [symmetric] Eyes: [EOMI], [no lid lag], [anicteric sclera] Mouth: [no lip lesion], [mucus membranes moist] Cardiovascular: [S1S2 reg], [irregularly irregular], [positive posterior tibial pulse bilateral], Lungs: [CTA bilateral], [no rhonchi, no rales] , [no accessory muscle use] Abdominal: [soft], [ nontender to palpation], [no guarding], [no appreciable organomegaly] Ext: [no gross muscle atrophy], [no edema], [no contractures] Neuro: [ CN II-XI grossly intact], [no focal neuro deficits] Psych: [Alert], [oriented], [appropriate affect] Results CBC & Chem 7: 07/09/19 12:45 07/09/19 12:45 Labs: Abnormal Lab Results - Last 24 Hours (Table) 07/09/19 07/09/19 Range/Units 12:21 12:45 BUN 34 H (7-17) mg/dL Creatinine 1.16 H (0.52-1.04) mg/dL Glucose 120 H (74-99) mg/dL ALT 53 H (9-52) U/L Ur Leukocyte Esterase Trace H (Negative) Thrombosis Risk Factor Assmnt - Choose All That Apply Any of the Below Risk Factors Present?: Yes Each Factor Represents 1 point: Obesity (BMI >25), Varicose veins Other Risk Factors: Yes Each Risk Factor Represents 3 Points: Age 75 years or older Thrombosis Risk Factor Assessment Total Risk Factor Score: 5 Thrombosis Risk Factor Assessment Level: High Risk Assessment and Plan Assessment: Assessment and plan Atrial fibrillation with rapid ventricular rate Diastolic CHF not in acute exacerbation Depression that is worsening since the passing of her Acute kidney injury Abnormal urinalysis Hypertension As seen on EKG. TSH within normal limits and january of 2019. Plans: Restart home dose metoprolol. Cardizem drip started from ED. Anticoagulation with Eliquis. Potassium greater than 4 and magnesium greater than 2. Follow-up echocardiogram. Follow-up cardiology consultation. As seen on echocardiogram in January 2019. Plans: Adequate blood pressure control. Continue Lasix by mouth. Repeat echocardiogram. Follow-up cardiology consultation. Grief versus depression. Low risk for suicide though endorsing concerns that she wants to be with her . She does not have a plan. Plans: Follow psychiatry consultation. Cranium 1.16. Likely due to dehydration. Plans: Encourage hydration by mouth. Normal saline at 50 mL per hour. Avoid nephrotoxins. Repeat BMP in the morning. UA shows trace leukocyte esterase. Patient is symptomatically. Plans: Nothing to do. BP 117/99. Plans: Continue metoprolol and diltiazem drip. Monitor vitals, adjust medications as necessary. DVT prophylaxis: [Eliquis] Discussed with: [Patient and daughter] Anticipated discharge: [2-3 days] Anticipated discharge place: [Home] A total of [45] minutes was spent on the care of this complex patient more than 50% of the time was spent in counseling and care coordination. This patient is admitted for anticipated greater than 48 hours for atrial fibrillation with rapid ventricular rate. Her PCP is Dr. Dailey. Patient names her son and the decision maker in the case that she can't make decisions for herself. Patient would like to be no code.
[2019-07-09] MEDS: SODIUM CHLORIDE 0.9% 1,000 ML IV SCH (17:57)
[2019-07-09] MEDS: NITROGLYCERIN OINT 1 INCH/GM PACKET TOPICAL SCH ×2 (17:58→22:38)
[2019-07-09] MEDS: METOPROLOL TARTRATE 50 MG TAB PO SCH (20:36)
[2019-07-09] MEDS: LORazepam 1 MG TAB PO SCH (20:36)
[2019-07-09] MEDS: ATORVASTATIN 20 MG TAB PO SCH (20:37)
[2019-07-09] MEDS: APIXABAN 2.5 MG TABLET PO SCH (20:37)
[2019-07-10] MEDS: NITROGLYCERIN OINT 1 INCH/GM PACKET TOPICAL SCH (05:11)
[2019-07-10 06:48] LABS: Calcium 8.8 mg/dL (8.4-10.2); Potassium 3.5 mmol/L (3.5-5.1)
[2019-07-10] MEDS ORDERED: ASPIRIN 325 MG TAB PO SCH (09:00)
[2019-07-10] MEDS: FUROSEMIDE 40 MG TAB PO SCH (09:19)
[2019-07-10] MEDS: METOPROLOL TARTRATE 50 MG TAB PO SCH ×2 (09:19→19:44)
[2019-07-10] MEDS: POTASSIUM CHLORIDE ER 20 MEQ TAB.ER PO SCH (09:19)
[2019-07-10] MEDS: APIXABAN 2.5 MG TABLET PO SCH ×2 (09:19→19:44)
[2019-07-10] MEDS: DILTIAZEM 125 MG in SODIUM CHLORIDE 0.9% 100 ML IV SCH (09:20)
[2019-07-10] MEDS: RALOXIFENE 60 MG TAB PO SCH (09:24)
[2019-07-10] MEDS ORDERED: FUROSEMIDE 10 MG/ML 4 ML VIAL IV STA (09:56)
--- NOTE | 2019-07-10 09:57 | P.CRDCN ---
History of Present Illness Consult date: 07/10/19 Requesting physician: Roxanne Muniz Consult reason: atrial fibrillation Chief complaint: Weakness History of present illness: This is an 88-year-old female who follows with Dr. Travis Caldwell in the office, she has a past medical history significant for hypertension, paroxysmal atrial fibrillation, hypertension. She presented to the hospital with symptoms of progressively worsening weakness as well as associated shortness of breath. According to the patient, she did take some extra Lasix at home prior to coming into the hospital. Patient denies feeling her heart racing fast, but does notice when she exerts herself a minimally that she has quite short of breath, much worse than recent. Her blood pressure on arrival here 126/80 with a heart rate of 130, afebrile, 97% on room air. She was initiated on IV Cardizem, her heart rate this morning 106 on 10 mg of Cardizem. White blood cell count 8.9, hemoglobin 14.5, platelet count 280. Sodium 142, potassium 3.5, BUN 30, crea tinine 0.8, magnesium 2.1. Troponins are negative 3. Patient did have an echocardiogram with Doppler study performed in January which revealed an ejection fraction of 55-60%. Moderate aortic regurgitation, moderate mitral regurgitation. Patient did have a recent hospitalization in January of this year with very similar symptoms, she was found to be in A. fib with RVR at that time as well. Her home medications included Lipitor 20 mg every other day, Evista, Lopressor 50 twice a day, Lasix 40 mg daily, potassium 20 mEq every other day and Eliquis 2.5 mg twice a day. At the time of my examination this morning, patient does feel mildly short of breath, continues to feel weak. Past Medical History Past Medical History: Atrial Fibrillation, Heart Failure, Eye Disorder, Hypertension, Musculoskeletal Disorder, Osteoarthritis (OA) Additional Past Medical History / Comment(s): has lt eye cataract, uses cane when up. History of Any Multi-Drug Resistant Organisms: None Reported Past Surgical History: Appendectomy, Back Surgery, Section, Joint Replacement, Tubal Ligation Additional Past Surgical History / Comment(s): left knee & left shoulder repl aced, back surg. x 2. 1 upper dental implant, right and left cataract removal with lens implant, thyroid surgery for nonmalignant tumor Past Anesthesia/Blood Transfusion Reactions: Postoperative Nausea & Vomiting (PONV) Additional Past Anesthesia/Blood Transfusion Reaction / Comment(s): no hx blood transfusion Past Psychological History: Anxiety, Depression Smoking Status: Former smoker Past Alcohol Use History: None Reported Additional Past Alcohol Use History / Comment(s): started smoking at age 12 smoked 1/2 ppd and quit 1966. Past Drug Use History: None Reported - Past Family History Sister(s) Family Medical History: Cancer Mother Family Medical History: Coronary Artery Disease (CAD) Additional Family Medical History / Comment(s): "heart problems" Father Additional Family Medical History / Comment(s): alcoholic Medications and Allergies Home Medications Medication Instructions Recorded Confirmed Type Raloxifene [Evista] 60 mg PO DAILY 10/24/15 07/09/19 History LORazepam [Ativan] 1 mg PO HS 05/31/18 07/09/19 History Apixaban [Eliquis] 2.5 mg PO BID #60 tablet 06/09/18 07/09/19 Rx Furosemide [Lasix] 40 mg PO QAM 11/10/18 07/09/19 History Potassium Chloride [K-Tab ER] 20 meq PO Q48H 11/10/18 07/09/19 History Atorvastatin [Lipitor] 20 mg PO Q48H 07/09/19 07/09/19 History Metoprolol Tartrate [Lopressor] 50 mg PO BID 07/09/19 07/09/19 History Allergies Allergy/AdvReac Type Severity Reaction Status Date / Time No Known Allergies Allergy Verified 07/09/19 12:57 Physical Exam Vitals: Vital Signs Temp Pulse Pulse Resp BP BP Pulse Ox 07/10/19 04:00 98.3 F 114 H 18 93 L 07/10/19 00:00 98.7 F 110 H 16 121/77 94 L 07/09/19 20:00 98.4 F 105 H 18 98/66 93 L 07/09/19 16:10 144 H 07/09/19 15:34 96.2 F L 138 H 18 125/84 91 L 07/09/19 14:58 118 H 18 116/80 97 07/09/19 13:40 120 H 21 100/85 97 07/09/19 13:20 116 H 25 H 89/66 98 07/09/19 13:00 140 H 20 117/99 99 07/09/19 12:50 126 H 15 117/99 98 07/09/19 12:40 123 H 20 117/99 97 07/09/19 12:30 131 H 23 127/80 07/09/19 12:28 127/80 64 L 07/09/19 12:00 97.5 F L 77 18 125/83 99 Intake and Output 07/09/19 07/10/19 07/10/19 22:59 06:59 14:59 Intake Total 260.417 424.583 200 Balance 260.417 424.583 200 Intake: Intake, IV Titration 20.417 304.583 Amount Diltiazem 125 mg In 20.417 104.583 Sodium Chloride 0.9% 100 ml @ 5 MG/HR 5 mls/hr IV .Q24H [facility] Rx#:[id number] Sodium Chloride 0.9% 1, 200 000 ml @ 50 mls/hr IV . Q20H [facility] Rx#:[id number] Oral 240 120 200 Other: # Voids 1 1 1 Weight 69 kg PHYSICAL EXAMINATION: GENERAL: 89-year-old female in no acute distress at the time of my examination HEENT: Head is atraumatic, normocephalic. Pupils equal, round. Sclera anicteric. Conjunctiva are clear. Mucous membranes of the mouth are moist. Neck is supple. There is no elevated jugular venous pressure. No carotid bruit is heard. HEART EXAMINATION: Heart S1 and S2 irregularly irregular a systolic murmur is heard CHEST EXAMINATION: Lungs are clear to auscultation and precussion. No chest wall tenderness is noted on palpation or with deep breathing. ABDOMEN: Soft, nontender. Bowel sounds are heard. No organomegaly noted. EXTREMITIES: 2+ peripheral pulses with no evidence of peripheral edema and no calf tenderness noted. NEUROLOGIC patient is awake, alert and oriented 3 . . Results 07/09/19 12:45 07/10/19 06:12 Cardiac Enzymes 07/09/19 07/09/19 07/09/19 Range/Units 12:45 12:45 18:27 AST 33 (14-36) U/L Troponin I <0.012 <0.012 (0.000-0.034) ng/mL 07/10/19 Range/Units 00:50 AST (14-36) U/L Troponin I 0.012 (0.000-0.034) ng/mL Coagulation 07/09/19 Range/Units 12:45 PT 11.9 (9.0-12.0) sec APTT 24.9 (22.0-30.0) sec Lipids 07/10/19 Range/Units 06:12 Triglycerides 66 (<150) mg/dL Cholesterol 84 (<200) mg/dL HDL Cholesterol 22 L (40-60) mg/dL CBC 07/09/19 Range/Units 12:45 WBC 8.9 (3.8-10.6) k/uL RBC 4.69 (3.80-5.40) m/uL Hgb 14.4 (11.4-16.0) gm/dL Hct 44.5 (34.0-46.0) % Plt Count 280 (150-450) k/uL Comprehensive Metabolic Panel 07/09/19 07/10/19 Range/Units 12:45 06:12 Sodium 144 142 (137-145) mmol/L Potassium 3.9 3.5 (3.5-5.1) mmol/L Chloride 105 106 (98-107) mmol/L Carbon Dioxide 28 28 (22-30) mmol/L BUN 34 H 30 H (7-17) mg/dL Creatinine 1.16 H 0.89 (0.52-1.04) mg/dL Glucose 120 H 101 H (74-99) mg/dL Calcium 9.6 8.8 (8.4-10.2) mg/dL AST 33 (14-36) U/L ALT 53 H (9-52) U/L Alkaline Phosphatase 58 (38-126) U/L Total Protein 6.7 (6.3-8.2) g/dL Albumin 4.1 (3.5-5.0) g/dL Current Medications Generic Name Dose Route Start Last Admin Trade Name Freq PRN Reason Stop Dose Admin Apixaban 2.5 mg 07/09/19 21:00 07/10/19 09:19 Eliquis PO 2.5 mg BID [facility] Administration Atorvastatin Calcium 20 mg 07/09/19 21:00 07/09/19 20:37 Lipitor PO 20 mg Q48H [facility] Administration Furosemide 40 mg 07/10/19 09:00 07/10/19 09:19 Lasix PO 40 mg QAM [facility] Administration Diltiazem HCl 125 mg/ Sodium 125 mls @ 5 mls/hr 07/09/19 12:45 07/10/19 09:20 Chloride IV 10 mg/hr .Q24H [facility] 10 mls/hr Administration 5 MG/HR Sodium Chloride 1,000 mls @ 50 mls/hr 07/09/19 16:45 07/09/19 17:57 Saline 0.9% IV 50 mls/hr .Q20H [facility] Administration Lorazepam 1 mg 07/09/19 21:00 07/09/19 20:36 Ativan PO 1 mg HS [facility] Administration Metoprolol Tartrate 50 mg 07/09/19 21:00 07/10/19 09:19 Lopressor PO 50 mg BID [facility] Administration Naloxone HCl 0.2 mg 07/09/19 16:46 Narcan IV Q2M PRN Opioid Reversal Nitroglycerin 0.4 mg 07/09/19 14:11 Nitrostat SUBLINGUAL Q5M PRN Chest Pain Nitroglycerin 1 inch 07/09/19 18:00 07/10/19 05:11 Nitro-Bid Oint TOPICAL Not Given Q6HR [facility] Potassium Chloride 20 meq 07/10/19 09:00 07/10/19 09:19 K-Dur 20 PO 20 meq Q48H [facility] Administration Raloxifene HCl 60 mg 07/10/19 09:00 07/10/19 09:24 Evista PO 60 mg DAILY [facility] Administration Intake and Output 07/09/19 07/10/19 07/10/19 22:59 06:59 14:59 Intake Total 260.417 424.583 200 Balance 260.417 424.583 200 Intake: Intake, IV Titration 20.417 304.583 Amount Diltiazem 125 mg In 20.417 104.583 Sodium Chloride 0.9% 100 ml @ 5 MG/HR 5 mls/hr IV .Q24H [facility] Rx#:[id number] Sodium Chloride 0.9% 1, 200 000 ml @ 50 mls/hr IV . Q20H [facility] Rx#:[id number] Oral 240 120 200 Other: # Voids 1 1 1 Weight 69 kg 07/09/19 12:45 07/10/19 06:12 EKG Interpretations (text) EKG shows atrial fibrillation with rapid ventricular response Assessment and Plan Plan: ssessment and plan #1 symptoms of shortness of breath, appears to be secondary to A. fib with RVR, small left pleural effusion noted on chest x-ray #2 paroxysmal atrial fibrillation #3 hypertension #4 hypokalemia Plan We will repeat an echocardiogram with Doppler study as well as a TSH level. Replace the patient's potassium. Able one-time dose of IV Lasix. Discontinue IV Cardizem drip and increase metoprolol to 50 mg one tablet by mouth 3 times a day, discontinue Nitropaste. Discontinue IV fluids. Further recommendations to follow. DNP note has been reviewed, I agree with a documented findings and plan of care. Patient was seen and examined.
--- NOTE | 2019-07-10 10:28 | ECHOF ---
Referral Reason:A. fib RVR MEASUREMENTS -------- HEIGHT: 165.1 cm WEIGHT: 68.9 kg BP: 121/77 RVIDd: 2.5 cm (< 3.3) IVSd: 1.1 cm (0.6 - 1.1) LVIDd: 3.2 cm (3.9 - 5.3) LVPWd: 1.6 cm (0.6 - 1.1) IVSs: 1.8 cm LVIDs: 1.7 cm LVPWs: 2.1 cm LAESV Index (A-L): 66.74 ml/m Ao Diam: 3.1 cm (2.0 - 3.7) AV Cusp: 1.8 cm (1.5 - 2.6) LA Diam: 4.3 cm (2.7 - 3.8) MV EXCURSION: 15.618 mm (> 18.000) MV EF SLOPE: 118 mm/s (70 - 150) EPSS: 1.4 cm AV maxP.70 mmHg AV meanP.22 mmHg AR PHT: 465 ms RAP: 15.00 mmHg RVSP: 42.71 mmHg FINDINGS -------- Atrial fibrillation. This was a technically adequate study. The left ventricular size is normal. There is mild concentric left ventricular hypertrophy. Overa ll left ventricular systolic function is low-normal with, an EF between 50 - 55 %. Left ventricular fillimg pressure cannot be estimated due to Atrial fibrillation. The right ventricle is normal in size. LA is severely dilated >40 ml/m2 The right atrium is mildly enlarged. Aortic valve is trileaflet and is moderately thickened. There is mild aortic regurgitation. There is mild aortic stenosis present. Peak/mean gradient across the Aortic Valve is 12.70mmHg / 9.22mmH g. The mitral valve is normal. The mitral valve leaflets are mildly thickened. Moderate mitral regur gitation is present. The tricuspid valve appears structurally normal. Severe tricuspid regurgitation present. There is mild pulmonary hypertension. The right ventricular systolic pressure, as measured by Doppler, is 4 2.71mmHg. There is no pulmonic regurgitation present. The aortic root size is normal. The inferior vena cava is mildly dilated. There is no pericardial effusion. CONCLUSIONS -------- 1. Atrial fibrillation. 2. This was a technically adequate study. 3. The left ventricular size is normal. 4. There is mild concentric left ventricular hypertrophy. 5. Overall left ventricular systolic function is low-normal with, an EF between 50 - 55 %. 6. Left ventricular fillimg pressure cannot be estimated due to Atrial fibrillation. 7. The right ventricle is normal in size. 8. LA is severely dilated >40 ml/m2 9. The right atrium is mildly enlarged. 10. Aortic valve is trileaflet and is moderately thickened. 11. There is mild aortic regurgitation. 12. There is mild aortic stenosis present. 13. Peak/mean gradient across the Aortic Valve is 12.70mmHg / 9.22mmHg. 14. The mitral valve is normal. 15. The mitral valve leaflets are mildly thickened. 16. Moderate mitral regurgitation is present. 17. The tricuspid valve appears structurally normal. 18. Severe tricuspid regurgitation present. 19. There is mild pulmonary hypertension. 20. The right ventricular systolic pressure, as measured by Doppler, is 42.71mmHg. 21. There is no pulmonic regurgitation present. 22. The aortic root size is normal. 23. The inferior vena cava is mildly dilated. 24. There is no pericardial effusion. QUANTITATIVE DEVELOPER: Olga Justin RDCS
[2019-07-10] MEDS: DRONEDARONE 400 MG TAB PO SCH ×2 (10:53→17:03)
[2019-07-10] MEDS ORDERED: METOPROLOL TARTRATE 50 MG TAB PO SCH (16:00)
--- NOTE | 2019-07-10 16:14 | P.PN ---
Subjective Progress Note Date: 07/10/19 Principal diagnosis: A. fib with RVR Patient was seen and examined. No acute events overnight. Patient reports palpitations overnight. She states that her heart felt like it was racing. When her daughter arrived, her symptoms improved slightly. Patient denies any chest pain but continues to endorse shortness of breath, similar to admission. She denies any nausea or vomiting. No fever or chills. Heart rate on telemetry 116 irregularly regular. Objective - Vital Signs Vital signs: Vital Signs Temp 97.8 F 07/10/19 12:00 Pulse 96 07/10/19 12:00 Resp 16 07/10/19 12:00 BP 110/65 07/10/19 12:00 Pulse Ox 94 L 07/10/19 12:00 Intake & Output 07/09/19 07/10/19 07/10/19 18:59 06:59 18:59 Intake Total 260.417 424.583 320 Balance 260.417 424.583 320 Weight 69.4 kg 69 kg Intake: Intake, IV Titration 20.417 304.583 Amount Diltiazem 125 mg In 20.417 104.583 Sodium Chloride 0.9% 100 ml @ 5 MG/HR 5 mls/hr IV .Q24H [facility] Rx#:[id number] Sodium Chloride 0.9% 1, 200 000 ml @ 50 mls/hr IV . Q20H [facility] Rx#:[id number] Oral 240 120 320 Other: # Voids 1 1 1 - Exam General: [non toxic], [appears tearful and sad], [appears at stated age] Derm: [warm], [dry] Head: [atraumatic], [normocephalic], [symmetric] Eyes: [EOMI], [no lid lag], [anicteric sclera] Mouth: [no lip lesion], [mucus membranes moist] Cardiovascular: [S1S2 reg], [irregularly irregular], [positive DP pulse bilateral], Lungs: [CTA bilateral], [no rhonchi, no rales] , [no accessory muscle use] Abdominal: [soft], [ nontender to palpation], [no guarding], [no appreciable organomegaly] Ext: [no gross muscle atrophy], [no edema], [no contractures] Neuro: [no focal neuro deficits] Psych: [Alert], [oriented], [appropriate affect] - Labs CBC & Chem 7: 07/09/19 12:45 07/10/19 06:12 Labs: Abnormal Lab Results - Last 24 Hours (Table) 07/10/19 Range/Units 06:12 BUN 30 H (7-17) mg/dL Glucose 101 H (74-99) mg/dL HDL Cholesterol 22 L (40-60) mg/dL Assessment and Plan Assessment: Assessment and plan Atrial fibrillation with rapid ventricular rate Diastolic CHF not in acute exacerbation Depression that is worsening since the passing of her Acute kidney injury Abnormal urinalysis Hypertension As seen on EKG. TSH within normal limits and january of 2019. Echocardiogram shows EF 50-55% with concentric LVH. Plans: Restart home dose metoprolol. Cardizem drip discontinued and patient started on Dronedarone by mouth. Anticoagulation with Eliquis. Potassium greater than 4 and magnesium greater than 2. Follow- up cardiology consultation. As seen on echocardiogram in January 2019. Echocardiogram as above. Plans: Adeq uate blood pressure control. Continue Lasix by mouth. Follow-up cardiology consultation. Grief versus depression. Low risk for suicide though endorsing concerns that she wants to be with her . She does not have a plan. Plans: Follow psychiatry consultation. Cranium 1.16-0.89. Likely due to dehydration. Plans: Encourage hydration by mouth. Normal saline at 50 mL per hour. Avoid nephrotoxins. Repeat BMP in the morning. UA shows trace leukocyte esterase. Patient is symptomatically. Plans: Nothing to do. BP 109/82. Plans: Continue metoprolol. Monitor vitals, adjust medications as necessary. [Medications adjusted by cardiology. As per cardiology, possible cardioversion if patient is continues to be in A. fib by Wednesday. Psychiatric consultation pending for depression. Likely DC in 1-2 days.]
[2019-07-10] MEDS: SODIUM CHLORIDE 0.9% 1,000 ML IV SCH (16:58)
[2019-07-10] MEDS: LORazepam 1 MG TAB PO SCH (21:36)
[2019-07-10] MEDS: MIRTAZAPINE 15 MG TAB PO SCH (21:36)
[2019-07-11] MEDS: DRONEDARONE 400 MG TAB PO SCH ×2 (06:35→17:25)
[2019-07-11] MEDS: METOPROLOL TARTRATE 50 MG TAB PO SCH ×2 (08:27→21:39)
[2019-07-11] MEDS: FUROSEMIDE 40 MG TAB PO SCH (08:28)
[2019-07-11] MEDS: RALOXIFENE 60 MG TAB PO SCH (08:28)
[2019-07-11] MEDS: APIXABAN 2.5 MG TABLET PO SCH ×2 (08:28→21:39)
[2019-07-11] MEDS: HYDROcodone/APAP 7.5-325MG 1 EACH TAB PO PRN ×2 (10:55→21:03)
[2019-07-11] MEDS ORDERED: HYDROcodone/APAP 7.5-325MG 1 EACH TAB PO PRN (11:10)
--- NOTE | 2019-07-11 12:19 | P.PN ---
Subjective Progress Note Date: 07/11/19 This is an 88-year-old female who follows with Dr. Travis Caldwell in the office, she has a past medical history significant for hypertension, paroxysmal atrial fibrillation, hypertension. She presented to the hospital with symptoms of progressively worsening weakness as well as associated shortness of breath. According to the patient, she did take some extra Lasix at home prior to coming into the hospital. Patient denies feeling her heart racing fast, but does notice when she exerts herself a minimally that she has quite short of breath, much worse than recent. Her blood pressure on arrival here 126/80 with a heart rate of 130, afebrile, 97% on room air. She was initiated on IV Cardizem, her heart rate this morning 106 on 10 mg of Cardizem. White blood cell count 8.9, hemoglobin 14.5, platelet count 280. Sodium 142, potassium 3.5, BUN 30, creatinine 0.8, magnesium 2.1. Troponins are negative 3. Patient did have an echocardiogram with Doppler study performed in January which revealed an ejection fraction of 55-60%. Moderate aortic regurgitation, moderate mitral regurgitation. Patient did have a recent hospitalization in January of this year with very similar symptoms, she was found to be in A. fib with RVR at that time as well. Her home medications included Lipitor 20 mg every other day, Evista, Lopressor 50 twice a day, Lasix 40 mg daily, potassium 20 mEq every other day an d Eliquis 2.5 mg twice a day. At the time of my examination this morning, patient does feel mildly short of breath, continues to feel weak. 07/11/2019 Patient was seen and examined this morning, continues to be in atrial fibrillation. She continues to feel short of breath, mildly weak. Blood pr essure 122/90, heart rate 1:15. Sodium 142, potassium 3.5, BUN 30 and creatinine 0.8. Objective - Vital Signs Vital signs: Vital Signs Temp 97.6 F 07/11/19 08:15 Pulse 115 H 07/11/19 08:15 Resp 18 07/11/19 08:15 BP 122/92 07/11/19 08:15 Pulse Ox 98 07/11/19 08:15 Intake & Output 07/10/19 07/11/19 07/11/19 18:59 06:59 18:59 Intake Total 1126 240 240 Output Total 800 400 Balance 326 240 -160 Weight 75 kg Intake: Intake, IV Titration 200 Amount Sodium Chloride 0.9% 1, 200 000 ml @ 20 mls/hr IV . Q24H [facility] Rx#:[id number] Oral 926 240 240 Output: Urine 800 400 Other: # Voids 3 2 1 # Bowel Movements 1 - Exam PHYSICAL EXAMINATION: GENERAL: 89-year-old female in no acute distress at the time of my examination HEENT: Head is atraumatic, normocephalic. Pupils equal, round. Sclera anicteric. Conjunctiva are clear. Mucous membranes of the mouth are moist. Neck is supple. There is no elevated jugular venous pressure. No carotid bruit is heard. HEART EXAMINATION: Heart S1 and S2 irregularly irregular a systolic murmur is heard CHEST EXAMINATION: Lungs are clear to auscultation and precussion. No chest wall tenderness is noted on palpation or with deep breathing. ABDOMEN: Soft, nontender. Bowel sounds are heard. No organomegaly noted. EXTREMITIES: 2+ peripheral pulses with no evidence of peripheral edema and no calf tenderness noted. NEUROLOGIC patient is awake, alert and oriented 3 . . - Labs CBC & Chem 7: 07/09/19 12:45 07/10/19 06:12 Assessment and Plan Plan: ssessment and plan #1 symptoms of shortness of breath, appears to be secondary to A. fib with RVR, small left pleural effusion noted on chest x-ray #2 paroxysmal atrial fibrillation #3 hypertension #4 hypokalemia Plan EChocardiogram with Doppler study was performed which revealed an ejection fraction of 50-55%, moderate mitral regurgitation and severe tricuspid regurg. Patient was initiated on Multaq yesterday, continues to be in atrial fibrillation. We will schedule her for an elective cardioversion tomorrow. The details as well as the risks and the benefits of the procedure were discussed with the patient. DNP note has been reviewed, I agree with a documented findings and plan of care. Patient was seen and examined.
[2019-07-11] MEDS: SODIUM CHLORIDE 0.9% 1,000 ML IV SCH ×2 (13:03→17:51)
--- NOTE | 2019-07-11 13:09 | P.CN ---
Psychiatric Consult - . Consult date: 07/11/19 Consult:: Reason for consultation: Psychiatric evaluation for depression Identifying data: The patient is a 59-year-old female who was admitted to medical floor because of shortness of breath and weakness. The patient was seen while she was at the observation unit. Chief complaint and history of present illness: The patient was past medical history of atrial fibrillation, hypertension, anxiety and depression came to the ER with a chief complaint of shortness of breath and palpitation. Patient was admitted to observation unit for further monitoring. Patient reports starting of depression symptoms after her about 1 year ago. Patient reports symptoms of diminished motivation, lack of interest, sleep and appetite disturbances, but denies feeling hopeless, helpless or suicidal. She reports has very infrequent wishes to and sometimes talking about wanting to be with her . Patient reports doesn't feel any andrew or excitement in the activities that she used to do with her before he . She reports continued to take care of her dogs but she stays at home for most of the time because of physical limitation and transportation problems. Even her children brought her a car but she has difficulties with driving. Patient reports received treatment for depression by her primary care physician and she was prescribed mirtazapine which she couldn't tolerate 15 mg and she is currently taking 7.5 mg at bedtime. The patient clearly denies any intention or plan to hurt herself, and she expressed willingness to continue treatment and to receive therapy and counseling after discharge. Patient denies any other psychiatric symptoms including anxiety, manic symptoms, psychotic symptoms, or PTSD symptoms. She denies feeling tense and racing thoughts for most of the time, denies panic attack. She also denies symptoms of inflated self-esteem, a for mood, unusual first of increased energy or lack need to sleep due to increased activities. She denies any auditory or visual hallucinations, paranoid ideation, and no delusions could be elicited. She denies any history of nightmares or flashbacks and he denies any previous psychological trauma. Past psychiatric history: Previous psychiatric hospitalization: Denies any previous psychiatric hospitalization Previous suicidal attempts: Denies any previous suicidal attempts, or suicidal thoughts. Previous psychiatric treatment: Reports a started alprazolam a year ago but she couldn't tolerate the medication because of nausea, and her PCP started her on mirtazapine which she couldn't tolerate 15 mg and he decreased the dose to 7.5 mg which is currently receiving. Substance use history: Nicotine: Quitted smoking 50 years ago. Alcohol: Denies any current use of alcohol. Cannabis: Denies any use of marijuana or other street drugs. Denies previous history of substance use disorder treatment Family history of psychiatric illness: Reports her mother and sister suffered from depression and was prescribed antidepressant medication. Reports her sister suffered from alcohol problems. Denies any family history of suicide Brief social history: Patient is currently living by herself with her dog after her a year ago. She reports her children are very supportive. She is currently retired. Denies any history of psychological trauma or childhood abuse. Mental status examination; Appearance: The patient appears stated age, fairly groomed, average body built, no specific features. Gait/posture: Patient was seen while lying in bed, No abnormal movements. Attitude and behavior: engaged, cooperative, fair eye contact. Motor activity: Normal psychomotor activity Speech: Normal rate, rhythm, not pressured Mood: "Depressed" Affect: Constricted Thought form: goal-directed, linear, coherent. Thought content: Non-delusional, denies suicidal thoughts, denies homicidal thoughts, denies intentions or plans. Perception: Denies any auditory or visual hallucinations Attention: No impairment. Orientation: Patient patient was oriented to time place person and situation. Insight: Patient has fair insight about her psychiatric disorder. Judgment: Patient has fair judgment about her psychiatric treatment. 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 Recommendations: Addressed and ensured patient's safety, patient is not actively suicidal, his active plan or intent of suicide. Patient is psychiatrically stable, and does not meet the criteria for psychiatric hospitalization. Discharge of the patient's when medically stable. At this time there is no need for further follow-up by psychiatric team. Medication management: Continue Remeron 7.5 mg at bedtime for depression symptoms. Consider increasing the dose to 15 mg if the patient couldn't tolerate the higher dose. Individual therapy: Discussed with the patient starting outpatient therapy after discharge. Disposition, aftercare follow-up and referral requests to be communicated to the unit social security assessor: Discussed with the nursing to consider referring the patient for social support including [employer] and to provide help with the transportation Discussed the treatment plan with the requesting physician/service. Psycho-education was provided to the patient. Thank you for permitting me to assist in this patient's treatment. Please call psychiatry department if you have any question or need further help with this case. 07/11/19 13:00
--- NOTE | 2019-07-11 14:18 | P.PN ---
Subjective Progress Note Date: 07/11/19 Patient reports that she is feeling good and doing well, stated that they will shock her heart tomorrow. Patient's heart rate has been quite fluctuating despite of being on to antiarrhythmic medications and she is on anticoagulation with Eliquis. Patient reports that her she had chronic back pain and she takes Narco 7.5 mg/325 mg from her PCP and she hasn't received her pain medication since in the hospital and its is requesting it now. Patient denies chest pain, palpitation, diaphoresis, headache, dizziness, lightheadedness and denies rest of the review system. Objective - Vital Signs Vital signs: Vital Signs Temp 97.7 F 07/11/19 04:00 Pulse 106 H 07/11/19 04:00 Resp 18 07/11/19 04:00 BP 111/74 07/11/19 04:00 Pulse Ox 98 07/11/19 04:00 Intake & Output 07/10/19 07/11/19 07/11/19 18:59 06:59 18:59 Intake Total 1126 240 240 Output Total 800 Balance 326 240 240 Weight 75 kg Intake: Intake, IV Titration 200 Amount Sodium Chloride 0.9% 1, 200 000 ml @ 20 mls/hr IV . Q24H [facility] Rx#:[id number] Oral 926 240 240 Output: Urine 800 Other: # Voids 3 2 # Bowel Movements 1 - Constitutional General appearance: Present: cooperative, no acute distress - EENT ENT: Present: hard of hearing - Respiratory Respiratory: bilateral: diminished, rales (Basal.), negative: rhonchi, wheezing - Cardiovascular Rhythm: irregularly irregular Heart sounds: abnormal: S1 (Variable.), S2 (Variable.) - Gastrointestinal General gastrointestinal: Present: normal bowel sounds, soft. Absent: distended, rigid, tenderness - Psychiatric Psychiatric: Present: A&O x's 3, appropriate affect - Allied health notes Allied health notes reviewed: nursing - Labs CBC & Chem 7: 07/09/19 12:45 07/10/19 06:12 Assessment and Plan Plan: Atrial fibrillation with rapid ventricular rate, TSH ok January-2018 Chronic Back Pain Generalized weakness Diastolic CHF not in acute exacerbation, EF 50%-55% with concentric LVH Depression that is worsening since the passing of her Acute kidney injury Abnormal urinalysis Hypertension Restarted on home dose of metoprolol, Cardizem drip was discontinued yesterday and he was started on Dronedarone orally. Care coordinated with cardiology team and they recommended cardioversion to be done tomorrow morning as patient is on two anti-arrhythmic medication and her heart rate is still not well controlled. Anticoagulation with Eliquis andwill keep Potassium greater than 4 and magnesium greater than 2. Checked with pt's phaarmacy and she was on Narco 7.5/235 q6h PRN, will resume it while she is in the hospital, pt. will not need new prescription at the time of discharge. Will consult PT for E&M and will send home care with RN for medication management. Adequate blood pressure control. Continue Lasix by mouth. Grief versus depression. Low risk for suicide though endorsing concerns that she wants to be with her . She does not have a plan. Psychiatry consultation obtained, will await their recs. Encourage hydration by mouth. Normal saline at 50 mL per hour. Avoid nephrotoxins. Repeat BMP in the morning. UA shows trace leukocyte esterase. Patient is symptomatically. Plans: Nothing to do. Continue metoprolol. Monitor vitals, adjust medications as necessary. Likely DC in 1-2 days, pt is currently under observation status, will change it to full admit. Time with Patient: Less than 30
[2019-07-11] MEDS: ATORVASTATIN 20 MG TAB PO SCH (21:39)
[2019-07-11] MEDS: LORazepam 1 MG TAB PO SCH (21:39)
[2019-07-11] MEDS: MIRTAZAPINE 15 MG TAB PO SCH (21:40)
[2019-07-12] MEDS: DRONEDARONE 400 MG TAB PO SCH (06:48)
[2019-07-12] MEDS: METOPROLOL TARTRATE 50 MG TAB PO SCH (06:48)
[2019-07-12] MEDS ORDERED: IV FLUID CONTINUATION 1,000 ML IV ONE ×2 (07:00)
[2019-07-12] MEDS ORDERED: PROPOFOL 10 MG/ML 20 ML VIAL IV ONE (07:08)
--- NOTE | 2019-07-12 07:34 | CE ---
CARDIAC ELECTROPHYSIOLOGY REPORT PROCEDURE: Electrical cardioversion. INDICATION: Symptomatic chronic persistent atrial fibrillation. PERFORMED BY: Dr. Corin Caldwell. CLINICAL INFORMATION: Mrs. Keara Duong is an 89-year-old lady with a known diagnosis of atrial fibrillation but she has been more symptomatic lately with faster rates. She came into the hospital with symptomatic atrial fib with a rapid rate, was initiated on Multaq. Ejection fraction is about 55% without pulmonary hypertension. She was advised electrical cardioversion because of her recurrent symptoms and faster rates. She was brought in for the procedure this morning after due discussion with the patient and family. Dr. Aponte saw the patient and advised electrical cardioversion after due discussion. PROCEDURE NOTE: Under the influence of ultra short-acting intravenous anesthetic agent with the attendance of the anesthesiologist, a single 150 joule shock was delivered with anterior and posterior patches. Patient converted to sinus rhythm and sinus bradycardia, remained hemodynamically stable. She was somewhat slow to recover, but oxygenation is decent. This was a successful electrical cardioversion. She will be continued on Multaq and will be observed for 24 hours in the hospital. MMODL / IJN: [id number] /
[2019-07-12] MEDS: RALOXIFENE 60 MG TAB PO SCH (09:08)
[2019-07-12] MEDS: FUROSEMIDE 40 MG TAB PO SCH (09:08)
[2019-07-12] MEDS: APIXABAN 2.5 MG TABLET PO SCH ×2 (09:08→21:41)
[2019-07-12] MEDS: POTASSIUM CHLORIDE ER 20 MEQ TAB.ER PO SCH (09:08)
[2019-07-12] MEDS: SODIUM CHLORIDE 0.9% 1,000 ML IV SCH ×2 (12:28→13:08)
--- NOTE | 2019-07-12 12:36 | P.PN ---
Progress Note - Text Progress Note Date: 07/12/19 This is a progress note dictation for cardiology on had A. fib, patient did go for an elective cardioversion this morning and converted to normal sinus rhythm, on arrival back to the floor patient did go back into atrial fibrillation and at this time continues to be in A. fib with moderately rapid rate. We will discontinue her multiple pack and start the patient on 400 mg of amiodarone daily . Continue to monitor the patient. DNP note has been reviewed, I agree with a documented findings and plan of care. Patient was seen and examined.
[2019-07-12] MEDS: AMIODARONE 200 MG TAB PO SCH (13:08)
--- NOTE | 2019-07-12 13:50 | P.PN ---
Subjective Progress Note Date: 07/12/19 Patient awake he stated that she failed cardioversion trial. Patient did had cardioversion around 7:30 in the morning after that she converted back to sinus rhythm with some about bradycardia she was monitored and was transferred back to the unit. Upon arrival to the unit patient was noted to be a back in atrial fibrillation with moderately elevated ventricular rate. Patient's stated that she is feeling fine and denies chest pain, palpitation, diaphoresis, headache, dizziness, lightheadedness and denies rest of the review system. Objective - Vital Signs Vital signs: Vital Signs Temp 97.7 F 07/12/19 08:00 Pulse 115 H 07/12/19 12:00 Resp 18 07/12/19 12:00 BP 116/84 07/12/19 12:00 Pulse Ox 95 07/12/19 12:00 Intake & Output 07/11/19 07/12/19 07/12/19 18:59 06:59 18:59 Intake Total 1320 540 580 Output Total 400 Balance 920 540 580 Weight 79.5 kg Intake: IV 100 Intake, IV Titration 40 Amount Sodium Chloride 0.9% 1, 40 000 ml @ 20 mls/hr IV . Q24H [facility] Rx#:[id number] Oral 1280 540 480 Output: Urine 400 Other: # Voids 1 1 0 - Constitutional General appearance: Present: cooperative, no acute distress - EENT Eyes: Present: EOMI, normal appearance ENT: Present: hearing grossly normal, NA/AT - Respiratory Respiratory: bilateral: CTA, negative: dullness, rales, rhonchi, wheezing - Cardiovascular Rhythm: irregularly irregular Heart sounds: abnormal: S1 (Variable.), S2 (Variable.) Abnormal Heart Sounds: Absent: systolic murmur, diastolic murmur, S3 Gallop, S4 Gallop - Gastrointestinal General gastrointestinal: Present: normal bowel sounds, soft. Absent: distended, rigid, tenderness - Psychiatric Psychiatric: Present: A&O x's 3, appropriate affect - Allied health notes Allied health notes reviewed: nursing - Labs CBC & Chem 7: 07/09/19 12:45 07/10/19 06:12 Assessment and Plan Plan: Atrial fibrillation with rapid ventricular rate, Failed cardioversion today. Chronic Back Pain Generalized weakness Diastolic CHF not in acute exacerbation, EF 50%-55% with concentric LVH Depression that is worsening since the passing of her Acute kidney injury Abnormal urinalysis Hypertension Dronedarone was discontinued by cardiology services and patient was started on amiodarone orally. Patient will be continued on other medications as it is including metoprolol and anticoagulation with Eliquis and we will keep Potassium greater than 4 and magnesium greater than 2. Rest of the medication for chronic stable medical problems will be continued as it is. She will be monitored for next 24-48 hours on telemetry. Likely D/C in 1-2 days.
[2019-07-12] MEDS: LORazepam 1 MG TAB PO SCH (21:41)
[2019-07-12] MEDS: METOPROLOL TARTRATE 25 MG TAB PO SCH (21:41)
[2019-07-12] MEDS: MIRTAZAPINE 15 MG TAB PO SCH (21:41)
[2019-07-12] MEDS: HYDROcodone/APAP 7.5-325MG 1 EACH TAB PO PRN (21:42)
[2019-07-13] MEDS: AMIODARONE 200 MG TAB PO SCH (06:59)
[2019-07-13] MEDS: METOPROLOL TARTRATE 25 MG TAB PO SCH ×2 (06:59→20:54)
[2019-07-13] MEDS: APIXABAN 2.5 MG TABLET PO SCH ×2 (10:31→20:54)
[2019-07-13] MEDS: FUROSEMIDE 40 MG TAB PO SCH (10:31)
[2019-07-13] MEDS: RALOXIFENE 60 MG TAB PO SCH (10:31)
[2019-07-13] MEDS: SODIUM CHLORIDE 0.9% 1,000 ML IV SCH (10:32)
[2019-07-13] MEDS ORDERED: AMIODARONE 360 MG in DEXTROSE 5% IN WATER 200 ML IV ONE ×2 (12:17)
[2019-07-13] MEDS ORDERED: DEXTROSE 5% IN WATER 100 ML with AMIODARONE 150 MG IV ONE (12:17)
--- NOTE | 2019-07-13 14:12 | P.PN ---
Subjective Progress Note Date: 07/13/19 Principal diagnosis: Shortness of breath Patient is a 89-year-old female with a past medical history of atrial fibrillation, congestive heart failure, hypertension, and osteoarthritis who presented to the emergency department for shortness of breath. On arrival to the emergency department she was found to have a heart rate of 131 her vital signs were otherwise stable. Initial laboratory analysis showed a slight increase in her creatinine to 1.16 with a baseline of approximately 0.9. Chest x-ray demonstrated mild cardiomegaly and left basilar atelectasis or early airspace disease. Initial troponin was negative. Chest x-ray showed left basilar atelectasis. Patient was placed on Cardizem drip. She was admitted for further evaluation of her A. fib with RVR. Initially she was resumed on her home metoprolol and Eliquis. She was seen by cardiology who maintained her home beta lily, continued her on a Cardizem drip, and added Multaq. Despite being started on multi patient continued to be in atrial fibrillation. She underwent an echocardiogram which showed an ejection fraction of 50-55%, mild aortic valvular disease with severe tricuspid regurgitation, and mild mitral regurgitation. She is on have mild pulmonary hypertension with an RVSP of 42.7. Due to her depression psychiatry was consulted. They diagnosed her with major depressive disorder, recurrent and recommended continuing Remeron 7.5 mg at night with an increase to 15 if patient is able to tolerate. They also recommended resources for senior activity clubs. On 07/12 she underwent cardioversion and initially converted back to sinus rhythm however on arrival back to the floor she again went into A. fib. Her multaq was subsequently discontinued and she was started on amiodarone. Her heart rate remained elevated on the morning of 07/13 she was seen by cardiology and arrangements were made to start IV amiodarone. Patient seen and examined at bedside. No chest pain, no shortness of breath, cant tell that her heart is racing, no presyncope, no nausea. Aware of plan of care. All questions answered. Objective - Vital Signs Vital signs: Vital Signs Temp 98 F 07/13/19 03:37 Pulse 120 H 07/13/19 03:37 Resp 18 07/13/19 03:37 BP 118/75 07/13/19 03:37 Pulse Ox 96 07/13/19 03:37 Intake & Output 07/12/19 07/13/19 07/13/19 18:59 06:59 18:59 Intake Total 1060 Balance 1060 Weight 74 kg Intake: IV 100 Oral 960 Other: # Voids 1 1 - Exam General: non toxic, no distress, appears younger than stated age Derm: warm, dry Head: atraumatic, normocephalic, symmetric Eyes: EOMI, no lid lag, anicteric sclera Mouth: no lip lesion, mucus membranes moist Cardiovascular: S1S2 irreg tachy, no murmur, positive posterior tibial pulse bilateral, Lungs: CTA bilateral, no rhonchi, no rales , no accessory muscle use Abdominal: soft, nontender to palpation, no guarding, no appreciable organomegaly Ext: no gross muscle atrophy, no edema, no contractures Neuro: CN II-XI grossly intact, no focal neuro deficits Psych: Alert, oriented, appropriate affect - Labs CBC & Chem 7: 07/09/19 12:45 07/10/19 06:12 Assessment and Plan Assessment: Atrial fibrillation with rapid ventricular response -Status post cardioversion 07/12 with return to atrial fibrillation -amio gtt today - eliquis - lopressor Diastolic congestive heart failure without acute exacerbation, ejection fraction 50-55% - Strict I and O - daily weights - laisx, lopressor - not on a ACEI no indication for one Situational depression - psych recs - remeron - outpatient counseling Hypertension - controlled - follow BP - continue current Acute kidney injury, resolved DVT prophylaxis: Timothy Discussed with: Patient, nursing, Elena Correia NP Anticipated discharge: 1-[address]: home A total of 25 minutes was spent on the care of this complex patient more than 50% of the time was spent in counseling and care coordination.
--- NOTE | 2019-07-13 14:56 | P.PN ---
Subjective Progress Note Date: 07/13/19 This is an 88-year-old female who follows with Dr. Travis Caldwell in the office, she has a past medical history significant for hypertension, paroxysmal atrial fibrillation, hypertension. She presented to the hospital with symptoms of progressively worsening weakness as well as associated shortness of breath. According to the patient, she did take some extra Lasix at home prior to coming into the hospital. Patient denies feeling her heart racing fast, but does notice when she exerts herself a minimally that she has quite short of breath, much worse than recent. Her blood pressure on arrival here 126/80 with a heart rate of 130, afebrile, 97% on room air. She was initiated on IV Cardizem, her heart rate this morning 106 on 10 mg of Cardizem. White blood cell count 8.9, hemoglobin 14.5, platelet count 280. Sodium 142, potassium 3.5, BUN 30, creatinine 0.8, magnesium 2.1. Troponins are negative 3. Patient did have an echocardiogram with Doppler study performed in January which revealed an ejection fraction of 55-60%. Moderate aortic regurgitation, moderate mitral regurgitation. Patient did have a recent hospitalization in January of this year with very similar symptoms, she was found to be in A. fib with RVR at that time as well. Her home medications included Lipitor 20 mg every other day, Evista, Lopressor 50 twice a day, Lasix 40 mg daily, potassium 20 mEq every other day an d Eliquis 2.5 mg twice a day. At the time of my examination this morning, patient does feel mildly short of breath, continues to feel weak. 07/11/2019 Patient was seen and examined this morning, continues to be in atrial fibrillation. She continues to feel short of breath, mildly weak. Blood pr essure 122/90, heart rate 1:15. Sodium 142, potassium 3.5, BUN 30 and creatinine 0.8. 07/13/2009 Patient seen and examined this morning, mildly short of breath. Continues to be in atrial fibrillation, heart rate in the 120s to 130s. Blood pressure 110/68. Objective - Vital Signs Vital signs: Vital Signs Temp 98 F 07/13/19 03:37 Pulse 133 H 07/13/19 14:37 Resp 20 07/13/19 14:37 BP 133/94 07/13/19 14:37 Pulse Ox 97 07/13/19 14:37 Intake & Output 07/12/19 07/13/19 07/13/19 18:59 06:59 18:59 Intake Total 1060 722 Balance 1060 722 Weight 74 kg Intake: IV 100 Intake, IV Titration 260 Amount Dextrose 5% in Water 100 100 ml @ 618 mls/hr IV .Q10M [facility] with Amiodarone 150 mg Rx#:[id number] Sodium Chloride 0.9% 1, 160 000 ml @ 20 mls/hr IV . Q24H [facility] Rx#:[id number] Oral 960 462 Other: # Voids 1 1 2 - Exam PHYSICAL EXAMINATION: GENERAL: 89-year-old female in no acute distress at the time of my examination HEENT: Head is atraumatic, normocephalic. Pupils equal, round. Sclera anicteric. Conjunctiva are clear. Mucous membranes of the mouth are moist. Neck is supple. There is no elevated jugular venous pressure. No carotid bruit is heard. HEART EXAMINATION: Heart S1 and S2 irregularly irregular a systolic murmur is heard CHEST EXAMINATION: Lungs are clear to auscultation and precussion. No chest wall tenderness is noted on palpation or with deep breathing. ABDOMEN: Soft, nontender. Bowel sounds are heard. No organomegaly noted. EXTREMITIES: 2+ peripheral pulses with no evidence of peripheral edema and no calf tenderness noted. NEUROLOGIC patient is awake, alert and oriented 3 . . - Labs CBC & Chem 7: 07/09/19 12:45 07/10/19 06:12 Assessment and Plan Plan: ssessment and plan #1 symptoms of shortness of breath, appears to be secondary to A. fib with RVR, small left pleural effusion noted on chest x-ray #2 paroxysmal atrial fibrillation #3 hypertension #4 hypokalemia Plan Patient continues to be in atrial fibrillation with rapid ventricular response and continues to be symptomatic. We will start hold on the oral amiodarone this time and start the patient on IV amiodarone, once that has infused, we will start the patient on amiodarone 400 mg daily. In 3-4 weeks as an outpatient. We will again attempt cardioversion. DNP note has been reviewed, I agree with a documented findings and plan of care. Patient was seen and examined.
[2019-07-13 15:57] LABS: Calcium 8.7 mg/dL (8.4-10.2); Potassium 3.4 mmol/L (3.5-5.1)
[2019-07-13] MEDS ORDERED: POTASSIUM BICARBONATE/CIT AC 20 MEQ TABLET.EFF PO ONE (18:59)
[2019-07-13] MEDS: AMIODARONE 300 MG in DEXTROSE 5% IN WATER 250 ML IV SCH ×2 (20:53)
[2019-07-13] MEDS: ATORVASTATIN 20 MG TAB PO SCH (20:54)
[2019-07-13] MEDS: LORazepam 1 MG TAB PO SCH (20:54)
[2019-07-13] MEDS: HYDROcodone/APAP 7.5-325MG 1 EACH TAB PO PRN (20:54)
[2019-07-13] MEDS: MIRTAZAPINE 15 MG TAB PO SCH (20:54)
[2019-07-14] MEDS: AMIODARONE 300 MG in DEXTROSE 5% IN WATER 250 ML IV SCH ×2 (05:08)
[2019-07-14] MEDS: METOPROLOL TARTRATE 25 MG TAB PO SCH (05:08)
[2019-07-14] MEDS: FUROSEMIDE 40 MG TAB PO SCH (09:46)
[2019-07-14] MEDS: POTASSIUM CHLORIDE ER 20 MEQ TAB.ER PO SCH (09:46)
[2019-07-14] MEDS: RALOXIFENE 60 MG TAB PO SCH (09:46)
[2019-07-14] MEDS: APIXABAN 2.5 MG TABLET PO SCH ×2 (09:46→20:54)
[2019-07-14] MEDS: SODIUM CHLORIDE 0.9% 1,000 ML IV SCH (09:47)
[2019-07-14] MEDS: AMIODARONE 200 MG TAB PO SCH ×2 (11:33→20:54)
--- NOTE | 2019-07-14 13:44 | P.PN ---
Subjective Patient is resting comfortably in bed no dizziness lightheadedness or palpitations , mildly short of breath Breath sounds are clear no rhonchi no crackles she remains in atrial fibrillation She is on IV amiodarone for now On examination Blood pressure 134/91 mmHg pulse rate of 120-130 beats a minute Temperature 99.2 different 99 breath sounds are reduced bilaterally Heart sounds are irregular Impression Symptomatically atrial fibrillation with RVR Failed Multaq and electrical cardioversion with early recurrence Now on IV amiodarone We'll switch to oral amiodarone today 200 mg twice daily Would suggest repeat electrical cardioversion after one month of oral loading with amiodarone Increase the dose of metoprolol to 50 mrem twice daily Objective - Vital Signs Vital signs: Vital Signs Temp 99.2 F 07/14/19 08:00 Pulse 122 H 07/14/19 11:05 Resp 16 07/14/19 11:05 BP 134/91 07/14/19 11:05 Pulse Ox 94 L 07/14/19 11:05 Intake & Output 07/13/19 07/14/19 07/14/19 18:59 06:59 18:59 Intake Total 722 446.25 240 Balance 722 446.25 240 Weight 73.6 kg Intake: Intake, IV Titration 260 206.25 Amount Amiodarone 300 mg In 206.25 Dextrose 5% in Water 250 ml @ 0.5 MG/MIN 25 mls/hr IV .Q10H [facility] Rx#: [id number] Dextrose 5% in Water 100 100 ml @ 618 mls/hr IV .Q10M ONE with Amiodarone 150 mg Rx#:[id number] Sodium Chloride 0.9% 1, 160 000 ml @ 20 mls/hr IV . Q24H [facility] Rx#:[id number] Oral 462 240 240 Other: # Voids 2 1 - Labs CBC & Chem 7: 07/09/19 12:45 07/13/19 15:33 Labs: Abnormal Lab Results - Last 24 Hours (Table) 07/13/19 Range/Units 15:33 Potassium 3.4 L (3.5-5.1) mmol/L BUN 28 H (7-17) mg/dL Glucose 114 H (74-99) mg/dL
--- NOTE | 2019-07-14 19:33 | P.PN ---
Subjective Progress Note Date: 07/14/19 (delayed charting seen at 1400) Principal diagnosis: Shortness of breath Patient is a 89-year-old female with a past medical history of atrial fibrillation, congestive heart failure, hypertension, and osteoarthritis who presented to the emergency department for shortness of breath. On arrival to the emergency department she was found to have a heart rate of 131 her vital signs were otherwise stable. Initial laboratory analysis showed a slight increase in her creatinine to 1.16 with a baseline of approximately 0.9. Chest x-ray demonstrated mild cardiomegaly and left basilar atelectasis or early airspace disease. Initial troponin was negative. Chest x-ray showed left basilar atelectasis. Patient was placed on Cardizem drip. She was admitted for further evaluation of her A. fib with RVR. Initially she was resumed on her home metoprolol and Eliquis. She was seen by cardiology who maintained her home beta lily, continued her on a Cardizem drip, and added Multaq. Despite being started on multi patient continued to be in atrial fibrillation. She underwent an echocardiogram which showed an ejection fraction of 50-55%, mild aortic valvular disease with severe tricuspid regurgitation, and mild mitral regurgitation. She is on have mild pulmonary hypertension with an RVSP of 42.7. Due to her depression psychiatry was consulted. They diagnosed her with major depressive disorder, recurrent and recommended continuing Remeron 7.5 mg at night with an increase to 15 if patient is able to tolerate. They also recommended resources for senior activity clubs. On 07/12 she underwent cardioversion and initially converted back to sinus rhythm however on arrival back to the floor she again went into A. fib. Her multaq was subsequently discontinued and she was started on amiodarone. Her heart rate remained elevated on the morning of 07/13 she was seen by cardiology and arrangements were made to start IV amiodarone. She completed 24 hours of IV heparin on 07/14 remained in atrial fibrillation with rapid ventricular response. Patient seen and examined at bedside. She reports that she is feeling fatigued. She is frustrated with being in hospital. She denies any palpitations, chest pain, shortness of breath, nausea, lightheadedness, or presyncope. She states she wants to go home and is missing her dog. Objective - Vital Signs Vital signs: Vital Signs Temp 99.2 F 07/14/19 08:00 Pulse 126 H 07/14/19 15:05 Resp 16 07/14/19 15:05 BP 105/71 07/14/19 15:05 Pulse Ox 93 L 07/14/19 15:29 Intake & Output 07/14/19 07/14/19 07/15/19 06:59 18:59 06:59 Intake Total 446.25 600 Output Total 2000 Balance 446.25 -1400 Weight 73.6 kg Intake: Intake, IV Titration 206.25 Amount Amiodarone 300 mg In 206.25 Dextrose 5% in Water 250 ml @ 0.5 MG/MIN 25 mls/hr IV .Q10H DAXA Rx#: [id number] Oral 240 600 Output: Urine 2000 Other: # Voids 1 - Exam General: non toxic, no distress, appears younger than stated age Derm: warm, dry Head: atraumatic, normocephalic, symmetric Eyes: EOMI, no lid lag, anicteric sclera Mouth: no lip lesion, mucus membranes moist Cardiovascular: S1S2 irreg tachy, no murmur, positive posterior tibial pulse bilateral, Lungs: CTA bilateral, no rhonchi, no rales , no accessory muscle use Abdominal: soft, nontender to palpation, no guarding, no appreciable organomegaly Ext: no gross muscle atrophy, no edema, no contractures Neuro: CN II-XI grossly intact, no focal neuro deficits Psych: Alert, oriented, flat affect, keeps eyes closed during our conversation - Labs CBC & Chem 7: 07/09/19 12:45 07/13/19 15:33 Assessment and Plan Assessment: Atrial fibrillation with rapid ventricular response -Status post cardioversion 07/12 with return to atrial fibrillation -amio gtt completed on oral amiodarone, metoprolol increased -Cardiology recommendations -Telemetry - eliquis Diastolic congestive heart failure without acute exacerbation, ejection fraction 50-55% - Strict I and O - daily weights - laisx, lopressor - not on a ACEI no indication for one Situational depression - psych recs - remeron - outpatient counseling Hypertension - controlled - follow BP - continue current Acute kidney injury, resolved DVT prophylaxis: Eliquis Discussed with: Patient, nursing Anticipated discharge: 1-[address]: home with home health A total of 25 minutes was spent on the care of this complex patient more than 50% of the time was spent in counseling and care coordination.
[2019-07-14] MEDS: LORazepam 1 MG TAB PO SCH (20:54)
[2019-07-14] MEDS: MIRTAZAPINE 15 MG TAB PO SCH (20:54)
[2019-07-14] MEDS: HYDROcodone/APAP 7.5-325MG 1 EACH TAB PO PRN (20:54)
[2019-07-14] MEDS: METOPROLOL TARTRATE 50 MG TAB PO SCH (20:54)
[2019-07-15 06:13] LABS: HCT 43.5 % (34.0-46.0); HGB 14.1 gm/dL (11.4-16.0); Hypochromasia Slight; MCH 30.8 pg (25.0-35.0); MCHC 32.4 g/dL (31.0-37.0); MCV 95.2 fL (80.0-100.0); Mean Platelet Volume 6.3; Platelet Count 285 k/uL (150-450); RBC 4.57 m/uL (3.80-5.40); RDW 13.7 % (11.5-15.5); WBC 13.5 k/uL (3.8-10.6)
[2019-07-15 06:22] LABS: Magnesium 2.2 mg/dL (1.6-2.3); Potassium 3.9 mmol/L (3.5-5.1)
[2019-07-15] MEDS: HYDROcodone/APAP 7.5-325MG 1 EACH TAB PO PRN ×3 (06:37→20:40)
--- NOTE | 2019-07-15 08:39 | XR ---
EXAMINATION TYPE: XR chest 1V DATE OF EXAM: 07/15/2019 HISTORY: chest pain. REFERENCE: Previous study dated 07/09/2019. 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 The heart is enlarged. There is left basilar airspace disease. There is a left-sided effusion. IMPRESSION: 1. WORSENING LEFT BASILAR AIRSPACE DISEASE. 2. WORSENING LEFT EFFUSION.
[2019-07-15] MEDS: APIXABAN 2.5 MG TABLET PO SCH ×2 (09:19→20:37)
[2019-07-15] MEDS: FUROSEMIDE 40 MG TAB PO SCH (09:19)
[2019-07-15] MEDS: AMIODARONE 200 MG TAB PO SCH ×2 (09:19→20:37)
[2019-07-15] MEDS: METOPROLOL TARTRATE 50 MG TAB PO SCH ×3 (09:19→20:38)
[2019-07-15] MEDS: SODIUM CHLORIDE 0.9% 1,000 ML IV SCH (11:53)
[2019-07-15] MEDS: RALOXIFENE 60 MG TAB PO SCH (12:23)
[2019-07-15] MEDS ORDERED: FUROSEMIDE 10 MG/ML 2 ML VIAL IV ONE (12:56)
--- NOTE | 2019-07-15 12:57 | P.PN ---
Subjective Progress Note Date: 07/15/19 (delayed charting seen at 0830) Principal diagnosis: Shortness of breath Patient is a 89-year-old female with a past medical history of atrial fibrillation, congestive heart failure, hypertension, and osteoarthritis who presented to the emergency department for shortness of breath. On arrival to the emergency department she was found to have a heart rate of 131 her vital signs were otherwise stable. Initial laboratory analysis showed a slight increase in her creatinine to 1.16 with a baseline of approximately 0.9. Chest x-ray demonstrated mild cardiomegaly and left basilar atelectasis or early airspace disease. Initial troponin was negative. Chest x-ray showed left basilar atelectasis. Patient was placed on Cardizem drip. She was admitted for further evaluation of her A. fib with RVR. Initially she was resumed on her home metoprolol and Eliquis. She was seen by cardiology who maintained her home beta lily, continued her on a Cardizem drip, and added Multaq. Despite being started on multi patient continued to be in atrial fibrillation. She underwent an echocardiogram which showed an ejection fraction of 50-55%, mild aortic valvular disease with severe tricuspid regurgitation, and mild mitral regurgitation. She is on have mild pulmonary hypertension with an RVSP of 42.7. Due to her depression psychiatry was consulted. They diagnosed her with major depressive disorder, recurrent and recommended continuing Remeron 7.5 mg at night with an increase to 15 if patient is able to tolerate. They also recommended resources for senior activity clubs. On 07/12 she underwent cardioversion and initially converted back to sinus rhythm however on arrival back to the floor she again went into A. fib. Her multaq was subsequently discontinued and she was started on amiodarone. Her heart rate remained elevated on the morning of 07/13 she was seen by cardiology and arrangements were made to start IV amiodarone. She completed 24 hours of IV heparin on 07/14 remained in atrial fibrillation with rapid ventricular response. on 07/15 metoprolol increased to TID. CXR whos left sided infilatrat, due to continued A fib adn incerased WBC will add doxycycline and cefdinir. Patient seen and examined at bedside. No chest pain, no shortness of breath, not light headed, no fatigue, feeling better today. Objective - Vital Signs Vital signs: Vital Signs Temp 98.2 F 07/15/19 08:00 Pulse 141 H 07/15/19 12:00 Resp 14 07/15/19 12:00 BP 132/75 07/15/19 08:00 Pulse Ox 95 07/15/19 08:00 Intake & Output 07/14/19 07/15/19 07/15/19 18:59 06:59 18:59 Intake Total 600 440 Output Total 2000 500 Balance -1400 -500 440 Weight 73.2 kg Intake: Intake, IV Titration 80 Amount Sodium Chloride 0.9% 1, 80 000 ml @ 20 mls/hr IV . Q24H DAAX Rx#:[id number] Oral 600 360 Output: Urine 2000 500 Other: # Voids 1 3 - Exam General: non toxic, no distress, appears younger than stated age Derm: warm, dry Head: atraumatic, normocephalic, symmetric Eyes: EOMI, no lid lag, anicteric sclera Mouth: no lip lesion, mucus membranes moist Cardiovascular: S1S2 irreg tachy, no murmur, positive posterior tibial pulse bilateral, Lungs: rhonchi bilateral bases , no accessory muscle use Abdominal: soft, nontender to palpation, no guarding, no appreciable organom egaly Ext: no gross muscle atrophy, no edema, no contractures Neuro: CN II-XI grossly intact, no focal neuro deficits Psych: Alert, oriented, flat affect, keeps eyes closed during our conversation - Labs CBC & Chem 7: 07/15/19 06:04 07/15/19 06:04 Labs: Abnormal Lab Results - Last 24 Hours (Table) 07/15/19 07/15/19 Range/Units 06:04 06:04 WBC 13.5 H (3.8-10.6) k/uL BUN 23 H (7-17) mg/dL Assessment and Plan Assessment: Atrial fibrillation with rapid ventricular response -Status post cardioversion 07/12 with return to atrial fibrillation -amio gtt completed on oral amiodarone, metoprolol increased again 07/15 -Cardiology recommendations -Telemetry - eliquis probable left sided PNA - doxycyline and vefdinir due to A fib - CXR till clear - Pulm hygiene - Associated left sided effusion will add 1 dose of IV lasix Diastolic congestive heart failure without acute exacerbation, ejection fraction 50-55% - Strict I and O - daily weights - laisx, lopressor - not on a ACEI no indication for one Situational depression - psych recs - remeron - outpatient counseling Hypertension - controlled - follow BP - continue current Acute kidney injury, resolved Patient insists that she is leaving tomorrow no matter what. Home health set up. DVT prophylaxis: Timothy Discussed with: Patient, nursing, cardio Anticipated discharge: 1-[address]: home with home health A total of 25 minutes was spent on the care of this complex patient more than 50% of the time was spent in counseling and care coordination.
--- NOTE | 2019-07-15 14:42 | P.PN ---
Subjective Progress Note Date: 07/15/19 This is an 88-year-old female who follows with Dr. Travis Caldwell in the office, she has a past medical history significant for hypertension, paroxysmal atrial fibrillation, hypertension. She presented to the hospital with symptoms of progressively worsening weakness as well as associated shortness of breath. According to the patient, she did take some extra Lasix at home prior to coming into the hospital. Patient denies feeling her heart racing fast, but does notice when she exerts herself a minimally that she has quite short of breath, much worse than recent. Her blood pressure on arrival here 126/80 with a heart rate of 130, afebrile, 97% on room air. She was initiated on IV Cardizem, her heart rate this morning 106 on 10 mg of Cardizem. White blood cell count 8.9, hemoglobin 14.5, platelet count 280. Sodium 142, potassium 3.5, BUN 30, creatinine 0.8, magnesium 2.1. Troponins are negative 3. Patient did have an echocardiogram with Doppler study performed in January which revealed an ejection fraction of 55-60%. Moderate aortic regurgitation, moderate mitral regurgitation. Patient did have a recent hospitalization in January of this year with very similar symptoms, she was found to be in A. fib with RVR at that time as well. Her home medications included Lipitor 20 mg every other day, Evista, Lopressor 50 twice a day, Lasix 40 mg daily, potassium 20 mEq every other day an d Eliquis 2.5 mg twice a day. At the time of my examination this morning, patient does feel mildly short of breath, continues to feel weak. 07/11/2019 Patient was seen and examined this morning, continues to be in atrial fibrillation. She continues to feel short of breath, mildly weak. Blood pre ssure 122/90, heart rate 1:15. Sodium 142, potassium 3.5, BUN 30 and creatinine 0.8. 07/13/2009 Patient seen and examined this morning, mildly short of breath. Continues to be in atrial fibrillation, heart rate in the 120s to 130s. Blood pressure 110/68. 07/15: Patient continues to have elevated heart rates up to the 140s with activity, atrial fibrillation. Patient is currently on amiodarone 200 mg twice daily and Lopressor 50 mg twice daily. WBC 13.5, creatinine 0.89. The patient states that because she is feeling so lousy she has decided that she stay but has been requesting to go home. Chest x-ray reveals worsening left basilar airspace disease and worsening left effusion. Patient received 1 dose of IV Lasix. She denies any current shortness of breath. PHYSICAL EXAMINATION: GENERAL: 89-year-old female in no acute distress at the time of my examination HEENT: Head is atraumatic, normocephalic. Pupils equal, round. Sclera anicteric. Conjunctiva are clear. Mucous membranes of the mouth are moist. Neck is supple. There is no elevated jugular venous pressure. No carotid bruit is heard. HEART EXAMINATION: Heart S1 and S2 irregularly irregular a systolic murmur CHEST EXAMINATION: Lungs are clear to auscultation and precussion. No chest wall tenderness is noted on palpation or with deep breathing. ABDOMEN: Soft, nontender. Bowel sounds are heard. No organomegaly noted. EXTREMITIES: 2+ peripheral pulses with no evidence of peripheral edema and no ca lf tenderness noted. NEUROLOGIC patient is awake, alert and oriented 3. ssessment and plan Atrial fibrillation with RVR Pleural effusion on chest x-ray Paroxysmal atrial fibrillation Hypertension Hypokalemia Plan Continue amiodarone 200 mg twice daily, eliquis 2.5 mg twice daily Increase Lopressor frequency to 50 mg 3 times daily Continue cardiac monitoring Patient received 1 dose of IV Lasix this morning Monitor I&O and daily weights Further recommendations to follow based on clinical course Nurse practitioner note has been reviewed, I agree with documented findings and plan of care. Patient was seen and examined. Objective - Vital Signs Vital signs: Vital Signs Temp 98 F 07/15/19 02:53 Pulse 128 H 07/15/19 02:53 Resp 20 07/15/19 02:53 BP 132/74 07/15/19 02:53 Pulse Ox 96 07/15/19 02:53 Intake & Output 07/14/19 07/15/19 07/15/19 18:59 06:59 18:59 Intake Total 600 360 Output Total 2000 500 Balance -1400 -500 360 Weight 73.2 kg Intake: Oral 600 360 Output: Urine 2000 500 Other: # Voids 1 - Labs CBC & Chem 7: 07/15/19 06:04 07/15/19 06:04 Labs: Abnormal Lab Results - Last 24 Hours (Table) 07/15/19 07/15/19 Range/Units 06:04 06:04 WBC 13.5 H (3.8-10.6) k/uL BUN 23 H (7-17) mg/dL
[2019-07-15] MEDS ORDERED: FUROSEMIDE 40 MG TAB PO STA (14:58)
[2019-07-15] MEDS: DOXYCYCLINE 100 MG CAP PO SCH ×2 (15:05→20:37)
[2019-07-15] MEDS: CEFDINIR 300 MG CAP PO SCH ×2 (15:05→20:37)
[2019-07-15] MEDS: ATORVASTATIN 20 MG TAB PO SCH (20:37)
[2019-07-15] MEDS: LORazepam 1 MG TAB PO SCH (20:37)
[2019-07-15] MEDS: MIRTAZAPINE 15 MG TAB PO SCH (20:37)
[2019-07-16 06:53] LABS: HCT 41.9 % (34.0-46.0); HGB 13.4 gm/dL (11.4-16.0); Hypochromasia Slight; MCH 30.3 pg (25.0-35.0); MCHC 32.1 g/dL (31.0-37.0); MCV 94.4 fL (80.0-100.0); Mean Platelet Volume 6.4; Platelet Count 290 k/uL (150-450); RBC 4.43 m/uL (3.80-5.40); RDW 13.5 % (11.5-15.5); WBC 11.7 k/uL (3.8-10.6)
[2019-07-16 07:03] LABS: Calcium 8.6 mg/dL (8.4-10.2); Magnesium 2.1 mg/dL (1.6-2.3); Potassium 3.8 mmol/L (3.5-5.1)
[2019-07-16] MEDS: POTASSIUM CHLORIDE ER 20 MEQ TAB.ER PO SCH (08:34)
[2019-07-16] MEDS: AMIODARONE 200 MG TAB PO SCH ×2 (08:34→20:29)
[2019-07-16] MEDS: APIXABAN 2.5 MG TABLET PO SCH ×2 (08:34→20:29)
[2019-07-16] MEDS: RALOXIFENE 60 MG TAB PO SCH (08:34)
[2019-07-16] MEDS: DOXYCYCLINE 100 MG CAP PO SCH ×2 (08:35→20:29)
[2019-07-16] MEDS: FUROSEMIDE 40 MG TAB PO SCH (08:35)
[2019-07-16] MEDS: CEFDINIR 300 MG CAP PO SCH ×2 (08:35→20:29)
[2019-07-16] MEDS: METOPROLOL TARTRATE 50 MG TAB PO SCH ×3 (08:35→20:30)
[2019-07-16] MEDS: SODIUM CHLORIDE 0.9% 1,000 ML IV SCH (08:37)
--- NOTE | 2019-07-16 10:02 | P.PN ---
Subjective Progress Note Date: 07/16/19 This is an 89-year-old female with a PMH of A. fib, systolic CHF, hypertension, and OA who presented to the ED with complaints of shortness of breath. In the ED, she was noted to be in A. fib with RVR and had an increase in her creatinine from baseline. The patient's initial troponin was negative and she was started on a Cardizem infusion and admitted for further management. She was resumed on her home metoprolol and Eliquis. Cardiology was consulted and recommended continuing the beta lily along with a Cardizem drip and was started on Multaq. Patient A. fib however persisted. Furthermore, psychiatry was consulted due to the patient's depression for which they recommended increasing the patient's Remeron 15 mg daily at bedtime as tolerated. The Multaq was subsequently discontinued and the patient was initiated on amiodarone IV. The patient however continued to be in RVR for which her Lopressor dose was increased to 3 times a day. The patient was also suspected to have pneumonia fo r which she was started on doxycycline and Cefdinir. The patient was seen and examined at the bedside on 07/16. She reported continued palpitations especially upon activity. She however denied complaints of chest discomfort, shortness of breath, nausea, vomiting, or dizziness. Objective - Vital Signs Vital signs: Vital Signs Temp 98.3 F 07/16/19 04:00 Pulse 117 H 07/16/19 04:00 Resp 16 07/16/19 04:00 BP 107/61 07/16/19 04:00 Pulse Ox 96 07/16/19 04:00 Intake & Output 07/15/19 07/16/19 07/16/19 18:59 06:59 18:59 Intake Total 1160 240 Balance 1160 240 Weight 73.2 kg Intake: Intake, IV Titration 80 Amount Sodium Chloride 0.9% 1, 80 000 ml @ 20 mls/hr IV . Q24H DAXA Rx#:[id number] Oral 1080 240 Other: # Voids 3 2 - Exam General: Non-toxic, in no acute distress, appears younger than stated age, normal weight HEENT: NC/AT, anicteric sclerae, moist conjunctiva, no lid-lag, PERRLA Cardiovascular: S1/S2 wnl, no murmurs, rubs, or gallops Lungs: Clear to auscultation, normal respiratory effort, no accessory muscle use Abdominal: Soft, non-tender, non-distended, no guarding, rebound, or rigidity Skin: Warm, dry Extremities: No edema or contractures Psychiatric: Alert and oriented to person, place and time, appropriate affect Neuro: CN II-XII grossly intact, no focal deficits - Labs CBC & Chem 7: 07/16/19 06:12 07/16/19 06:12 Labs: Abnormal Lab Results - Last 24 Hours (Table) 07/16/19 07/16/19 Range/Units 06:12 06:12 WBC 11.7 H (3.8-10.6) k/uL BUN 23 H (7-17) mg/dL Glucose 103 H (74-99) mg/dL Assessment and Plan Plan: A. fib with RVR -S/p Multaq and Cardioversion 07/12 w/ return to Afib -Currently on amiodarone and Lopressor -Continue with telemetry -Cardiology recommendations appreciated -Continue with Eliquis Pneumonia -Continue with Cefdinir and doxycycline Diastolic CHF, not in acute exacerbation -Continue with intake and output -Daily weights -Continue with Lasix and Lopressor Situational depression -Continue with Remeron Hypertension -Controlled for now VIANEY, resolved DVT prophylaxis -Eliquis Discussed with: Patient Anticipated discharge date: 1-[address]: Home A total of 35 minutes was spent on the care of this complex patient more than 50% of the time was spent in counseling and care coordination.
[2019-07-16] MEDS: HYDROcodone/APAP 7.5-325MG 1 EACH TAB PO PRN ×2 (11:16→20:30)
--- NOTE | 2019-07-16 12:21 | P.PN ---
Subjective Progress Note Date: 07/16/19 This is an 88-year-old female who follows with Dr. Travis Caldwell in the office, she has a past medical history significant for hypertension, paroxysmal atrial fibrillation, hypertension. She presented to the hospital with symptoms of progressively worsening weakness as well as associated shortness of breath. According to the patient, she did take some extra Lasix at home prior to coming into the hospital. Patient denies feeling her heart racing fast, but does notice when she exerts herself a minimally that she has quite short of breath, much worse than recent. Her blood pressure on arrival here 126/80 with a heart rate of 130, afebrile, 97% on room air. She was initiated on IV Cardizem, her heart rate this morning 106 on 10 mg of Cardizem. White blood cell count 8.9, hemoglobin 14.5, platelet count 280. Sodium 142, potassium 3.5, BUN 30, creatinine 0.8, magnesium 2.1. Troponins are negative 3. Patient did have an echocardiogram with Doppler study performed in January which revealed an ejection fraction of 55-60%. Moderate aortic regurgitation, moderate mitral regurgitation. Patient did have a recent hospitalization in January of this year with very similar symptoms, she was found to be in A. fib with RVR at that time as well. Her home medications included Lipitor 20 mg every other day, Evista, Lopressor 50 twice a day, Lasix 40 mg daily, potassium 20 mEq every other day an d Eliquis 2.5 mg twice a day. At the time of my examination this morning, patient does feel mildly short of breath, continues to feel weak. 07/11/2019 Patient was seen and examined this morning, continues to be in atrial fibrillation. She continues to feel short of breath, mildly weak. Blood pre ssure 122/90, heart rate 1:15. Sodium 142, potassium 3.5, BUN 30 and creatinine 0.8. 07/13/2009 Patient seen and examined this morning, mildly short of breath. Continues to be in atrial fibrillation, heart rate in the 120s to 130s. Blood pressure 110/68. 07/15: Patient continues to have elevated heart rates up to the 140s with activity, atrial fibrillation. Patient is currently on amiodarone 200 mg twice daily and Lopressor 50 mg twice daily. WBC 13.5, creatinine 0.89. The patient states that because she is feeling so lousy she has decided that she stay but has been requesting to go home. Chest x-ray reveals worsening left basilar airspace disease and worsening left effusion. Patient received 1 dose of IV Lasix. She denies any current shortness of breath. 07/16: Patient remains in atrial fibrillation. Heart rate mostly in the 100-110 range. Shortness of breath appears to be stable. She denies any chest pain, shortness of breath, lightheadedness or dizziness. Patient will be continued on same medications. She is clear for discharge from cardiology. PHYSICAL EXAMINATION: GENERAL: 89-year-old female in no acute distress at the time of my examination Afebrile, heart rate 117, blood pressure 107/61, pulse ox 96% on 2 L nasal cannula HEENT: Head is atraumatic, normocephalic. Pupils equal, round. Sclera anicteric. Conjunctiva are clear. Mucous membranes of the mouth are moist. Neck is supple. There is no elevated jugular venous pressure. No carotid bruit is heard. HEART EXAMINATION: Heart S1 and S2 irregularly irregular a systolic murmur CHEST EXAMINATION: Lungs are clear to auscultation and precussion. No chest wall tenderness is noted on palpation or with deep breathing. ABDOMEN: Soft, nontender. Bowel sounds are heard. No organomegaly noted. EXTREMITIES: 2+ peripheral pulses with no evidence of peripheral edema and no calf tenderness noted. NEUROLOGIC patient is awake, alert and oriented 3. Assessment and plan Atrial fibrillation with RVR, now mildly elevated Pleural effusion on chest x-ray Paroxysmal atrial fibrillation Hypertension Hypokalemia Plan Continue amiodarone 200 mg twice daily, eliquis 2.5 mg twice daily Continue Lopressor at new frequency 50 mg 3 times daily Continue cardiac monitoring Monitor I&O and daily weights Patient is cleared for discharge from cardiology with current medications Further recommendations to follow based on clinical course Nurse practitioner note has been reviewed, I agree with documented findings and plan of care. Patient was seen and examined. Objective - Vital Signs Vital signs: Vital Signs Temp 98.3 F 07/16/19 04:00 Pulse 117 H 07/16/19 04:00 Resp 16 07/16/19 04:00 BP 107/61 07/16/19 04:00 Pulse Ox 96 07/16/19 04:00 Intake & Output 07/15/19 07/16/19 07/16/19 18:59 06:59 18:59 Intake Total 1160 240 Balance 1160 240 Weight 73.2 kg Intake: Intake, IV Titration 80 Amount Sodium Chloride 0.9% 1, 80 000 ml @ 20 mls/hr IV . Q24H DAXA Rx#:[id number] Oral 1080 240 Other: # Voids 3 2 - Labs CBC & Chem 7: 07/16/19 06:12 07/16/19 06:12 Labs: Abnormal Lab Results - Last 24 Hours (Table) 07/16/19 07/16/19 Range/Units 06:12 06:12 WBC 11.7 H (3.8-10.6) k/uL BUN 23 H (7-17) mg/dL Glucose 103 H (74-99) mg/dL
[2019-07-16] MEDS: LORazepam 1 MG TAB PO SCH (20:29)
[2019-07-16] MEDS: MIRTAZAPINE 15 MG TAB PO SCH (20:30)
[2019-07-17 05:19] VITALS: RESP 16
[2019-07-17] MEDS: AMIODARONE 200 MG TAB PO SCH (08:27)
[2019-07-17] MEDS: CEFDINIR 300 MG CAP PO SCH (08:27)
[2019-07-17] MEDS: FUROSEMIDE 40 MG TAB PO SCH (08:27)
[2019-07-17] MEDS: APIXABAN 2.5 MG TABLET PO SCH (08:27)
[2019-07-17] MEDS: RALOXIFENE 60 MG TAB PO SCH (08:27)
[2019-07-17] MEDS: METOPROLOL TARTRATE 50 MG TAB PO SCH ×2 (08:27→15:57)
[2019-07-17] MEDS: DOXYCYCLINE 100 MG CAP PO SCH (08:27)
[2019-07-17 09:31] VITALS: PULSE 112; TEMP 97.9
[2019-07-17] MEDS: SODIUM CHLORIDE 0.9% 1,000 ML IV SCH (10:47)
--- NOTE | 2019-07-17 11:02 | P.PN ---
Subjective Progress Note Date: 07/17/19 This is an 88-year-old female who follows with Dr. Travis Caldwell in the office, she has a past medical history significant for hypertension, paroxysmal atrial fibrillation, hypertension. She presented to the hospital with symptoms of progressively worsening weakness as well as associated shortness of breath. According to the patient, she did take some extra Lasix at home prior to coming into the hospital. Patient denies feeling her heart racing fast, but does notice when she exerts herself a minimally that she has quite short of breath, much worse than recent. Her blood pressure on arrival here 126/80 with a heart rate of 130, afebrile, 97% on room air. She was initiated on IV Cardizem, her heart rate this morning 106 on 10 mg of Cardizem. White blood cell count 8.9, hemoglobin 14.5, platelet count 280. Sodium 142, potassium 3.5, BUN 30, creatinine 0.8, magnesium 2.1. Troponins are negative 3. Patient did have an echocardiogram with Doppler study performed in January which revealed an ejection fraction of 55-60%. Moderate aortic regurgitation, moderate mitral regurgitation. Patient did have a recent hospitalization in January of this year with very similar symptoms, she was found to be in A. fib with RVR at that time as well. Her home medications included Lipitor 20 mg every other day, Evista, Lopressor 50 twice a day, Lasix 40 mg daily, potassium 20 mEq every other day an d Eliquis 2.5 mg twice a day. At the time of my examination this morning, patient does feel mildly short of breath, continues to feel weak. 07/11/2019 Patient was seen and examined this morning, continues to be in atrial fibrillation. She continues to feel short of breath, mildly weak. Blood pr essure 122/90, heart rate 1:15. Sodium 142, potassium 3.5, BUN 30 and creatinine 0.8. 07/13/2019 Patient seen and examined this morning, mildly short of breath. Continues to be in atrial fibrillation, heart rate in the 120s to 130s. Blood pressure 110/68. 07/17/2019 Patient seen and examined this morning, feels well, no complaints, her breathing is stable, she denies any palpitations. Currently on amiodarone, beta lily, and Eliquis. Heart rate today is in the 80-90 range. Blood pressure 115/80, 97% on room air. Sodium 141, potassium 3.7, BUN 23 and creatinine 0.9, magnesium 2.1. White blood cell count 11.7, hemoglobin 13.4, platelet count 290 Objective - Vital Signs Vital signs: Vital Signs Temp 97.9 F 07/17/19 08:00 Pulse 112 H 07/17/19 08:00 Resp 16 07/17/19 08:00 BP 115/81 07/17/19 08:00 Pulse Ox 97 07/17/19 08:00 Intake & Output 07/16/19 07/17/19 07/17/19 18:59 06:59 18:59 Intake Total 660 240 240 Output Total 800 Balance 660 -560 240 Weight 73 kg Intake: Oral 660 240 240 Output: Urine 800 Other: Voiding Method Toilet Toilet # Voids 2 # Bowel Movements 1 - Exam PHYSICAL EXAMINATION: GENERAL: 89-year-old female in no acute distress at the time of my examination HEENT: Head is atraumatic, normocephalic. Pupils equal, round. Sclera anicteric. Conjunctiva are clear. Mucous membranes of the mouth are moist. Neck is supple. There is no elevated jugular venous pressure. No carotid bruit is heard. HEART EXAMINATION: Heart S1 and S2 irregularly irregular a systolic murmur is heard CHEST EXAMINATION: Lungs are clear to auscultation and precussion. No chest wall tenderness is noted on palpation or with deep breathing. ABDOMEN: Soft, nontender. Bowel sounds are heard. No organomegaly noted. EXTREMITIES: 2+ peripheral pulses with no evidence of peripheral edema and no calf tenderness noted. NEUROLOGIC patient is awake, alert and oriented 3 . . - Labs CBC & Chem 7: 07/16/19 06:12 07/16/19 06:12 Assessment and Plan Plan: ssessment and plan #1 symptoms of shortness of breath, appears to be secondary to A. fib with RVR, small left pleural effusion noted on chest x-ray #2 paroxysmal atrial fibrillation #3 hypertension #4 hypokalemia Plan From Cardiology's perspective, we'll recommend to continue the patient on her current medications. She may be able to be discharged home once cleared by primary doctor. Follow-up appointment with Dr. Travis Caldwell in the office post discharge. DNP note has been reviewed, I agree with a documented findings and plan of care. Patient was seen and examined.
[2019-07-17 12:18] VITALS: BP 128/82
--- NOTE | 2019-07-17 15:28 | P.DS ---
Providers Date of admission: 07/11/19 13:44 Expected date of discharge: 07/17/19 Attending physician: Roxanne Muniz DO Consults: 07/09/19 14:11 Consult Physician Urgent Consulting Provider: [facility] Consult Reason/Comments: A. fib with rapid ventricular response Do you want consulting provider notified?: Yes 07/09/19 16:43 Consult Physician Routine Consulting Provider: Andrea Reyes Consult Reason/Comments: depression Do you want consulting provider notified?: Already Contacted Primary care physician: Quinn [facility] Course: Patient is a 89-year-old female with a past medical history of atrial fibrillation, congestive heart failure, hypertension, and osteoarthritis who presented to the emergency department for shortness of breath. On arrival to the emergency department she was found to have a heart rate of 131 her vital signs were otherwise stable. Initial laboratory analysis showed a slight increase in her creatinine to 1.16 with a baseline of approximately 0.9. Chest x-ray demonstrated mild cardiomegaly and left basilar atelectasis or early airspace disease. Initial troponin was negative. Chest x-ray showed left basi lar atelectasis. Patient was placed on Cardizem drip. She was admitted for further evaluation of her A. fib with RVR. Initially she was resumed on her home metoprolol and Eliquis. She was seen by cardiology who maintained her home beta lily, continued her on a Cardizem drip, and added Multaq. Despite being started on multi patient continued to be in atrial fibrillation. She underwent an echocardiogram which showed an ejection fraction of 50-55%, mild aortic valvular disease with severe tricuspid regurgitation, and mild mitral regurgitation. She is on have mild pulmonary hypertension with an RVSP of 42.7. Due to her depression psychiatry was consulted. They diagnosed her with major depressive disorder, recurrent and recommended continuing Remeron 7.5 mg at night with an increase to 15 if patient is able to tolerate. They also recommended resources for senior activity clubs. On 07/12 she underwent cardioversion and initially converted back to sinus rhythm however on arrival back to the floor she again went into A. fib. Her multaq was subsequently discontinued and she was started on amiodarone. Her heart rate remained elevated on the morning of 07/13 she was seen by cardiology and arrangements were made to start IV amiodarone. She completed 24 hours of IV heparin on 07/14 remained in atrial fibrillation with rapid ventricular response. on 07/15 metoprolol increased to TID. CXR whos left sided infilatrat, due to continued A fib an increased WBC will add doxycycline and cefdinir. Since his start of antibiotics her white count to start improving and clinically also she was improving. It was very difficult to control patient's heart rate and she was started on high-dose amiodarone 400 mg daily in divided doses and that has controlled her heart rate slightly better. Patient's metoprolol dose has been increased to 3 times a day and she was continued on anticoagulation with Eliquis. Today patient is being cleared for discharge by cardiology service and she had home O2 evaluation done and she does not qualify. Physical therapy also evaluated her and she was declared safe for discharge home with home care. Patient has appointment with Dr. Dailey in 1-[address] Whitfield on 07/24/2019. Patient will be discharged today on current medication with instruction to decrease the dose of amiodarone in one week after discussing it with Dr. Whitfield on the post discharge appointment. Assessment: Objective: VSS, aferile. Coarse central crackles, no wheezes, Irregular heart rate, Benign abdomen and trace lower extremity edema with multiple bruises and fragile skin. Assessment and Plan A. fib with RVR -S/p Multaq and Cardioversion 07/12 w/ return to Afib -Currently on amiodarone and Lopressor -Cardiology recommendations appreciated -Continue with Eliquis Pneumonia -Continue with Cefdinir and doxycycline total of 10 days. Diastolic CHF, not in acute exacerbation -Continue with intake and output -Daily weights -Continue with Lasix and Lopressor Situational depression -Continue with Remeron Hypertension -Controlled for now VIANEY, resolved Health Concerns: Message to Dr. DAILEY, pt. is on high dose AMIODARONE at discharge, please coordinate with Dr. Whitfield (apt. 07/24/2019) re: dose adjustment. I have advised her to take current dose for ONE week and then once daily or as per recommendations from Dr. WHITFIELD on her f/u visit next week. Pertinent Studies: Echocardiogram done reported as left ventricle size normal, mild concentric left ventricular hypertrophy, 50-55% ejection fraction, left atrial severely dilated more than 40 mm/m, right atrium mildly enlarged, mild aortic regurgitation and stenosis, mitral valve leaflets mildly thickened, moderately MR, tricuspid valve structurally normal appearing, severe tricuspid regurgitation, mild pulmonary hypertension. Please see full report for complete details. Procedures: Cardioversion attempted 07/12/2019. Patient Condition at Discharge: Fair Plan - Discharge Summary Discharge Rx Participant: Yes New Discharge Prescriptions: New Amiodarone [Cordarone] 200 mg PO BID 30 Days #37 tab Metoprolol Tartrate [Lopressor] 50 mg PO TID 30 Days #90 tab Nitroglycerin Sl Tabs [Nitrostat] 0.4 mg SUBLINGUAL Q5M PRN tab PRN Reason: Chest Pain Cefdinir [Omnicef] 300 mg PO BID 8 Days #16 cap Doxycycline [Vibramycin] 100 mg PO BID 8 Days #16 cap Mirtazapine [Remeron] 7.5 mg PO HS 30 Days #30 tab Continue Raloxifene [Evista] 60 mg PO DAILY LORazepam [Ativan] 1 mg PO HS Apixaban [Eliquis] 2.5 mg PO BID #60 tablet Potassium Chloride [K-Tab ER] 20 meq PO Q48H Furosemide [Lasix] 40 mg PO QAM Atorvastatin [Lipitor] 20 mg PO Q48H HYDROcodone/APAP 7.5-325MG [[place] 7.5-325] 1 tab PO Q6H PRN PRN Reason: Pain Discontinued Metoprolol Tartrate [Lopressor] 50 mg PO BID Discharge Medication List Raloxifene [Evista] 60 mg PO DAILY 10/24/15 [History] LORazepam [Ativan] 1 mg PO HS 05/31/18 [History] Apixaban [Eliquis] 2.5 mg PO BID #60 tablet 06/09/18 [Rx] Furosemide [Lasix] 40 mg PO QAM 11/10/18 [History] Potassium Chloride [K-Tab ER] 20 meq PO Q48H 11/10/18 [History] Atorvastatin [Lipitor] 20 mg PO Q48H 07/09/19 [History] HYDROcodone/APAP 7.5-325MG [[place] 7.5-325] 1 tab PO Q6H PRN 07/11/19 [History] Amiodarone [Cordarone] 200 mg PO BID 30 Days #37 tab 07/17/19 [Rx] Cefdinir [Omnicef] 300 mg PO BID 8 Days #16 cap 07/17/19 [Rx] Doxycycline [Vibramycin] 100 mg PO BID 8 Days #16 cap 07/17/19 [Rx] Metoprolol Tartrate [Lopressor] 50 mg PO TID 30 Days #90 tab 07/17/19 [Rx] Mirtazapine [Remeron] 7.5 mg PO HS 30 Days #30 tab 07/17/19 [Rx] Nitroglycerin Sl Tabs [Nitrostat] 0.4 mg SUBLINGUAL Q5M PRN tab 07/17/19 [Rx] Follow up Appointment(s)/Referral(s): Quinn Dailey MD [Primary Care Provider] - 07/20/19 10:30 am Veronica Whitfield MD [STAFF PHYSICIAN] - 07/24/19 2:45 pm () [facility] Visiting Nurse, [NON-STAFF] - Patient Instructions/Handouts: A-fib (Atrial Fibrillation) (DC), Depression (DC), Safe Use of Anticoagulants (DC) Discharge Disposition: HOME WITH HOME HEALTH SERVICES Plan of Treatment: Message to Dr. DAILEY, pt. is on high dose AMIODARONE at discharge, please coordinate with Dr. Whitfield (apt. 07/24/2019) re: dose adjustment. I have advised her to take current dose for ONE week and then once daily or as per recommendations from Dr. WHITFIELD on her f/u visit next week.
--- NOTE | 2019-07-18 13:18 | CDI ---
Documentation Clarification Form Date: 07/18/19 From: Elsa Hayden Phone: If you have a question about this query, please contact Alecia Armstrong, Director Operations Broadcast at [phone] between 8am and 5pm. Admit Date: 07/11/19 Discharge Date: 07/17/19 Patient Name: Keara Duong Visit Number: [id number] ATTENTION: The Clinical Documentation Specialists (CDI) and [facility] Coding Staff appreciate your assistance in clarifying documentation. Please respond to the clarification below the line at the bottom and electronically sign. The CDI & [facility] Coding staff will review the response and follow-up if needed. Please note: Queries are made part of the Legal Health Record. If you have any questions, please contact the author of this message via ITS. Dear Dr Phan Garcia, Conflicting documentation has been found in the medical record: Electrical cardioversion procedure report states "symptomatic chronic persistent atrial fibrillation" by Dr Dara Caldwell. Paroxysmal atrial fibrillation is documented in the Cardiac consult on 07/10, PNs 07/11, 07/13, 07/15, 07/16 & 07/17. Per 07/12 PN - patient had elective cardioversion and converted to normal sinus rhythm, on arrival back to floor patient went back nto atrial fibrillation. Failed cardioversion. History/Risk Factors: pneumonia, VIANEY, chronic diastolic CHF w HTN Clinical Indicators: She presents with worsening SOB. Her SOB was associated with palpitations. EKG: atrial fibrillation at a rate of 140 beats a minute QRS is 96 QT interval 348 QTC is 531. No ST segment elevation or depression. Treatment: Cardizem drip, cardioversion, Amiodarone po, In your opinion, what is the most clinically appropriate diagnosis for this patient? Paroxysmal atrial fibrillation Persistent atrial fibrillation Permanent atrial fibrillation Longstanding Other/unspecified Other explanation of clinical findings Unable to determine (no explanation for clinical findings) Final Diagnosis is the same as in D/C summary, Chronic Persistent Atrial Fibrillation. MTDD
== END 2019-07-17 17:11 | disposition home health service (06) | DRG 308 ==
LOC: EC 11:48 → 3SCARD 14:16 → OBSVTOIN 07-11 13:44
PROVIDERS: ADMIT Internal Medicine; ATTEND Internal Medicine
PROC: 5A2204Z Restoration of Cardiac Rhythm, Single (ICD-10-PCS; principal; 2019-07-12 07:15)
DX: I48.19 Other persistent atrial fibrillation (principal); J18.9 Pneumonia, unspecified organism; R45.851 Suicidal ideations; N17.9 Acute kidney failure, unspecified; J98.11 Atelectasis; I50.32 Chronic diastolic (congestive) heart failure; I11.0 Hypertensive heart disease with heart failure; I27.20 Pulmonary hypertension, unspecified; E86.0 Dehydration; I08.3 Combined rheumatic disorders of mitral, aortic and tricuspid valves; R00.1 Bradycardia, unspecified; F43.21 Adjustment disorder with depressed mood; F41.9 Anxiety disorder, unspecified; R26.2 Difficulty in walking, not elsewhere classified; E87.6 Hypokalemia; M54.9 Dorsalgia, unspecified; G89.29 Other chronic pain; M19.90 Unspecified osteoarthritis, unspecified site; H26.9 Unspecified cataract; Z90.49 Acquired absence of other specified parts of digestive tract; Z79.01 Long term (current) use of anticoagulants; Z79.810 Long term (current) use of selective estrogen receptor modulators (SERMs); Z79.899 Other long term (current) drug therapy; Z87.891 Personal history of nicotine dependence; Z96.612 Presence of left artificial shoulder joint; Z98.891 History of uterine scar from previous surgery; Z98.51 Tubal ligation status; Z98.41 Cataract extraction status, right eye; Z96.1 Presence of intraocular lens; Z96.5 Presence of tooth-root and mandibular implants; Z80.9 Family history of malignant neoplasm, unspecified; Z82.49 Family history of ischemic heart disease and other diseases of the circulatory system; Z81.1 Family history of alcohol abuse and dependence
CPT/HCPCS: 36415; 71045; 71046; 80048; 80053; 80061; 81001; 83735; 84484; 85025; 85027; 85610; 85730; 92960; 93005; 93306; 94760; 96365; 96366; 96375; 96376; 99291

== ENCOUNTER 2020-03-25 08:09 | Emergency (ER) | payer MEDICARE, BC ==
[2020-03-25 08:18] VITALS: RESP 18; TEMP 97.7
[2020-03-25] MEDS ORDERED: MORPHINE SULFATE 4 MG/ML SYRINGE IVP STA (08:27)
[2020-03-25] MEDS ORDERED: DIPH,PERTUS(ACELL)TETVAC-LF 0.5 ML VIAL IM ONE (08:28)
[2020-03-25] MEDS ORDERED: LIDOCAINE 1% INJ 10MG/ML (20 ML MDV) SQ ONE (08:29)
[2020-03-25] MEDS ORDERED: TOPICAL SKIN ADHESIVE 1 EACH AMP TOPICAL ONE ×2 (08:29→10:35)
[2020-03-25] MEDS ORDERED: SODIUM CHLORIDE 0.9% 1,000 ML IV SCH (08:30)
--- NOTE | 2020-03-25 08:41 | ED ---
Fall HPI - General Chief Complaint: Fall Stated Complaint: fall/arm lac Time Seen by Provider: 03/25/20 08:18 Source: patient, family, RN notes reviewed, old records reviewed Mode of arrival: wheelchair - History of Present Illness Initial Comments: That is an 89-year-old female presents emergency department today with a laceration skin tear on the right anterior forearm. Patient reports that she was making her bed and tripped and lost her balance. Patient states that she cut her arm on a metal fireplace stand. She would try to hitting her head or eye. She denies any head injury or other areas of pain from the fall. Patient reports she has full range of motion of the fingers. Denies any pain with range of motion of her wrist or elbow. - Related Data Home Medications Medication Instructions Recorded Confirmed Raloxifene [Evista] 60 mg PO DAILY 10/24/15 03/25/20 LORazepam [Ativan] 1 mg PO HS 05/31/18 03/25/20 Furosemide [Lasix] 40 mg PO QAM 11/10/18 03/25/20 Atorvastatin [Lipitor] 20 mg PO Q48H 07/09/19 03/25/20 HYDROcodone/APAP 7.5-325MG [[place] 1 tab PO TID PRN 07/11/19 03/25/20 7.5-325] Amiodarone [Cordarone] 200 mg PO DAILY 03/25/20 03/25/20 Metoprolol Tartrate [Lopressor] 50 mg PO BID 03/25/20 03/25/20 Mirtazapine [Remeron] 15 mg PO HS 03/25/20 03/25/20 Potassium Chloride ER [K-Dur 10] 10 meq PO DAILY 03/25/20 03/25/20 Previous Rx's Medication Instructions Recorded Apixaban [Eliquis] 2.5 mg PO BID #60 tablet 06/09/18 Nitroglycerin Sl Tabs [Nitrostat] 0.4 mg SUBLINGUAL Q5M PRN tab 07/17/19 Cephalexin [Keflex] 500 mg PO Q8HR #21 cap 03/25/20 Allergies Allergy/AdvReac Type Severity Reaction Status Date / Time No Known Allergies Allergy Verified 03/25/20 09:43 Review of Systems ROS Statement: Those systems with pertinent positive or pertinent negative responses have been documented in the HPI. ROS Other: All systems not noted in ROS Statement are negative. Past Medical History Past Medical History: Atrial Fibrillation, Heart Failure, Eye Disorder, Hypertension, Musculoskeletal Disorder, Osteoarthritis (OA) Additional Past Medical History / Comment(s): has lt eye cataract, uses cane when up. History of Any Multi-Drug Resistant Organisms: None Reported Past Surgical History: Appendectomy, Back Surgery, Section, Joint Replacement, Tubal Ligation Additional Past Surgical History / Comment(s): left knee & left shoulder replaced, back surg. x 2. 1 upper dental implant, right and left cataract removal with lens implant, thyroid surgery for nonmalignant tumor Past Anesthesia/Blood Transfusion Reactions: Postoperative Nausea & Vomiting (PONV) Additional Past Anesthesia/Blood Transfusion Reaction / Comment(s): no hx blood transfusion Past Psychological History: Anxiety, Depression Smoking Status: Former smoker Past Alcohol Use History: None Reported Past Drug Use History: None Reported - Past Family History Sister(s) Family Medical History: Cancer Mother Family Medical History: Coronary Artery Disease (CAD) Additional Family Medical History / Comment(s): "heart problems" Father Additional Family Medical History / Comment(s): alcoholic General Exam - General Exam Comments Initial Comments: 89-year-old female. No distress. General appearance: alert, in no apparent distress Head exam: Present: atraumatic, normocephalic, normal inspection Eye exam: Present: normal appearance, PERRL, EOMI. Absent: scleral icterus, conjunctival injection, periorbital swelling ENT exam: Present: normal exam, mucous membranes moist Neck exam: Present: normal inspection. Absent: tenderness, meningismus, ly mphadenopathy Respiratory exam: Present: normal lung sounds bilaterally. Absent: respiratory distress, wheezes, rales, rhonchi, stridor Cardiovascular Exam: Present: regular rate, normal rhythm, normal heart sounds. Absent: systolic murmur, diastolic murmur, rubs, gallop, clicks GI/Abdominal exam: Present: soft, normal bowel sounds. Absent: distended, tenderness, guarding, rebound, rigid Right Elbow exam: Present: normal inspection, full ROM Forearm Wrist exam: Present: full ROM. Absent: normal inspection (Patient has a large skin flap laceration involving the anterior aspect of the right forearm. The area is irregular. ) Hand Wrist exam: Present: normal inspection, full ROM Neuro motor exam: Present: wrist extension intact, thumb opposition intact, thumb IP flexion intact, thumb adduction intact, fingers 2-5 abduction intact Vascular: Present: normal capillary refill Back exam: Present: normal inspection Neurological exam: Present: alert, oriented X3, CN II-XII intact Skin exam: Present: warm Course Vital Signs 03/25/20 03/25/20 08:12 09:53 Temperature 97.7 F Pulse Rate 54 L 56 L Respiratory 18 18 Rate Blood Pressure 196/79 146/70 O2 Sat by Pulse 97 100 Oximetry Procedures - Laceration Laceration #1 Size (cm): 14 Description: flap, irregular Depth: involves muscle layer Anesthetic Used: lidocaine 1% Anesthesia Technique: local infiltration Amount (mls): 10 Pre-repair: wound explored, irrigated extensively Type of Sutures: nylon Size of Sutures: 4-0 Number of Sutures: 21 Technique: simple, interrupted Patient Tolerated Procedure: well, no complications, other ( also had Dermabond placed between the sutures as well as Steri-Strips to close the skin tear.) Medical Decision Making - Medical Decision Making Is an 89-year-old female presents emergency department today for evaluation for large skin tear over the right forearm that she tripped and fell. Patient has a significant flap laceration measuring approximately 14 cm on both sides. The laceration was thoroughly irrigated and closed with 21 sutures, Dermabond and Steri-Strips to tack the edges together. It went together well. Patient is given updated tetanus. She was also given IV Kefzol and IV morphine for pain. X-ray shows no acute osseous abnormality. Patient advised to follow-up with her primary care physician for wound recheck and advised to take antibiotics as prescribed. All questions were answered return parameters were discussed. Critical Care Time Critical Care Time: Yes Disposition Clinical Impression: Forearm laceration, Skin tear Disposition: HOME SELF-CARE Condition: Good Instructions (If sedation given, give patient instructions): Laceration (ED) Additional Instructions: Patient advised to follow-up with primary care doctor within the next week. Patient should keep the wound covered for the next 2 days. Please return to the emergency room in 10 days to have sutures removed. Please leave wound covered for the first 24-48 hours and then leave open to air after that time. Please use clean soap and water to clean the suture area to prevent scabbing over the top of your sutures. Please watch for any signs of infection which may include but not limited to increased pain, swelling, redness, fever or chills. Please return to the emergency room if any signs of infection do occur. Please return to the emergency room for any other concerns or complications. Prescriptions: Cephalexin [Keflex] 500 mg PO Q8HR #21 cap Is patient prescribed a controlled substance at d/c from ED?: No Referrals: Quinn Dailey MD [Primary Care Provider] - 1-2 days Time of Disposition: 10:58
--- NOTE | 2020-03-25 08:52 | XR ---
EXAMINATION TYPE: XR forearm RT DATE OF EXAM: 03/25/2020 COMPARISON: NONE HISTORY: Pain Two views of the forearm demonstrate that the osseous structures appear to be intact. 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 Severe arthropathy of the first carpal metacarpal joint in a pattern suggestive of osteoarthritis. There is no acute fracture or dislocation. Large s oft tissue deformity with subcutaneous emphysema suggestive of laceration. IMPRESSION: 1. No acute fracture or dislocation, correlate for a large soft tissue injury.
[2020-03-25 11:34] VITALS: BP 196/87; PULSE 53
== END 2020-03-25 11:36 | disposition home or self-care (01) ==
LOC: EC 08:09
DX: S51.811A Laceration without foreign body of right forearm, initial encounter (principal); F41.9 Anxiety disorder, unspecified; F32.9 Major depressive disorder, single episode, unspecified; I50.9 Heart failure, unspecified; I11.0 Hypertensive heart disease with heart failure; M19.90 Unspecified osteoarthritis, unspecified site; Z79.891 Long term (current) use of opiate analgesic; Z79.02 Long term (current) use of antithrombotics/antiplatelets; Z96.652 Presence of left artificial knee joint; Z96.612 Presence of left artificial shoulder joint; Z98.42 Cataract extraction status, left eye; Z98.41 Cataract extraction status, right eye; Z96.1 Presence of intraocular lens; Z98.890 Other specified postprocedural states; W01.0XXA Fall on same level from slipping, tripping and stumbling without subsequent striking against object, initial encounter; Y92.009 Unspecified place in unspecified non-institutional (private) residence as the place of occurrence of the external cause; Z23 Encounter for immunization
CPT/HCPCS: 73090; 90715; 99284; 90471; 12005; J2270; J0690; J2001